=== PATIENT | male | born 1950 | race Caucasian/White ===

== ENCOUNTER 2019-02-06 14:38 | Inpatient (IN) | payer MEDICARE ==
[~2019-02-06] VITALS: Ht 172.7 cm; Wt 78.2 kg
[2019-02-06] VITALS (8 sets, daily range): BP systolic 142–174; BP diastolic 72–96
[~2019-02-06 14:38] MED LIST: ALPR0.5T6 PO; ASPI325T70 PO; CITA40TA5 PO; DOXA4TAB3 PO; FINA5TAB4 PO; HYDR-2769 PO; MECL25TA3 PO; MULT-658 PO; NIAC500T PO; OLME1TAB29 PO; PRAV40TA2 PO; SILD50TA PO
[2019-02-06 16:06] LABS: BASO # 0.1 x10^3/uL (0.0-0.2); BASO % 1 % (0-3); EOS # 0.2 x10^3/uL (0.0-0.7); EOS % 3 % (0-3); HEMATOCRIT 40.9 % (39.0-53.0); LYMPH # 1.3 x10^3/uL (1.0-4.8); LYMPH % 16 % (24-48); MEAN CORPUSCULAR HEMOGLOBIN 29 pg (25-35); MEAN CORPUSCULAR HGB CONC 34 g/dL (31-37); MEAN CORPUSCULAR VOLUME 85 fL (79-100); MONO # 0.8 x10^3/uL (0.0-1.1); MONO % 10 % (0-9); NEUT # 5.6 x10^3/uL (1.8-7.7); NEUT % 70 % (31-73); PLATELET COUNT 162 x10^3/uL (140-400); RED CELL DISTRIBUTION WIDTH 13.7 % (11.5-14.5)
--- NOTE | 2019-02-06 16:08 | PHYS DOC ---
Past Medical History Past Medical History: Depression, High Cholesterol, Hypertension, Other Additional Past Medical Histor: chronic hip pain, enlarged prostate Past Surgical History: Hip Replacement, Other Additional Past Surgical Histo: hernia repair, right hand tendon repair Alcohol Use: Occasionally Drug Use: None Adult General Chief Complaint Chief Complaint: HYPERTENSION HPI HPI Patient is a 68 year old male who presents with high blood pressure, tingling in his left arm, and headache is morning. The patient visited his primary care doctor recently and thought he been taken blood pressure medicine at home but it was not blood pressure medicine and was put on a new blood pressure medicine. His blood pressures been running high at home is 216/115 on arrival to the Emergency Department. The patient smokes multiple packs per day. Review of Systems Review of Systems Constitutional: Denies fever or chills [] Eyes: Denies change in visual acuity, redness, or eye pain [] HENT: Denies nasal congestion or sore throat [] Respiratory: Denies cough or shortness of breath [] Cardiovascular: No additional information not addressed in HPI [] GI: Denies abdominal pain, nausea, vomiting, bloody stools or diarrhea [] : Denies dysuria or hematuria [] Musculoskeletal: Denies back pain or joint pain [] Integument: Denies rash or skin lesions [] Neurologic: Reports headache, Denies focal weakness or sensory changes besides intermittent tingling down his left arm. Endocrine: Denies polyuria or polydipsia [] Complete systems were reviewed and found to be within normal limits, except as documented in this note. Current Medications Current Medications Current Medications Medications (Trade) Dose Ordered Sig/Donato Start Time Stop Time Status Last Admin Dose Admin Hydralazine HCl (Apresoline Inj) 10 mg 1X ONCE 02/06/19 16:15 02/06/19 16:16 DC 02/06/19 16:33 10 MG Nicardipine HCl 50 mg/Sodium Chloride 250 ml @ 25 mls/hr CONT PRN 02/06/19 18:00 02/06/19 18:19 25 MLS/HR Allergies Allergies Allergies Coded Allergies Type Severity Reaction Last Updated Verified No Known Drug Allergies 02/10/14 No Physical Exam Physical Exam Constitutional: Well developed, well nourished, no acute distress, non-toxic appearance. [] HENT: Normocephalic, atraumatic, bilateral external ears normal, oropharynx moist, no oral exudates, nose normal. [] Eyes: PERRLA, EOMI, conjunctiva normal, no discharge. [] Neck: Normal range of motion, no tenderness, supple, no stridor. [] Cardiovascular:Heart rate regular rhythm, no murmur [] Lungs & Thorax: Bilateral breath sounds clear to auscultation [] Abdomen: Bowel sounds normal, soft, no tenderness, no masses, no pulsatile masses. [] Skin: Warm, dry, no erythema, no rash. [] Back: No tenderness, no CVA tenderness. [] Extremities: No tenderness, no cyanosis, no clubbing, ROM intact, no edema. [] Neurologic: Alert and oriented X 3, normal motor function, normal sensory function, no focal deficits noted. [] Psychologic: Affect normal, judgement normal, mood normal. [] Current Patient Data Vital Signs Vital Signs Date Time Temp Pulse Resp B/P (MAP) Pulse Ox O2 Delivery O2 Flow Rate FiO2 02/06/19 16:33 58 235/120 02/06/19 15:40 98.6 16 97 Room Air 98.6 Lab Values Laboratory Tests Test 02/06/19 15:57 02/06/19 16:30 White Blood Count 8.0 x10^3/uL (4.0-11.0) Red Blood Count 4.80 x10^6/uL (4.30-5.70) Hemoglobin 14.0 g/dL (13.0-17.5) Hematocrit 40.9 % (39.0-53.0) Mean Corpuscular Volume 85 fL (79-100) Mean Corpuscular Hemoglobin 29 pg (25-35) Mean Corpuscular Hemoglobin Concent 34 g/dL (31-37) Red Cell Distribution Width 13.7 % (11.5-14.5) Platelet Count 162 x10^3/uL (140-400) Neutrophils (%) (Auto) 70 % (31-73) Lymphocytes (%) (Auto) 16 % (24-48) L Monocytes (%) (Auto) 10 % (0-9) H Eosinophils (%) (Auto) 3 % (0-3) Basophils (%) (Auto) 1 % (0-3) Neutrophils # (Auto) 5.6 x10^3/uL (1.8-7.7) Lymphocytes # (Auto) 1.3 x10^3/uL (1.0-4.8) Monocytes # (Auto) 0.8 x10^3/uL (0.0-1.1) Eosinophils # (Auto) 0.2 x10^3/uL (0.0-0.7) Basophils # (Auto) 0.1 x10^3/uL (0.0-0.2) Sodium Level 142 mmol/L (136-145) Potassium Level 4.2 mmol/L (3.5-5.1) Chloride Level 107 mmol/L (98-107) Carbon Dioxide Level 29 mmol/L (21-32) Anion Gap 6 (6-14) Blood Urea Nitrogen 16 mg/dL (8-26) Creatinine 0.9 mg/dL (0.7-1.3) Estimated GFR (Cockcroft-Gault) 84.4 BUN/Creatinine Ratio 18 (6-20) Glucose Level 99 mg/dL (70-99) Calcium Level 9.4 mg/dL (8.5-10.1) Total Bilirubin 0.3 mg/dL (0.2-1.0) Aspartate Amino Transferase (AST) 13 U/L (15-37) L Alanine Aminotransferase (ALT) 9 U/L (16-63) L Alkaline Phosphatase 93 U/L (46-116) Troponin I Quantitative 0.074 ng/mL (0.000-0.055) Total Protein 7.6 g/dL (6.4-8.2) Albumin 3.4 g/dL (3.4-5.0) Albumin/Globulin Ratio 0.8 (1.0-1.7) L Laboratory Tests 02/06/19 15:57 Laboratory Tests 02/06/19 16:30 EKG EKG EKG interpreted by Dr. Garcia Sinus with rate of 56, No STEMI.[] Radiology/Procedures Radiology/Procedures IMAGING REPORT Signed PATIENT: DEBBIE RCIO DACCOUNT: [id number] : 1950 LOCATION: ER AGE: 68 SEX: M EXAM STATUS: REG ER ORD. PHYSICIAN: LEXY ETIENNE APRN REASON: headache PROCEDURE: CT HEAD WO CONTRAST PQRS Compliance Statement: One or more of the following individualized dose reduction techniques were utilized for this examination: 1. Automated exposure control 2. Adjustment of the mA and/or kV according to patient size 3. Use of iterative reconstruction technique CT head without contrast 02/06/2019 3:57 PM INDICATION: Headache COMPARISON: CT maxillofacial 06/04/2012 TECHNIQUE: Multiple axial CT images of the head were obtained from skull base through the vertex without intravenous contrast. FINDINGS: Head: Ventricles, sulci and basal cisterns are within normal limits. Low-attenuation in the periventricular white matter is suggestive of chronic small vessel ischemic changes. There is no hydrocephalus. Casiano-white matter differentiation is normal. There is no acute intracranial hemorrhage. There is no mass, mass effect or midline shift. Posterior fossa is normal in appearance. Visualized portions of the orbits are normal. Small mucus retention cyst is identified in the left ethmoid air cells otherwise, paranasal sinuses are well aerated. Mastoid air cells are well aerated. Scalp and calvaria are normal. IMPRESSION: No acute intracranial hemorrhage. Electronically signed by: Ehsan Eisenberg MD (02/06/2019 4:30 PM) [facility] DICTATED and SIGNED BY: EHSAN EISENBERG MD DATE: 02/06/19 1630 [][facility] [address] [place] [address] IMAGING REPORT Signed PATIENT: DEBBIE RICO DACCOUNT: [id number] : 1950 LOCATION: ER AGE: 68 SEX: M EXAM STATUS: REG ER ORD. PHYSICIAN: LEXY ETIENNE APRN REASON: cp PROCEDURE: CHEST PA & LATERAL Exam performed: 2 views of the chest. Indication: Chest pain Date of Service: 02/06/2019 3:57 PM . Comparison : One view chest from 01/02/2015 Findings: PA and lateral radiographs of the chest reveal a normal cardiomediastinal contour. The lungs are clear. No pleural fluid is seen. The visualized osseous structures are unremarkable. Impression: No acute cardiopulmonary process seen. Electronically signed by: Carina Vazquez MD (02/06/2019 4:26 PM) [facility] DICTATED and SIGNED BY: CARINA VAZQUEZ MD DATE: 02/06/19 1626 Course & Med Decision Making Course & Med Decision Making Pertinent Labs and Imaging studies reviewed. (See chart for details) Will order labs, EKG, Chest Xray, and CT head. Also order Hyrdalazine for blood pressure. Discussed with patient that I want to admit him. The patient refuses admission and states that he has to get his animals inside. Discussed with patient the risks of walking around with high blood pressure that include , Stroke, and MT. The patient still declined admission. Imaging is unremarkable. Labs show Troponin is elevated at 0.074. 1728: Once again discussed with patient the importance of admission. BP is 233/115 during conversation. Discussed how elevated troponin is likely related to hypertensive emergency. Once again discussed risks of going home include stroke, MT, or . Patient states he will think about it. 1753: Patient agreed to stay. Will start Cardene drip and page Dr. Olmedo for admission. 181: Discussed with Dr. Olmedo who agreed to accept admission to hospital. Cardene has lowered blood pressure to 207/111. Nursing will continue to titrate. Ordered serial troponin and consulted Cards. Dragon Disclaimer Dragon Disclaimer This electronic medical record was generated, in whole or in part, using a voice recognition dictation system. Departure Departure Impression: Primary Impression: Hypertensive emergency Disposition: ADMITTED INPATIENT Admitting Physician: Althea Olmedo Condition: CRITICAL Referrals: ALTHEA OLMEDO MD (PCP) LEXY ETIENNE APRN Feb 06, 2019 16:08
[2019-02-06] MEDS ORDERED: hydrALAZINE 20 MG/ML VIAL. IVP ONE (16:15)
--- NOTE | 2019-02-06 16:29 | RAD ---
Exam performed: 2 views of the chest. Indication: Chest pain Date of Service: 02/06/2019 3:57 PM . Comparison : One view chest from 01/02/2015 Findings: PA and lateral radiographs of the chest reveal a normal cardiomediastinal contour. The lungs are clear. No pleural fluid is seen. The visualized osseous structures are unremarkable. Impression: No acute cardiopulmonary process seen. Electronically signed by: Carina Vazquez MD (02/06/2019 4:26 PM) [facility]
--- NOTE | 2019-02-06 16:32 | RAD ---
RS Compliance Statement: One or more of the following individualized dose reduction techniques were utilized for this examination: 1. Automated exposure control 2. Adjustment of the mA and/or kV according to patient size 3. Use of iterative reconstruction technique CT head without contrast 02/06/2019 3:57 PM INDICATION: Headache COMPARISON: CT maxillofacial 06/04/2012 TECHNIQUE: Multiple axial CT images of the head were obtained from skull base through the vertex without intravenous contrast. FINDINGS: Head: Ventricles, sulci and basal cisterns are within normal limits. Low-attenuation in the periventricular white matter is suggestive of chronic small vessel ischemic changes. There is no hydrocephalus. Casiano-white matter differentiation is normal. There is no acute intracranial hemorrhage. There is no mass, mass effect or midline shift. Posterior fossa is normal in appearance. Visualized portions of the orbits are normal. Small mucus retention cyst is identified in the left ethmoid air cells otherwise, paranasal sinuses are well aerated. Mastoid air cells are well aerated. Scalp and calvaria are normal. IMPRESSION: No acute intracranial hemorrhage. Electronically signed by: Kaylynn Wilder MD (02/06/2019 4:30 PM) [facility]
[2019-02-06 17:00] LABS: CALCIUM 9.4 mg/dL (8.5-10.1); CREATININE 0.9 mg/dL (0.7-1.3); GFR 84.4; POTASSIUM 4.2 mmol/L (3.5-5.1)
[2019-02-06 17:09] LABS: ALBUMIN 3.4 g/dL (3.4-5.0); ALBUMIN/GLOBULIN RATIO 0.8 (1.0-1.7); TOTAL BILIRUBIN 0.3 mg/dL (0.2-1.0); TOTAL PROTEIN 7.6 g/dL (6.4-8.2)
[2019-02-06] MEDS ORDERED: MORPHINE SULFATE 2 MG/ML VIAL. IV PRN (18:45)
[2019-02-06] MEDS ORDERED: ONDANSETRON PF 4 MG/2 ML VIAL. IV PRN (18:45)
--- NOTE | 2019-02-06 20:10 | NUR ---
Pt arrived on unit via cart accompanied by ED RN. Pt oriented to unit policies and procedures, call light, and bathroom usage. Pt able to transfer independently into ICU bed, height and weight obtained, drip rate verified, report received and assessment performed. pt has belongings with him in a bag and brought medications from home. Medications reconciled and orders received from Dr. Mccarthy to restart home medications.
[2019-02-06] MEDS ORDERED: OLAN5TAB9 PO (22:16)
[2019-02-06] MEDS ORDERED: IRBE300T3 PO (22:16)
[2019-02-06] MEDS ORDERED: CARI1.5C PO (22:16)
[2019-02-06] MEDS ORDERED: ACETAMINOPHEN 325 MG TABLET. PO PRN (22:30)
[2019-02-06] MEDS ORDERED: hydrALAZINE 20 MG/ML VIAL. IVP PRN (22:30)
[2019-02-06] MEDS ORDERED: ASPI325T8 PO (22:42)
[2019-02-06] MEDS ORDERED: amLODIPine BESYLATE 5 MG TABLET PO ONE (22:45)
[2019-02-06] MEDS ORDERED: CARIPRAZINE HYDROCHLORIDE 1.5 MG PO PRN (22:45)
[2019-02-06] MEDS ORDERED: OLANZapine 5 MG TABLET PO PRN (23:00)
[2019-02-06] MEDS ORDERED: DOXAZOSIN MESYLATE 4 MG TABLET. PO SCH (23:00)
[2019-02-06] MEDS: ASPIRIN 325 MG TABLET PO SCH (23:42)
[2019-02-06] MEDS: ALPRAZolam 0.5 MG TABLET PO SCH (23:43)
[2019-02-07] VITALS (10 sets, daily range): BP systolic 129–169; BP diastolic 71–93
[2019-02-07 05:01] LABS: CALCIUM 9.1 mg/dL (8.5-10.1); CREATININE 0.8 mg/dL (0.7-1.3); GFR 96.7; POTASSIUM 3.4 mmol/L (3.5-5.1)
--- NOTE | 2019-02-07 06:28 | EKG ---
[facility] [address] [place] [address] Test Date: 2019-02-06 Test Time: 16:24:15 Pat Name: DEBBIE RICO Department: Room: 114 1 Gender: M Motion Picture Commentator: : 1950 Requested By: LEXY ETIENNE Order Number: [id number] Reading MD: Elbert Brooks MD Measurements Intervals [place] Rate: 55 P: 4 RI: 156 QRS: -6 QRSD: 84 T: 19 QT: 412 QTc: 400 Interpretive Statements SINUS RHYTHM Electronically Signed On 02-07-2019 15:16:20 CDT by Elbert Brooks MD
[2019-02-07] MEDS: ALPRAZolam 0.5 MG TABLET PO SCH ×2 (08:10→13:05)
[2019-02-07] MEDS: ASPIRIN 325 MG TABLET PO SCH (08:10)
[2019-02-07] MEDS ORDERED: FINASTERIDE 5 MG TABLET. PO SCH (09:00)
[2019-02-07] MEDS ORDERED: amLODIPine BESYLATE 5 MG TABLET PO SCH (09:00)
[2019-02-07] MEDS ORDERED: OLANZapine 5 MG TABLET PO SCH (09:00)
[2019-02-07] MEDS ORDERED: CARIPRAZINE HYDROCHLORIDE 1.5 MG PO SCH (09:00)
[2019-02-07] MEDS ORDERED: DOXAZOSIN MESYLATE 4 MG TABLET. PO SCH (09:00)
[2019-02-07] MEDS ORDERED: ENOXAPARIN 40 MG/0.4 ML SYRINGE. SQ SCH (09:00)
--- NOTE | 2019-02-07 10:37 | PDOC2 ---
NORMA,JOSUEZOIE GREEN 02/07/19 1037: CARDIAC CONSULT DATE OF CONSULT Date of Consult DATE: 02/07/19 TIME: 10:35 REASON FOR CONSULT Reason for Consult: Hypertensive urgency Elevated troponin REFERRING PHYSICIAN Referring Physician: Sascha Bradshaw APRN SOURCE Source: Chart review, Patient HISTORY OF PRESENT ILLNESS HISTORY OF PRESENT ILLNESS This is a 68 yo male who presented secondary to headache, elevated blood pressure and tingling in his left arm. Patient reports blood pressure has been significantly elevated with SBP near 200 for the last 3 weeks. Associated with MCCLOUD, which is unusual for him. Yesterday, blood pressure was 230/110 so he call PCP's office. Was referred to the ED for further evaluation and treatment. Blood pressure significantly elevated upon arrival. Was placed on Cardene gtt. Patient denies any shortness of breath, chest pain, palpitations, dizziness, diaphoresis, or nausea/vomiting. MCCLOUD resolved this morning following blood pressure control. Reports having stress test about 3 months ago, thinks it was conducted here, but I do not see record of this. Reviewed [facility] records, but no stress test found. PAST MEDICAL HISTORY Cardiovascular: CAD (s/p PCI/stent about 10 years ago), HTN, Hyperlipidemia Pulmonary: COPD Psych: Anxiety, Depression Musculoskeletal: Osteoarthritis Renal/: Benign prostatic enlarg. PAST SURGICAL HISTORY Past Surgical History: Hernia Repair, Total hip replacement (right ), Other (right hand surgery ) FAMILY HISTORY Family History: Heart Disease SOCIAL HISTORY Smoke: <1 pack per day ALCOHOL: occassional Drugs: None Lives: Roommate (girlfriend ) CURRENT MEDICATIONS CURRENT MEDICATIONS Current Medications Medications (Trade) Dose Ordered Sig/Donato Route PRN Reason Start Time Stop Time Status Last Admin Dose Admin Hydralazine HCl (Apresoline Inj) 10 mg 1X ONCE IVP 02/06/19 16:15 02/06/19 16:16 DC 02/06/19 16:33 Nicardipine HCl 50 mg/Sodium Chloride 250 ml @ 25 mls/hr CONT PRN IV SEE I/O RECORD 02/06/19 18:00 02/06/19 19:04 Morphine Sulfate (Morphine Sulfate) 2 mg PRN Q2HR PRN IV PAIN 02/06/19 18:45 02/07/19 18:44 02/07/19 05:36 Acetaminophen (Tylenol) 650 mg PRN Q6HRS PRN PO HEADACHE 02/06/19 22:30 02/07/19 00:30 Amlodipine Besylate (Norvasc) 5 mg DAILY PO 02/07/19 09:00 02/07/19 08:15 Amlodipine Besylate (Norvasc) 5 mg 1X ONCE PO 02/06/19 22:45 02/06/19 22:46 DC 02/06/19 23:43 Hydralazine HCl (Apresoline Inj) 10 mg PRN Q4HRS PRN IVP ELEVATED BP, SEE COMMENTS 02/06/19 22:30 02/07/19 05:05 Alprazolam (Xanax) 0.5 mg TID PO 02/06/19 23:00 02/07/19 08:15 Finasteride (Proscar) 5 mg DAILY PO 02/07/19 09:00 02/07/19 08:15 Aspirin (Graciela Aspirin) 325 mg DAILYWBKFT PO 02/06/19 23:00 02/07/19 08:15 Doxazosin Mesylate (Cardura) 4 mg DAILY PO 02/07/19 09:00 02/07/19 08:15 Olanzapine (ZyPREXA) 5 mg DAILY PO 02/07/19 09:00 02/07/19 08:15 ALLERGIES ALLERGIES: Coded Allergies: No Known Drug Allergies (Unverified , 02/10/14) ROS Review of System 14 point ROS conducted with pertinent positives noted above in HPI PHYSICAL EXAM General: Alert, Oriented X3, Cooperative, No acute distress HEENT: Atraumatic, Mucous membr. moist/pink Lungs: Clear to auscultation, Normal air movement Heart: Regular rate, Normal S1, Normal S2, Other (2/6 systolic murmur ) Abdomen: Soft, No tenderness Extremities: No edema, Normal pulses Skin: No significant lesion Neuro: Normal speech, Sensation intact Psych/Mental Status: Mental status NL, Mood NL MUSCULOSKELETAL: Osteoarthritic changes both hands VITALS/I&O VITALS/I&O: Vital Signs Date Time Temp Pulse Resp B/P (MAP) Pulse Ox O2 Delivery O2 Flow Rate FiO2 02/07/19 08:15 80 159/72 02/07/19 08:00 Room Air 02/07/19 07:00 97.9 17 98 97.9 I & O 02/06/19 02/06/19 02/07/19 15:00 23:00 07:00 Intake Total 271 ml Output Total 950 ml Balance -679 ml LABS Lab: Laboratory Tests Test 02/06/19 15:57 02/06/19 16:30 02/06/19 21:40 02/07/19 04:30 White Blood Count 8.0 x10^3/uL (4.0-11.0) Red Blood Count 4.80 x10^6/uL (4.30-5.70) Hemoglobin 14.0 g/dL (13.0-17.5) Hematocrit 40.9 % (39.0-53.0) Mean Corpuscular Volume 85 fL (79-100) Mean Corpuscular Hemoglobin 29 pg (25-35) Mean Corpuscular Hemoglobin Concent 34 g/dL (31-37) Red Cell Distribution Width 13.7 % (11.5-14.5) Platelet Count 162 x10^3/uL (140-400) Neutrophils (%) (Auto) 70 % (31-73) Lymphocytes (%) (Auto) 16 % (24-48) L Monocytes (%) (Auto) 10 % (0-9) H Eosinophils (%) (Auto) 3 % (0-3) Basophils (%) (Auto) 1 % (0-3) Neutrophils # (Auto) 5.6 x10^3/uL (1.8-7.7) Lymphocytes # (Auto) 1.3 x10^3/uL (1.0-4.8) Monocytes # (Auto) 0.8 x10^3/uL (0.0-1.1) Eosinophils # (Auto) 0.2 x10^3/uL (0.0-0.7) Basophils # (Auto) 0.1 x10^3/uL (0.0-0.2) Sodium Level 142 mmol/L (136-145) 143 mmol/L (136-145) Potassium Level 4.2 mmol/L (3.5-5.1) 3.4 mmol/L (3.5-5.1) L Chloride Level 107 mmol/L (98-107) 108 mmol/L (98-107) H Carbon Dioxide Level 29 mmol/L (21-32) 27 mmol/L (21-32) Anion Gap 6 (6-14) 8 (6-14) Blood Urea Nitrogen 16 mg/dL (8-26) 10 mg/dL (8-26) Creatinine 0.9 mg/dL (0.7-1.3) 0.8 mg/dL (0.7-1.3) Estimated GFR (Cockcroft-Gault) 84.4 96.7 BUN/Creatinine Ratio 18 (6-20) Glucose Level 99 mg/dL (70-99) 98 mg/dL (70-99) Calcium Level 9.4 mg/dL (8.5-10.1) 9.1 mg/dL (8.5-10.1) Total Bilirubin 0.3 mg/dL (0.2-1.0) Aspartate Amino Transferase (AST) 13 U/L (15-37) L Alanine Aminotransferase (ALT) 9 U/L (16-63) L Alkaline Phosphatase 93 U/L (46-116) Troponin I Quantitative 0.074 ng/mL (0.000-0.055) 0.088 ng/mL (0.000-0.055) 0.117 ng/mL (0.000-0.055) Total Protein 7.6 g/dL (6.4-8.2) Albumin 3.4 g/dL (3.4-5.0) Albumin/Globulin Ratio 0.8 (1.0-1.7) L Laboratory Tests 02/06/19 15:57 Laboratory Tests 02/06/19 16:30 02/07/19 04:30 STRESS TEST STRESS TEST Conclusion 1. No evidence of stress induced EKG changes. 2. Normal myocardial perfusion at stress and rest. 3. Normal EF at stress of > 70% 4. Low risk study. DATE: 09/07/15 1447 ASSESSMENT/PLAN ASSESSMENT/PLAN 1. Malignant hypertension; off Cardene gtt. BP better controlled with addition of amlodipine 2. Mild troponin elevation; highest 0.117. Most probably type II, demand ischemia in the setting of above. 3. CAD s/p PCI/stent about 10 years ago. 4. Hyperlipidemia; statin 5. Hypokalemia Recommendations ASA, statin Lipid panel Echo to assess LV systolic function Outpatient ischemic evaluation unless echo significantly abnormal. Supportive care LIZBETH DOSHI MD 02/07/19 6543: CARDIAC CONSULT ASSESSMENT/PLAN ASSESSMENT/PLAN Patient seen and examined. Agree with above nurse practitioner note. 68-year-old man presenting with hypertension. Troponin elevation related to high blood pressure. No obvious other ischemic findings. Echo within normal limits. Restart home medications and he feels that his angiotensin receptor chacha is not working and therefore we will put him on amlodipine. Supportive care for now. Follow-up in the office as needed. JOSUE GREEN APRN Feb 07, 2019 10:37 LIZBETH DOSHI MD Feb 07, 2019 18:38
[2019-02-07] MEDS ORDERED: POTASSIUM CHLORIDE 20 MEQ TABLET.ER. PO ONE (10:45)
--- NOTE | 2019-02-07 11:05 | CARD ---
MR#: [id number] Date of Study: 02/07/2019 Ordering Physician: JOSUE GREEN, Referring Physician: JOSUE GREEN, Tech: Trini Tay TANNER APPROVED REPORT EXAM: Two-dimensional and M-mode echocardiogram with Doppler and color Doppler. Other Information Quality : AverageHR: 76bpm Rhythm : PVC's INDICATION Elevated Troponin 2D DIMENSIONS RVDd3.5 (2.9-3.5cm)Left Atrium(2D)3.5 (1.6-4.0cm) IVSd1.6 (0.7-1.1cm)Aortic Root(2D)3.2 (2.0-3.7cm) LVDd4.4 (3.9-5.9cm)LVOT Diameter2.0 (1.8-2.4cm) PWd1.3 (0.7-1.1cm)LVDs2.3 (2.5-4.0cm) FS (%) 47.4 %SV68.2 ml LVEF(%)79.1 (>50%) M-Mode DIMENSIONS Left Atrium(MM)4.57 (2.5-4.0cm)Aortic Root3.58 (2.2-3.7cm) Aortic Valve AoV Peak Shaheed.197.4cm/sAoV VTI35.1cm AO Peak GR.15.6mmHgLVOT VTI 24.66cm AO Mean GR.10mmHgAVA (VTI)2.20cm2 AI P 1/2 Elbz600cr Mitral Valve MV E Uvtlyabg16.5cm/sMV DECEL NCJH098bo MV A Ppdkzfku56.9cm/sE/A Ratio0.6 MV A Jnqkdhhx13hf TDI Lateral E' P. V7.08cm/sMedial E' P. V6.50cm/s E/Lateral E'8.7E/Medial E'9.5 LEFT VENTRICLE The left ventricle is normal size. There is moderate concentric left ventricular hypertrophy. The lef t ventricle is hyperdynamic. The Ejection Fraction is >70%. There is normal LV segmental wall motion. Transmitral Doppler flow pattern is Grade I-abnormal relaxation pattern. RIGHT VENTRICLE The right ventricle is normal size. There is normal right ventricular wall thickness. The right ventr icular systolic function is normal. ATRIA The left atrium is mildly dilated. The right atrium size is normal. The interatrial septum is intact with no evidence for an atrial septal defect or patent foramen ovale as noted on 2-D or Doppler imagi ng. AORTIC VALVE The aortic valve is normal in structure and function. The aortic valve is trileaflet. Doppler and Col or Flow revealed mild to moderate aortic regurgitation. There is no significant aortic valvular steno sis. MITRAL VALVE Mitral annular calcification is moderate. There is no evidence of mitral valve prolapse. There is no mitral valve stenosis. Doppler and Color-flow revealed trace mitral regurgitation. TRICUSPID VALVE The tricuspid valve is normal in structure and function. Doppler and Color Flow revealed no tricuspid valve regurgitation noted. There is no tricuspid valve prolapse or vegetation. There is no tricuspid valve stenosis. PULMONIC VALVE The pulmonic valve is not well visualized. GREAT VESSELS The aortic root is normal in size. The ascending aorta is normal in size. The IVC is normal in size a nd collapses >50% with inspiration. PERICARDIAL EFFUSION There is no evidence of significant pericardial effusion. Critical Notification Critical Value: No <Conclusion> The left ventricle is hyperdynamic. The Ejection Fraction is >70%. There is normal LV segmental wall motion. Transmitral Doppler flow pattern is Grade I-abnormal relaxation pattern. Mild to moderate aortic regurgitation. Trace mitral regurgitation. There is no evidence of significant pericardial effusion. Signed by : Loi Osei, Electronically Approved : 02/07/2019 11:05:47
[2019-02-07 11:32] LABS: MAGNESIUM 2.1 mg/dL (1.8-2.4)
[2019-02-07 11:33] LABS: CHOLESTEROL/HDL RATIO 4.4
--- NOTE | 2019-02-07 14:18 | HP ---
ADMIT DATE: 02/06/2019 CHIEF COMPLAINT AND HISTORY OF PRESENT ILLNESS: This 68-year-old white male is well known to me in followup in the office. The patient had several days of headache with extremely high blood pressures, presenting to the Emergency Room where he was found to be hypertensive emergency requiring Cardene drip and admitted to the ICU. PAST MEDICAL HISTORY: Remarkable for hypertension, coronary artery disease, hyperlipidemia, depression, BPH. PAST SURGICAL HISTORY: He has had prior hip replacement, hernia repair, right hand tendon repair. MEDICATIONS: Brought with the patient ____. ALLERGIES: No known drug allergies. SOCIAL HISTORY: The patient has a history of smoking, occasionally drinks some alcohol ____ abuse drugs. REVIEW OF SYSTEMS: Remarkable for headache ____. HEAD, EYES, EARS, NOSE AND THROAT: Unremarkable. NECK: Supple, without or thyromegaly. CHEST: ____. HEART: Regular rate and rhythm without S3, S4 or murmur. ABDOMEN: Soft, nontender, without hepatosplenomegaly or mass. EXTREMITIES: Without cyanosis, clubbing or edema. NEUROLOGIC: Intact. LABORATORY DATA: CBC on admission is within normal limits. ____. Renal function is within normal limits. IMPRESSION: 1. Hypertensive urgency as above. 2. History of coronary artery disease. 3. Bump in troponin. PLAN: Await cardiological evaluation. I believe he is stable enough at this point in time to move out of the ICU and the same has been discussed with nursing. We will continue amlodipine ____ treated appropriately. ALTHEA OLMEDO MD DR: JANEEN/donnell JOB#: [id number] / [id number]
--- NOTE | 2019-02-07 16:09 | NUR ---
SS following for discharge planning. SS reviewed pt chart. Pt is from home and is currently on room air. No discharge needs noted at this time. SS will continue to follow for discharge planning.
[2019-02-07] MEDS ORDERED: AMLO5TAB10 PO (17:20)
--- NOTE | 2019-02-07 18:37 | NUR ---
Discharge Note: PT DISCHARGED HOME WITH SELF CARE. PT LEFT FACILITY VIA PRIVATE VEHICLE WITH FRIEND AT 1835. PT STABLE AND ALERT UPON DISCHARGE. PT PIV REMOVED FROM R FA WITHOUT COMPLICATIONS BANDAGE APPLIED. PT EDUCATED ABOUT DISCHARGE INSTRUCTIONS, DISCHARGE MEDICATIONS, AND FOLLOW-UP INSTRUCTIONS. PRESCRIPTION FOR AMLODIPINE 5MG PO DAILY CALLED INTO [facility] IN [place]. PT VOICED NO CONCERNS AT THIS TIME. DEBBIE RICO ICU Discharge instructions and discharge home medications reviewed with Patient and a copy given. All questions have been answered and understanding verbalized.
--- NOTE | 2019-02-07 20:55 | DS ---
DATE OF DISCHARGE: 02/07/2019 PRIMARY DIAGNOSIS: Hypertensive urgency. ADDITIONAL DIAGNOSES: History of coronary artery disease, elevated troponin. CHIEF COMPLAINT AND HISTORY OF PRESENT ILLNESS: This 68-year-old white male admitted through the Emergency Room with headache and extremely high blood pressure. He was placed on a Cardene drip and admitted to the intensive care unit. SUMMARY OF STAY: The patient was admitted. Blood pressures came down with the Cardene; he was given p.o. amlodipine. Cardene was able to be discontinued with good blood pressures throughout the day. Cardiology saw him and felt troponin was not of significance and had an echocardiogram that looked relatively normal. It was felt safe to discharge on p.o. amlodipine and this was accomplished. DISPOSITION: The patient is discharged to home. DIET: Regular. ACTIVITY: As tolerated, office in 1 week. DISCHARGE MEDICATIONS: Include his regular home medications plus amlodipine 5 mg daily. ALTHEA OLMEDO MD DR: JANEEN/donnell JOB#: [id number] / [id number]
[2019-02-07] MEDS ORDERED: ATORVASTATIN CALCIUM 10 MG TABLET. PO SCH (21:00)
== END 2019-02-07 18:40 | disposition home or self-care (01) | DRG 305 ==
LOC: ER 14:38 → 1 WEST ICU 18:31
PROVIDERS: ADMIT Family Medicine; ATTEND Family Medicine
DX: I16.1 Hypertensive emergency (principal); E78.00 Pure hypercholesterolemia, unspecified; E78.5 Hyperlipidemia, unspecified; E87.6 Hypokalemia; F17.210 Nicotine dependence, cigarettes, uncomplicated; I10 Essential (primary) hypertension; I25.10 Atherosclerotic heart disease of native coronary artery without angina pectoris; J44.9 Chronic obstructive pulmonary disease, unspecified; N40.0 Benign prostatic hyperplasia without lower urinary tract symptoms; Z96.641 Presence of right artificial hip joint; Z95.5 Presence of coronary angioplasty implant and graft; F32.9 Major depressive disorder, single episode, unspecified; F41.9 Anxiety disorder, unspecified; G89.29 Other chronic pain; M19.90 Unspecified osteoarthritis, unspecified site
CPT/HCPCS: 36415; 70450; 71046; 80048; 80053; 80061; 83735; 84443; 84484; 85025; 93005; 93306; J0360; J2270; J7050; 99285-25; G0378; J7030

== ENCOUNTER 2020-12-08 14:14 | Inpatient (IN) | payer MEDICARE ==
[~2020-12-08] VITALS: Ht 175.3 cm; Wt 83.5 kg
[~2020-12-08 14:14] MED LIST changes: +AMLO-186 PO; +ASPI325T8 PO; +CARI1.5C PO; +CYAN50009 PO; +IRBE300T23 PO; +MECL-75 PO; -MECL25TA3 PO; +METO25TA4 PO; +OLAN5TAB67 PO; +SULF1TAB24 PO
[2020-12-08] MEDS ORDERED: methylPREDNISolone SOD SUCC PF 125 MG/2 ML VIAL. IV ONE (14:30)
[2020-12-08] MEDS ORDERED: ACETAMINOPHEN 500 MG TABLET PO ONE (14:30)
[2020-12-08] MEDS ORDERED: ALBUTEROL SULFATE 2.5 MG/3 ML NEBU. NEB ONE (14:30)
--- NOTE | 2020-12-08 14:40 | PHYS DOC ---
Past Medical History Past Medical History: Anxiety, Depression, High Cholesterol, Hypertension, Other Additional Past Medical Histor: chronic hip pain, enlarged prostate (ARLINE MINER BOAT PULLER) Past Surgical History: Hip Replacement, Other Additional Past Surgical Histo: hernia repair, right hand tendon repair (ARLINE MINER BOAT PULLER) Smoking Status: Current Every Day Smoker Alcohol Use: Occasionally Drug Use: None (ARLINE MINER BOAT PULLER) General Adult HPI: HPI: Patient is a 70 year old male who presents with 1 week of generally just not feeling good and weakness with some diarrhea. He is now more short of air and running a fever of 103.0 axillary upon arrival. Patient is tachycardic. He is not at this time requiring oxygen. He said he did 3 breathing treatments prior to EMS. Patient is not vaccinated for Covid. Patient has a history of depression, anxiety, hip replacement, smoker, hernia repair, COPD, A. fib, hypertension high cholesterol. Patient currently denies chest pain, dizziness, headache, numbness or tingling, focal weakness, vision change, abdominal pain, nausea, vomiting, constipation or diarrhea today. (ARLINE MINER BOAT PULLER) Review of Systems: Review of Systems: Constitutional: + fever or chills. [] Eyes: Denies change in visual acuity. [] HENT: Denies nasal congestion or sore throat. [] Respiratory: +cough or +shortness of breath. [] Cardiovascular: Denies chest pain or edema. [] GI: Denies abdominal pain, nausea, vomiting, bloody stools or +diarrhea. [] : Denies dysuria. [] Musculoskeletal: Denies back pain or joint pain. + Generalized weakness [] Integument: Denies rash. [] Neurologic: Denies headache, focal weakness or sensory changes. [] Endocrine: Denies polyuria or polydipsia. [] Lymphatic: Denies swollen glands. [] Psychiatric: Denies depression or anxiety. [] (ARLINE MINER BOAT PULLER) Heart Score: C/O Chest Pain: No HEART Score for Chest Pain: HEART Score for Chest Pain Response (Comments) Value History Slighlty/Non-Suspicious 0 ECG Nonspecific Repolarizatio 1 Age > 65 2 Risk Factors 1 or 2 Risk Factors 1 Troponin < Normal Limit 0 Total 4 Risk Factors: Risk Factors: DM, Current or recent (<one month) smoker, HTN, HLP, family history of CAD, obesity. Risk Scores: Score 0 - 3: 2.5% MACE over next 6 weeks - Discharge Home Score 4 - 6: 20.3% MACE over next 6 weeks - Admit for Clinical Observation Score 7 - 10: 72.7% MACE over next 6 weeks - Early Invasive Strategies ([facility] APRN) Current Medications: Current Medications Medications (Trade) Dose Ordered Sig/Donato Start Time Stop Time Status Last Admin Dose Admin Methylprednisolone Sodium Succinate (SOLU-Medrol 125MG VIAL) 125 mg 1X ONCE 12/08/20 14:30 12/08/20 14:31 UNV ([facility] APRN) Allergies: Allergies: Allergies Coded Allergies Type Severity Reaction Last Updated Verified No Known Drug Allergies 02/10/14 No ([facility] APRN) Physical Exam: PE: Constitutional: Well developed, well nourished, no acute distress, non-toxic appearance. [] HENT: Normocephalic, atraumatic, bilateral external ears normal, oropharynx moist, no oral exudates, nose normal. [] Eyes: PERRLA, EOMI, conjunctiva normal, no discharge. [] Neck: Normal range of motion, no tenderness, supple, no stridor. [] Cardiovascular:Heart rate regular rhythm, no murmur [] Lungs & Thorax: Bilateral upper breath sounds expiratory wheezing and lower diminished to auscultation [] Abdomen: Bowel sounds normal, soft, no tenderness, no masses, no pulsatile masses. [] Skin: Warm, dry, no erythema, no rash. [] Back: No tenderness, no CVA tenderness. [] Extremities: No tenderness, no cyanosis, no clubbing, ROM intact, no edema. [] Neurologic: Alert and oriented X 3, normal motor function, normal sensory function, no focal deficits noted. [] Psychologic: Affect normal, judgement normal, mood normal. [] ([facility] BOAT PULLER) EKG: EK and read by Dr. Hunt this is sinus tach at 114 with atrial premature complexes and no STEMI [] [address] Hunt as Irregular VTACH ([facility] BO[facility] PULLER) Radiology/Procedures: Radiology/Procedures: [] Impression: [facility] [address] [place] [address] IMAGING REPORT Signed PATIENT: DEBBIE RICOUNT: [id number] : 1950 LOCATION: ER AGE: 70 SEX: M EXAM STATUS: PRE ER ORD. PHYSICIAN: ARLINE MINER APRN REASON: soa, fever PROCEDURE: PORTABLE CHEST 1V XR CHEST 1V History: Reason: soa, fever / Spl. Instructions: / History: Comparison: August 09, 2019 Findings: Right upper lobe consolidations. No pleural effusion. No pneumothorax. Prior granulous disease within the chest. Unchanged heart size. Impression: 1. Right upper lobe consolidations, concerning for pneumonia. Recommend follow- up to ensure resolution. Electronically signed by: Boom Womack DO (12/08/2020 3:04 PM) [id number] DICTATED and SIGNED BY: BOOM WOMACK DO DATE: 12/08/20 [id number] 0 (ARLINE MINER APRN) Course & Med Decision Making: Course & Med Decision Making Pertinent Labs and Imaging studies reviewed. (See chart for details) COVID-19 CRITERIA: The patient was evaluated during the global COVID-19 pandemic, and that diagnosis was suspected/considered upon their initial presentation. Their evaluation, treatment and testing was consistent with current guidelines for patients who present with complaints or symptoms that may be related to COVID-19. See HPI. Alert and oriented x4. Not recurrently requiring any oxygen. Abdomen soft and nontender. Skin is pale warm and dry. Speaks in full clear sentences. Follows all commands. Lungs have some inspiratory wheezing in the upper lobes and diminished in lower lobes bilaterally. Patient states he did not take anything for his fever at home. He is given a 1000 milligrams of Tylenol, Solu-Medrol and albuterol treatment. Patient is given Zosyn IV. Chest x-ray shows pneumonia. ABG showing to Dr. Hunt. Patient is to tachypenic. Patient's heart rate has gotten irregular running anywhere from 110-130s. Patient admitted to Dr. Mccarthy. Patient is having runs of ventricular tachycardia. I did let Dr. Mccarthy know this when I called him. Patient started on amiodarone. I have spoken to Dr. Eduardo barahona and he states that he will going to see the patient. [] (ARLINE MINER APRN) Course & Med Decision Making Work alongside nurse practitioner Arline. Patient initially was seen for hypoxia and pneumonia. X-ray is concerning for COVID-19. Patient is not vaccinated. I evaluated the patient when he started having issues with ventricular tachycardia. Patient is having several long runs of ventricular tachycardia. Amiodarone bolus and amiodarone drip will be ordered. Patient was discussed with the on-call plush cutter Dr. Spangler. He agrees with amiodarone. He also recommends magnesium. Patient will need to be admitted to the ICU. I have discussed his results and our concerns with the patient. (DEB HUNT MD) Dragon Disclaimer: Dragon Disclaimer: This electronic medical record was generated, in whole or in part, using a voice recognition dictation system. (ARLINE MINER APRN) COVID-19 Patient Risks: Age 65 or older: Yes Sign of co-morbidity: Yes Exp to person + for COVID: No Exp to PUI: No Travel from affected area: No Lower respiratory symptoms: Yes Fever: Yes Other: Yes (diarrhea) (ARLINE MINER APRN) PPE Use: Full PPE with N95 mask or PAPR: Yes (ARLINE MINER APRN) Date and Time of Reassessment Date: Dec 08, 2020 Time: 15:11 (ARLINE MINER APRN) Fluid Challenge Is the fluid challenge complet: No IBW Target Volume Used: Yes BMI > 30: No (ARLINE MINER APRN) Vital Signs Vital Signs: Vital Signs Date Time Temp Pulse Resp B/P (MAP) Pulse Ox O2 Delivery O2 Flow Rate FiO2 12/08/20 14:14 103.0 123 30 135/80 (73) 95 Room Air 103.0 Temperature Source: Axillary (ARLINE MINER APRN) Temperature Source: Axillary (DEB HUNT MD) Respirations Respiratory Effort: Shortness of breath Respiratory Pattern: Tachypnea (ARLINE MINER APRN) Cardiovascular Pulse Rhythm: Irregular Heart: Nml S1, S2, no murmurs (BAFUS,ARLINE M BOAT PULLER) Lung Sounds Breath Sounds: Wheezes (BAFUS,ARLINE M BOAT PULLER) Capillary Refil Capillary Refill: Rt Hand < 3 seconds (BAFUS,ARLINE M BOAT PULLER) Peripheral Pulse Pulse Location: Radial Pulse Strength: Normal (2+) Pulse Assessment Method: Monitor (ARLINE MINER APRN) Pulse Assessment Method: Monitor (DEB HUNT MD) Integumentary Skin: Warm Skin Moisture: Dry Skin Turgor: Normal Skin Color: warm Fingernail Color: WNL (BAFUS,ARLINE M BOAT PULLER) Critical Care Time Critical care time was [] minutes exclusive of procedures. (OSMAN MINERA M PETER) Critical Care Time Critical Care: Authorized and Performed by: Deb Hunt MD Total critical care time: approximately 40 minutes Due to a high probability of clinically significant, life threatening deterioration, the patient required my highest level of preparedness to intervene emergently and I personally spent this critical care time directly and personally managing the patient. This critical care time included obtaining a history; examining the patient; pulse oximetry; ventilator management if necess elenita; ordering and review of studies; arranging urgent treatment with development of a management plan; evaluation of patient's response to treatment; frequent reassessment; discussion with patient/family; and, discussions with other providers. This critical care time was performed to assess and manage the high probability of imminent, life-threatening deterioration that could result in multi-organ failure. It was exclusive of separately billable procedures and treating other patients and teaching time. Please see MDM section and the rest of the note for further information on patient assessment and treatment. (DEB HUNT MD) Departure Departure Impression: Primary Impression: Pneumonia Qualified Codes: J18.9 - Pneumonia, unspecified organism Additional Impressions: Person under investigation for COVID-19 SIRS (systemic inflammatory response syndrome) Ventricular tachycardia Hypokalemia Elevated troponin Hypomagnesemia Disposition: ADMITTED INPATIENT Admitting Physician: Althea Mccarthy (ARLINE MINER APRN) Condition: GUARDED Referrals: ALTHEA MCCARTHY MD (PCP) ARLINE MINER APRN Dec 08, 2020 14:40 DEB HUNT MD Dec 08, 2020 16:26
[2020-12-08] MEDS ORDERED: PIPERACILLIN/TAZOBACTAM 3.375 GM in IV NORMAL SALINE 50ML 50 ML IV ONE (14:45)
[2020-12-08] MEDS ORDERED: IV NORMAL SALINE 1000ML BAG 1,000 ML IV ONE (14:45)
[2020-12-08 15:03] LABS: BASO % 0 % (0-3); EOS % 0 % (0-3); HEMOGLOBIN 14.3 g/dL (13.0-17.5); LYMPH # 0.1 x10^3/uL (1.0-4.8); LYMPH % 1 % (24-48); MEAN CORPUSCULAR HEMOGLOBIN 31 pg (25-35); MEAN CORPUSCULAR HGB CONC 35 g/dL (31-37); MEAN CORPUSCULAR VOLUME 90 fL (79-100); MONO # 0.4 x10^3/uL (0.0-1.1); MONO % 4 % (0-9); NEUT # 9.9 x10^3/uL (1.8-7.7); NEUT % 94 % (31-73); PLATELET COUNT 126 x10^3/uL (140-400); RED BLOOD COUNT 4.56 x10^6/uL (4.30-5.70); RED CELL DISTRIBUTION WIDTH 13.1 % (11.5-14.5); WHITE BLOOD COUNT 10.5 x10^3/uL (4.0-11.0)
[2020-12-08 15:04] LABS: BASE EXCESS COOX 0 mmol/L (-3-3); HCO3 COOX 20 mmol/L (21-28); METHEMOGLOBIN 0.5 % (0.0-1.9); OXYHEMOGLOBIN 93.9 %; PCO2 COOX 21 mmHg (35-46); PO2 COOX 63 mmHg (65-108); SAT O2 COOX 95 % (92-99)
--- NOTE | 2020-12-08 15:06 | EKG ---
[facility] [address] [place] [address] Test Date: 2020-12-08 Test Time: 14:25:53 Pat Name: DEBBIE RICO Department: Room: Gender: M Bioinformatics Engineer: : 1950 Requested By: CAMERON MINER Order Number: [id number] Reading MD: Measurements Intervals [place] Rate: 114 P: 0 WA: 118 QRS: 13 QRSD: 80 T: 9 QT: 314 QTc: 436 Interpretive Statements SINUS TACHYCARDIA ATRIAL PREMATURE COMPLEX(ES) T ABNORMALITY IN ANTEROLATERAL LEADS INFEROLATERAL LEADS ABNORMAL ECG RI6.01 No previous ECG available for comparison
--- NOTE | 2020-12-08 15:06 | RAD ---
XR CHEST 1V History: Reason: soa, fever / Spl. Instructions: / History: Comparison: August 09, 2019 Findings: Right upper lobe consolidations. No pleural effusion. No pneumothorax. Prior granulous disease within the chest. Unchanged heart size. Impression: 1. Right upper lobe consolidations, concerning for pneumonia. Recommend follow-up to ensure resoluti on. Electronically signed by: Boom Womack DO (12/08/2020 3:04 PM) [id number]
[2020-12-08] MEDS ORDERED: ACETAMINOPHEN 325 MG TABLET. PO PRN (15:15)
--- NOTE | 2020-12-08 15:56 | NUR ---
Breathing tx given in ED at 1515 so QID tx will begin at 2000 instead of 1600 CHolmes BOTANICAL TECHNICAL OFFICER
[2020-12-08] MEDS: IPRATRPIUM/ALBUTEROL 0.5/2.5MG 3 ML NEBU. NEB SCH ×2 (16:00→20:00)
[2020-12-08] MEDS ORDERED: AMIODARONE 150 MG in IV DEXTROSE 5% 100ML 100 ML IV ONE (16:00)
[2020-12-08 16:29] LABS: ALBUMIN 2.4 g/dL (3.4-5.0); ALBUMIN/GLOBULIN RATIO 0.7 (1.0-1.7); CALCIUM 8.8 mg/dL (8.5-10.1); CREATININE 1.4 mg/dL (0.7-1.3); GFR 50.4; TOTAL BILIRUBIN 1.3 mg/dL (0.2-1.0); TOTAL PROTEIN 5.8 g/dL (6.4-8.2)
[2020-12-08] MEDS ORDERED: MAGNESIUM SULFATE 1GM 100 ML IV ONE (16:30)
[2020-12-08 16:31] LABS: POTASSIUM 2.7 mmol/L (3.5-5.1)
[2020-12-08] MEDS: IV NORMAL SALINE 1000ML BAG 1,000 ML IV SCH (16:31)
[2020-12-08 16:32] LABS: % BANDS 18 % (0-9); % LYMPHS 1 % (24-48); % MONOS 2 % (0-10); % SEGS 79 % (35-66)
[2020-12-08 16:33] LABS: PLT ESTIMATE ADEQUATE (ADEQUATE)
[2020-12-08] MEDS: AMIODARONE 450 MG in IV DEXTROSE 5% 250 ML IV PRN (16:41)
[2020-12-08] MEDS ORDERED: POTASSIUM CHLORIDE 20 MEQ TABLET.ER. PO ONE (16:45)
[2020-12-08] MEDS: POTASSIUM CHLORIDE 20MEQ 100 ML IV SCH ×2 (16:53→18:55)
--- NOTE | 2020-12-08 18:07 | PDOC2 ---
CONSULT Date of Consult Date of Consult DATE: 12/08/20 TIME: 18:01 Reason for Consult Reason for Consult: Ventricular tachycardia Referring Physician Referring Physician: Dr. Mccarthy Identification/Chief Complaint Chief Complaint Weakness and shortness of breath Source Source: Chart review, Patient History of Present Illness Reason for Visit: The patient is a 70-year-old male who was admitted through the emergency room for 1 week of increasing weakness. He also has been having increasing shortness of breath of the past 3 to 4 days and a temperature of 103 degrees. His chest x-ray showed right upper lobe consolidation consistent with probable pneumonia. Initial significant lab included a potassium of 2.7 magnesium of 1.6 BNP of 6687 and a troponin of 0.135. During his examination in the emergency room the patient had episodes of nonsustained ventricular tachycardia not requiring cardioversion. He has a history of hypertension, COPD, hyperlipidemia and possible atrial fibrillation. His episodes spontaneously resolved. He has been started on amiodarone. He is being repeat aggressively replace with potassium as also received magnesium. Past Medical History Cardiovascular: CAD, HTN, Hyperlipidemia Pulmonary: COPD Psych: Anxiety, Depression Musculoskeletal: Osteoarthritis Renal/: Benign prostatic enlarg. Past Surgical History Past Surgical History: Hernia Repair, Total hip replacement, Other Family History Family History: Heart Disease Social History 1 pack per day ALCOHOL: occassional Drugs: None Lives: Roommate Current Problem List Problem List Problems Medical Problems: (1) Elevated troponin Status: Acute (2) Hypokalemia Status: Acute (3) Hypomagnesemia Status: Acute (4) Person under investigation for COVID-19 Status: Acute (5) Pneumonia Status: Acute (6) SIRS (systemic inflammatory response syndrome) Status: Acute (7) Ventricular tachycardia Status: Acute Current Medications Current Medications Current Medications Methylprednisolone Sodium Succinate (SOLU-Medrol 125MG VIAL) 125 mg 1X ONCE IV Last administered on 12/08/20at 15:03; Start 12/08/20 at 14:30; Stop 12/08/20 at 14:34; Status DC Albuterol Sulfate (Ventolin Neb Soln) 2.5 mg 1X ONCE NEB Last administered on 12/08/20at 15:15; Start 12/08/20 at 14:30; Stop 12/08/20 at 14:34; Status DC Acetaminophen (Tylenol) 1,000 mg 1X ONCE PO Last administered on 12/08/20at 15:02; Start 12/08/20 at 14:30; Stop 12/08/20 at 14:34; Status DC Piperacillin Sod/ Tazobactam Sod 3.375 gm/Sodium Chloride 50 ml @ 100 mls/hr 1X ONCE IV Last administered on 12/08/20at 15:03; Start 12/08/20 at 14:45; Stop 12/08/20 at 15:14; Status DC Sodium Chloride 1,000 ml @ 1,000 mls/hr 1X ONCE IV Last administered on 12/08/20at 15:02; Start 12/08/20 at 14:45; Stop 12/08/20 at 15:44; Status DC Sodium Chloride 1,000 ml @ 125 mls/hr Q8H IV Last administered on 12/08/20at 16:31; Start 12/08/20 at 15:15; Stop 12/09/20 at 15:14 Acetaminophen (Tylenol) 650 mg PRN Q4HRS PRN PO FEVER > 100.3'F; Start 12/08/20 at 15:15; Stop 12/09/20 at 15:14 Albuterol/ Ipratropium (Duoneb) 3 ml RTQID NEB ; Start 12/08/20 at 16:00; Stop 12/09/20 at 15:59 Amiodarone HCl 150 mg/Dextrose 103 ml @ 618 mls/hr 1X ONCE IV Last administered on 12/08/20at 16:12; Start 12/08/20 at 16:00; Stop 12/08/20 at 16:09; Status DC Piperacillin Sod/ Tazobactam Sod 3.375 gm/Sodium Chloride 50 ml @ 100 mls/hr Q6HRS IV ; Start 12/08/20 at 22:00 Amiodarone HCl 450 mg/Dextrose 259 ml @ 34.533 mls/ hr CONT PRN IV SEE I/O RECORD Last administered on 12/08/20at 16:41; Start 12/08/20 at 16:30 Magnesium Sulfate/ Dextrose 100 ml @ 100 mls/hr 1X ONCE IV Last administered on 12/08/20at 16:49; Start 12/08/20 at 16:30; Stop 12/08/20 at 17:29; Status DC Potassium Chloride (Klor-Con) 40 meq 1X ONCE PO Last administered on 12/08/20at 16:49; Start 12/08/20 at 16:45; Stop 12/08/20 at 16:46; Status DC Potassium Chloride/Water 100 ml @ 100 mls/hr Q1H IV Last administered on 12/08/20at 16:53; Start 12/08/20 at 17:00; Stop 12/08/20 at 18:59 Active Scripts Active Metoprolol Tartrate 25 Mg Tablet 12.5 Mg PO BID 30 Days Reported Vitamin B12 (Cyanocobalamin (Vitamin B-12)) 5,000 Mcg Tab.rapdis 1,000 Mcg PO DAILY Aspirin 325 Mg Tablet 325 Mg PO DAILY PRN 90 Days Doxazosin Mesylate 4 Mg Tablet 1 Tab PO HS Finasteride 5 Mg Tablet 1 Tab PO DAILY Alprazolam 0.5 Mg Tablet 1 Tab PO TID Viagra (Sildenafil Citrate) 50 Mg Tablet 1 Tab PO UD Pravastatin Sodium 40 Mg Tablet 1 Tab PO DAILY Allergies Allergies: Coded Allergies: No Known Drug Allergies (Unverified , 02/10/14) ROS General: YES: Fatigue, Malaise Respiratory: YES: Shortness of breath, SOB with excertion Physical Exam General: mild distress HEENT: Atraumatic Lungs: Other (Decreased breath sounds) Heart: Regular rate Abdomen: Normal bowel sounds Vitals VITALS Vital Signs Date Time Temp Pulse Resp B/P (MAP) Pulse Ox O2 Delivery O2 Flow Rate FiO2 12/08/20 17:05 88 23 147/76 (99) Nasal Cannula 2.0 12/08/20 16:35 96 12/08/20 14:14 103.0 103.0 Labs Labs Laboratory Tests Test 12/08/20 14:35 12/08/20 14:48 12/08/20 14:55 12/08/20 15:58 SARS-CoV-2 Antigen (Rapid) Negative (NEGATIVE) White Blood Count 10.5 x10^3/uL (4.0-11.0) Red Blood Count 4.56 x10^6/uL (4.30-5.70) Hemoglobin 14.3 g/dL (13.0-17.5) Hematocrit 41.0 % (39.0-53.0) Mean Corpuscular Volume 90 fL (79-100) Mean Corpuscular Hemoglobin 31 pg (25-35) Mean Corpuscular Hemoglobin Concent 35 g/dL (31-37) Red Cell Distribution Width 13.1 % (11.5-14.5) Platelet Count 126 x10^3/uL (140-400) Neutrophils (%) (Auto) 94 % (31-73) Lymphocytes (%) (Auto) 1 % (24-48) Monocytes (%) (Auto) 4 % (0-9) Eosinophils (%) (Auto) 0 % (0-3) Basophils (%) (Auto) 0 % (0-3) Neutrophils # (Auto) 9.9 x10^3/uL (1.8-7.7) Lymphocytes # (Auto) 0.1 x10^3/uL (1.0-4.8) Monocytes # (Auto) 0.4 x10^3/uL (0.0-1.1) Eosinophils # (Auto) 0.0 x10^3/uL (0.0-0.7) Basophils # (Auto) 0.0 x10^3/uL (0.0-0.2) Segmented Neutrophils % 79 % (35-66) Band Neutrophils % 18 % (0-9) Lymphocytes % 1 % (24-48) Monocytes % 2 % (0-10) Dohle Bodies Present Platelet Estimate Adequate (ADEQUATE) Lactic Acid Level 2.2 mmol/L (0.4-2.0) O2 Saturation 95 % (92-99) Arterial Blood pH 7.58 (7.35-7.45) Arterial Blood pCO2 at Patient Temp 21 mmHg (35-46) Arterial Blood pO2 at Patient Temp 63 mmHg (65-108) Arterial Blood HCO3 20 mmol/L (21-28) Arterial Blood Base Excess 0 mmol/L (-3-3) Oxyhemoglobin 93.9 % Methemoglobin 0.5 % (0.0-1.9) Carbon Monoxide, Quantitative 0.1 % (0.0-1.9) FiO2 21 Sodium Level 137 mmol/L (136-145) Potassium Level 2.7 mmol/L (3.5-5.1) Chloride Level 103 mmol/L (98-107) Carbon Dioxide Level 21 mmol/L (21-32) Anion Gap 13 (6-14) Blood Urea Nitrogen 18 mg/dL (8-26) Creatinine 1.4 mg/dL (0.7-1.3) Estimated GFR (Cockcroft-Gault) 50.4 BUN/Creatinine Ratio 13 (6-20) Glucose Level 127 mg/dL (70-99) Calcium Level 8.8 mg/dL (8.5-10.1) Magnesium Level 1.6 mg/dL (1.8-2.4) Total Bilirubin 1.3 mg/dL (0.2-1.0) Aspartate Amino Transf (AST/SGOT) 15 U/L (15-37) Alanine Aminotransferase (ALT/SGPT) 15 U/L (16-63) Alkaline Phosphatase 64 U/L (46-116) Troponin I Quantitative 0.135 ng/mL (0.000-0.055) WE-Sjk-S-Type Natriuretic Peptide 6687 pg/mL (0-124) Total Protein 5.8 g/dL (6.4-8.2) Albumin 2.4 g/dL (3.4-5.0) Albumin/Globulin Ratio 0.7 (1.0-1.7) Laboratory Tests Test 12/08/20 14:35 12/08/20 14:48 12/08/20 14:55 12/08/20 15:58 SARS-CoV-2 Antigen (Rapid) Negative (NEGATIVE) White Blood Count 10.5 x10^3/uL (4.0-11.0) Red Blood Count 4.56 x10^6/uL (4.30-5.70) Hemoglobin 14.3 g/dL (13.0-17.5) Hematocrit 41.0 % (39.0-53.0) Mean Corpuscular Volume 90 fL (79-100) Mean Corpuscular Hemoglobin 31 pg (25-35) Mean Corpuscular Hemoglobin Concent 35 g/dL (31-37) Red Cell Distribution Width 13.1 % (11.5-14.5) Platelet Count 126 x10^3/uL (140-400) Neutrophils (%) (Auto) 94 % (31-73) Lymphocytes (%) (Auto) 1 % (24-48) Monocytes (%) (Auto) 4 % (0-9) Eosinophils (%) (Auto) 0 % (0-3) Basophils (%) (Auto) 0 % (0-3) Neutrophils # (Auto) 9.9 x10^3/uL (1.8-7.7) Lymphocytes # (Auto) 0.1 x10^3/uL (1.0-4.8) Monocytes # (Auto) 0.4 x10^3/uL (0.0-1.1) Eosinophils # (Auto) 0.0 x10^3/uL (0.0-0.7) Basophils # (Auto) 0.0 x10^3/uL (0.0-0.2) Segmented Neutrophils % 79 % (35-66) Band Neutrophils % 18 % (0-9) Lymphocytes % 1 % (24-48) Monocytes % 2 % (0-10) Dohle Bodies Present Platelet Estimate Adequate (ADEQUATE) Lactic Acid Level 2.2 mmol/L (0.4-2.0) O2 Saturation 95 % (92-99) Arterial Blood pH 7.58 (7.35-7.45) Arterial Blood pCO2 at Patient Temp 21 mmHg (35-46) Arterial Blood pO2 at Patient Temp 63 mmHg (65-108) Arterial Blood HCO3 20 mmol/L (21-28) Arterial Blood Base Excess 0 mmol/L (-3-3) Oxyhemoglobin 93.9 % Methemoglobin 0.5 % (0.0-1.9) Carbon Monoxide, Quantitative 0.1 % (0.0-1.9) FiO2 21 Sodium Level 137 mmol/L (136-145) Potassium Level 2.7 mmol/L (3.5-5.1) Chloride Level 103 mmol/L (98-107) Carbon Dioxide Level 21 mmol/L (21-32) Anion Gap 13 (6-14) Blood Urea Nitrogen 18 mg/dL (8-26) Creatinine 1.4 mg/dL (0.7-1.3) Estimated GFR (Cockcroft-Gault) 50.4 BUN/Creatinine Ratio 13 (6-20) Glucose Level 127 mg/dL (70-99) Calcium Level 8.8 mg/dL (8.5-10.1) Magnesium Level 1.6 mg/dL (1.8-2.4) Total Bilirubin 1.3 mg/dL (0.2-1.0) Aspartate Amino Transf (AST/SGOT) 15 U/L (15-37) Alanine Aminotransferase (ALT/SGPT) 15 U/L (16-63) Alkaline Phosphatase 64 U/L (46-116) Troponin I Quantitative 0.135 ng/mL (0.000-0.055) TT-Ocz-P-Type Natriuretic Peptide 6687 pg/mL (0-124) Total Protein 5.8 g/dL (6.4-8.2) Albumin 2.4 g/dL (3.4-5.0) Albumin/Globulin Ratio 0.7 (1.0-1.7) Images Images Chest x-ray with right upper lobe consolidation. Assessment/Plan Assessment/Plan 1. Pneumonia. Patient has been E afebrile with increasing shortness of breath and an abnormal chest x-ray. He has been started on pulmonary treatments and antibiotics. 2. Positive Covid infection. Covid protocols have been followed. Covid testing is pending. 3. Nonsustained ventricular tachycardia. Episodes have spontaneously terminated. The patient is being placed on IV amiodarone protocol. Potassium is being aggressively replaced as well as magnesium. We will need to check an echo when protocols allow. 4. Hypokalemia and hypomagnesemia. Replacement as above. 5. Contribution of heart failure. BNP significantly elevated at 6687. Troponin minimally elevated 0.135. Will trend troponin. We will check an echo as per protocol as above. JUJU SPIVEY MD Dec 08, 2020 18:07
[2020-12-08] MEDS: PIPERACILLIN/TAZOBACTAM 3.375 GM in IV NORMAL SALINE 50ML 50 ML IV SCH (22:22)
[2020-12-09] MEDS: IV NORMAL SALINE 1000ML BAG 1,000 ML IV SCH ×2 (00:56→13:40)
[2020-12-09] MEDS: AMIODARONE 450 MG in IV DEXTROSE 5% 250 ML IV PRN (01:41)
[2020-12-09 05:00] LABS: BILIRUBIN,URINE NEGATIVE (NEG); CLARITY,URINE CLEAR; COLOR,URINE AMBER; NITRITE,URINE NEGATIVE (NEG); PH,URINE 5.5 (<5.0-8.0); PROTEIN,URINE 30 mg/dL (NEG-TRACE); UROBILINOGEN,URINE 0.2 mg/dL (0.2 mg/dL)
[2020-12-09 05:01] LABS: BACTERIA,URINE 0 /HPF (0-FEW); HYALINE CASTS, URINE MODERATE /HPF; RBC,URINE 0 /HPF (0-2)
[2020-12-09] MEDS: PIPERACILLIN/TAZOBACTAM 3.375 GM in IV NORMAL SALINE 50ML 50 ML IV SCH ×4 (06:07→23:38)
[2020-12-09 06:18] LABS: CALCIUM 8.4 mg/dL (8.5-10.1); CHOLESTEROL/HDL RATIO 5.2; CREATININE 1.2 mg/dL (0.7-1.3); GFR 60.2; POTASSIUM 3.8 mmol/L (3.5-5.1)
[2020-12-09 06:19] LABS: BASO % 0 % (0-3); EOS % 0 % (0-3); HEMATOCRIT 35.3 % (39.0-53.0); HEMOGLOBIN 12.1 g/dL (13.0-17.5); LYMPH # 0.1 x10^3/uL (1.0-4.8); LYMPH % 1 % (24-48); MEAN CORPUSCULAR HEMOGLOBIN 31 pg (25-35); MEAN CORPUSCULAR HGB CONC 34 g/dL (31-37); MEAN CORPUSCULAR VOLUME 92 fL (79-100); MONO # 0.3 x10^3/uL (0.0-1.1); MONO % 3 % (0-9); NEUT # 11.6 x10^3/uL (1.8-7.7); NEUT % 97 % (31-73); PLATELET COUNT 119 x10^3/uL (140-400); RED BLOOD COUNT 3.86 x10^6/uL (4.30-5.70); RED CELL DISTRIBUTION WIDTH 13.1 % (11.5-14.5)
[2020-12-09] MEDS: IPRATRPIUM/ALBUTEROL 0.5/2.5MG 3 ML NEBU. NEB SCH ×2 (07:14→12:00)
--- NOTE | 2020-12-09 09:44 | CONS ---
DATE OF CONSULTATION: 12/09/2020 PULMONARY CONSULTATION ATTENDING PHYSICIAN: Olaf Mccarthy MD REASON FOR CONSULTATION: Respiratory failure. HISTORY OF PRESENT ILLNESS: The patient is a 70-year-old male who has at least 50 years of tobacco use. He is not on home oxygen. He was brought into the hospital with increasing shortness of breath. He has a fever of 103. He also has a cough. While in the emergency room, he had an episode of nonsustained ventricular tachycardia, which did not require cardioversion. Cardiology saw the patient. The patient's episode spontaneously resolved. He was started on amiodarone. I saw the patient in the ER. He did not receive COVID vaccine. His rapid COVID test was negative. However, there is a strong clinical suspicion for COVID infection. His chest x-ray showed interstitial infiltrate in the right upper lobe. Consultation requested for further evaluation and management. PAST MEDICAL HISTORY: Significant for CAD, hypertension, hyperlipidemia, COPD, could be severe, osteoarthritis and BPH. PAST SURGICAL HISTORY: Hernia repair, total hip replacement. FAMILY HISTORY: Heart disease. SOCIAL HISTORY: One pack per day for 50 years. REVIEW OF SYSTEMS: A 12-point system obtained. Pertinent positives discussed in my presence illness, otherwise noncontributory. All systems that were negative were reviewed as well. No chest pain. No nausea, vomiting, no diarrhea. No focal weakness. No dysuria. No leg edema. MEDICATIONS: Given in the ER were reviewed including Zosyn and DuoNebs. SOCIAL HISTORY: Smoker for 50 years. Has not quit. PHYSICAL EXAMINATION: VITAL SIGNS: T-max 103, blood pressure 162/82, pulse ox 100% on 3 liters. GENERAL: Visual exam done due to COVID suspicion. No obvious respiratory distress. EXTREMITIES: No leg edema, no skin rash. LABORATORY DATA: Reviewed. White cell count 12.0, hemoglobin 12.1 and platelets are 119. ABGs with a pH of 7.58, pCO2 of 21, a pO2 of 63, bicarbonate 20 on room air. IMPRESSION: 1. Acute hypoxic respiratory failure in a patient who presents with fever of 103 and had interstitial infiltrates in the right upper lobe. Clinical suspicion for COVID-19 pneumonia was high. Rapid test is negative, but we will await for PCR. Other differential diagnosis would be Gram-negative pneumonia. 2. Underlying suspected severe chronic obstructive pulmonary disease from 50 years of tobacco use. 3. Abnormal chest x-ray with right upper lobe interstitial infiltrates. 4. Nonsustained ventricular tachycardia in the emergency room, did not require cardioversion. RECOMMENDATIONS: 1. Continue present oxygen. Keep saturation 92 and above. 2. Empiric antibiotic. 3. PCR for COVID. 4. Bronchodilators. 5. If COVID positive, then we will add dexamethasone as well as remdesivir. 6. Amiodarone per cardiology. 7. Discussed with ER physician. Chart reviewed, imaging studies reviewed. Critical care time 30 minutes. LEE ANN/RA/KYLIE DR: LEE ANN/donnell TID: [id number]
--- NOTE | 2020-12-09 10:36 | PDOC ---
Provider Note Date of Service: DATE: 12/09/20 TIME: 10:36 Provider Note dictated Justifications for Admission Other Justification GARCÍA RICKS MD Dec 09, 2020 10:36
[2020-12-09] MEDS ORDERED: ASPIRIN 325 MG TABLET PO PRN (10:45)
--- NOTE | 2020-12-09 12:20 | CONS ---
DATE OF CONSULTATION: 12/09/2020 REFERRING PHYSICIAN: Olaf Mccarthy MD REASON FOR CONSULTATION: Pneumonia, antibiotic management. HISTORY OF PRESENT ILLNESS: A 70-year-old male with history of COPD, not on home oxygen; history of prostate cancer, who was brought into the hospital with worsening shortness of breath, fever and a dry cough. The patient also had some diarrhea. In the ED, his temperature was 103. He had episodes of nonsustained V-tach, which spontaneously resolved. He is currently on amiodarone. I saw the patient in the ER, he had Rapid COVID test negative. He also had a PCR, which was negative. He has not received any COVID vaccine. He denies any sick contact. He lives alone at home. Chest x-ray revealed interstitial infiltrate in the right upper lobe. He is currently on Zosyn. White count was 10. Repeat was 12. He had lactic acidosis. ID consultation has been requested for further evaluation and treatment. Today, the patient feels a little better. Fever pattern has improved. He had a few runs of nonsustained V-tach, but did not require any cardioversion. He has history of pain in the right lower extremity for the last 2 weeks. He states he has been told that he has peripheral arterial disease. PAST MEDICAL HISTORY: COPD, peripheral arterial disease, prostate cancer, hypertension, hyperlipidemia, coronary artery disease, BPH, osteoarthritis. PAST SURGICAL HISTORY: Hernia repair, total hip replacement. FAMILY HISTORY: As per HPI. SOCIAL HISTORY: Smokes 4-5 cigarettes a day for 50 years. Alcohol social, lives alone. REVIEW OF SYSTEMS: Negative except for above in HPI. PHYSICAL EXAMINATION: VITAL SIGNS: Temperature 99, T-max 103, pulse 111, respiratory rate 28, blood pressure 162/82, oxygen saturation 100% on 3 liters O2 by nasal cannula. GENERAL: Alert, oriented x 3 male in no acute distress. HEENT: Normocephalic, atraumatic. Anicteric. No thrush. Oral mucosa moist. NECK: Supple, no JVD. LUNGS: Coarse breath sounds. HEART: S1, S2 irregular. ABDOMEN: Soft, nontender, nondistended. EXTREMITIES: Right lower extremity swelling, a little bit more than the left. No cyanosis. DERMATOLOGIC: Warm, dry, no generalized rash. NEUROLOGIC: Alert and oriented x 3, grossly nonfocal. PSYCHIATRIC: Calm and cooperative. LABORATORY DATA: WBC 12, hemoglobin 12.1, platelets 119. Sodium 139, potassium 3.8, chloride 107, bicarbonate 21, BUN 21, creatinine 1.2, glucose 165. Lactate was 2.2. Troponin was 0.135. UA was negative. COVID negative. MICROBIOLOGY: None. IMAGING: Chest x-ray, right upper lobe consolidation concerning for pneumonia. IMPRESSION: 1. Fever, source respiratory. 2. Acute hypoxic respiratory failure with underlying chronic obstructive pulmonary disease. 3. History of chronic obstructive pulmonary disease. 4. History of tobaccoism. 5. Leukocytosis and lactic acidosis. 6. Nonsustained ventricular tachycardia. 7. History of prostate cancer. RECOMMENDATIONS: 1. Continue Zosyn. 2. Start doxycycline. 3. Follow up labs and cultures. 4. Continue supportive care. 5. Discussed with nursing staff. The patient seen in ED. Thank you for allowing me to participate in this patient's care. If you have any questions, do not hesitate to contact me. CCT 35 minutes Discussed with ED RN MIRELLA/NAM DR: Hany TID: [id number] TONY
--- NOTE | 2020-12-09 12:29 | HP ---
ADMIT DATE: 12/09/2020 CHIEF COMPLAINT: Cough, fever, or pneumonia. HISTORY OF PRESENT ILLNESS: A 70-year-old white male patient of Dr. Mccarthy's came in with a few days of cough, fever and malaise. He has had scant sputum production and denies overt chills, hemoptysis or chest pain. He has not had a COVID vaccine and COVID test is pending. It is noted on chest x-ray, though he is not requiring oxygen supplementation at this time with good sats on room air. He was noted to have ____ arrhythmias, was felt to be ventricular tachycardia, irregularly at times and was placed on IV amiodarone drip per Dr. Huynh after seen in consultation. He also received some magnesium sulfate for borderline low magnesium level. He is in a COVID room now and stable at this point, pending results of the PCR as the initial COVID test was negative. PAST HISTORY: Home medications are listed. He takes a statin, prostate medicine and alprazolam. He has had some atrial fibrillation problems in the past, but no current medicines except for metoprolol on his home list and no anticoagulants. SOCIAL HISTORY: Do not know if he smokes or not or if he is or if he is a drinker. FAMILY HISTORY: Unremarkable. REVIEW OF SYSTEMS: No other specific complaints. OBJECTIVE: ENT: All within normal limits. NECK: No masses, nodes or thyroid enlargement. LUNGS: Decreased breath sounds, rhonchi in the upper chest bilaterally. CARDIOVASCULAR: Regular rate with frequent premature atrial complexes. LV tachycardia seen at this time. ABDOMEN: Soft, benign and nontender. EXTREMITIES: Good pedal and radial pulses. No edema. No joint or skin lesions. NEUROLOGIC: Physiologic, nonfocal. ASSESSMENT: Community-acquired pneumonia, right upper lobe with COVID results pending. At least moderately suspicious for COVID as he is not vaccinated to my knowledge. He also has ventricular tachycardia, idiopathic at this time with a history of atrial fibrillation in the past and mild hypertension. PLAN: We will continue Zosyn as started and hold IV Decadron for now as he is not hypoxic. IV amiodarone continues and the home meds addressed. Dr. Mccarthy will resume care tomorrow. MATHIEU/HERMINIO/ANIKA GRACIA: MATHIEU/donnell TID: [id number]
[2020-12-09] MEDS: FINASTERIDE 5 MG TABLET. PO SCH (13:37)
[2020-12-09] MEDS: DOXYCYCLINE HYCLATE 100 MG TABLET PO SCH ×2 (13:39→20:42)
[2020-12-09] MEDS: METOPROLOL TART IMMED RELEASE 25 MG TABLET. PO SCH ×2 (13:39→20:42)
[2020-12-09] MEDS: ALPRAZolam 0.5 MG TABLET PO SCH ×2 (13:51→20:42)
[2020-12-09] MEDS: IPRATROPIUM/ALBUTEROL 20/100mcg/INH INHALER. INH SCH (13:51)
[2020-12-09 14:50] VITALS: BP 168/92
--- NOTE | 2020-12-09 14:53 | RAD ---
Right lower extremity venous Doppler ultrasound History: Reason: RLE SWELLING, S/P RT HIP REPLACEMENT / Comparison: None. Procedure: Color flow Doppler, Doppler spectral analysis, and 2D images are obtained with and without compression in the area of the common femoral vein, superficial femoral vein - femoral vein junction , main femoral vein (superficial femoral vein) and popliteal vein. Veins of the proximal calf are als o imaged. Findings: There is normal color flow, augmentation, and compressibility of all visualized vein segments. No caridad dence of deep venous thrombus is present. IMPRESSION: No evidence of right lower extremity deep venous thrombosis. Electronically signed by: Petr León MD (12/09/2020 2:51 PM) [id number]
[2020-12-09] MEDS ORDERED: AMIODARONE 450 MG in IV DEXTROSE 5% 250 ML IV PRN (16:00)
[2020-12-09 16:02] VITALS: BP 174/97
[2020-12-09 19:45] VITALS: BP 144/104
[2020-12-09] MEDS ORDERED: DIGOXIN IV 500 MCG/2 ML AMPUL. IV ONE ×2 (20:30→22:30)
[2020-12-09] MEDS ORDERED: FUROSEMIDE 40 MG/4 ML VIAL. IVP ONE (20:30)
[2020-12-09] MEDS: LACTOBACILLUS RHAMNOSUS GG 1 CAPSULE. PO SCH (20:42)
[2020-12-09] MEDS: DOXAZOSIN MESYLATE 4 MG TABLET. PO SCH (21:00)
--- NOTE | 2020-12-09 21:02 | EKG ---
[facility] [address] [place] [address] Test Date: 2020-12-09 Test Time: 20:43:28 Pat Name: DEBBIE RICO Department: Room: 256 1 Gender: M Dope Heater: VALENTIN : 1950 Requested By: JUJU SPIVEY Order Number: [id number] Reading MD: Measurements Intervals [place] Rate: 163 P: TN: QRS: 20 QRSD: 82 T: -74 QT: 308 QTc: 513 Interpretive Statements IRREGULAR RHYTHM, NO P-WAVE FOUND ST & T ABNORMALITY, CONSIDER INFERIOR ISCHEMIA OR LEFT VENTRICULAR STRAIN ABNORMAL ECG RI6.02 Compared to ECG 12/08/2020 15:57:27 T-wave abnormality now present Possible ischemia now present Left-axis deviation no longer present Myocardial infarct finding no longer present
--- NOTE | 2020-12-09 21:03 | PDOC ---
PROGRESS NOTES Date of Service DATE: 12/09/20 TIME: 20:59 Subjective Subjective Patient seen and examined Objective Objective Vital Signs Date Time Temp Pulse Resp B/P (MAP) Pulse Ox O2 Delivery O2 Flow Rate FiO2 12/09/20 20:42 111 174/97 12/09/20 19:45 102.0 24 95 Nasal Cannula 2.0 102.0 Intake and Output 12/09/20 06:59 Intake Total 2353 ml Balance 2353 ml IV Total 2353 ml Physical Exam Abdomen: Normal bowel sounds Heart: Regular rate General: mild distress Lungs: Other (mildly decreased breath sounds) Assessment Assessment Problems Medical Problems: (1) Elevated troponin Status: Acute (2) Hypokalemia Status: Acute (3) Hypomagnesemia Status: Acute (4) Person under investigation for COVID-19 Status: Acute (5) Pneumonia Status: Acute (6) SIRS (systemic inflammatory response syndrome) Status: Acute (7) Ventricular tachycardia Status: Acute 1. Pneumonia. The patient is feeling better today. Continue present treatment. Repeat Covid test pending. 2. NSVT. Resolved on amio. K and Mg replaced. Continue present treatment. ECHO as per Covid guidelines. 3. Heart failure. Also improved. Continue treatment. ECHO as above. Comment Review of Relevant I have reviewed the following items lesly (where applicable) has been applied. Labs Laboratory Tests Test 12/08/20 14:35 12/08/20 14:48 12/08/20 14:55 12/08/20 15:58 SARS-CoV-2 RNA (KATIE) Negative (Negative) SARS-CoV-2 Antigen (Rapid) Negative (NEGATIVE) White Blood Count 10.5 x10^3/uL (4.0-11.0) Red Blood Count 4.56 x10^6/uL (4.30-5.70) Hemoglobin 14.3 g/dL (13.0-17.5) Hematocrit 41.0 % (39.0-53.0) Mean Corpuscular Volume 90 fL (79-100) Mean Corpuscular Hemoglobin 31 pg (25-35) Mean Corpuscular Hemoglobin Concent 35 g/dL (31-37) Red Cell Distribution Width 13.1 % (11.5-14.5) Platelet Count 126 x10^3/uL (140-400) Neutrophils (%) (Auto) 94 % (31-73) Lymphocytes (%) (Auto) 1 % (24-48) Monocytes (%) (Auto) 4 % (0-9) Eosinophils (%) (Auto) 0 % (0-3) Basophils (%) (Auto) 0 % (0-3) Neutrophils # (Auto) 9.9 x10^3/uL (1.8-7.7) Lymphocytes # (Auto) 0.1 x10^3/uL (1.0-4.8) Monocytes # (Auto) 0.4 x10^3/uL (0.0-1.1) Eosinophils # (Auto) 0.0 x10^3/uL (0.0-0.7) Basophils # (Auto) 0.0 x10^3/uL (0.0-0.2) Segmented Neutrophils % 79 % (35-66) Band Neutrophils % 18 % (0-9) Lymphocytes % 1 % (24-48) Monocytes % 2 % (0-10) Dohle Bodies Present Platelet Estimate Adequate (ADEQUATE) Lactic Acid Level 2.2 mmol/L (0.4-2.0) O2 Saturation 95 % (92-99) Arterial Blood pH 7.58 (7.35-7.45) Arterial Blood pCO2 at Patient Temp 21 mmHg (35-46) Arterial Blood pO2 at Patient Temp 63 mmHg (65-108) Arterial Blood HCO3 20 mmol/L (21-28) Arterial Blood Base Excess 0 mmol/L (-3-3) Oxyhemoglobin 93.9 % Methemoglobin 0.5 % (0.0-1.9) Carbon Monoxide, Quantitative 0.1 % (0.0-1.9) FiO2 21 Sodium Level 137 mmol/L (136-145) Potassium Level 2.7 mmol/L (3.5-5.1) Chloride Level 103 mmol/L (98-107) Carbon Dioxide Level 21 mmol/L (21-32) Anion Gap 13 (6-14) Blood Urea Nitrogen 18 mg/dL (8-26) Creatinine 1.4 mg/dL (0.7-1.3) Estimated GFR (Cockcroft-Gault) 50.4 BUN/Creatinine Ratio 13 (6-20) Glucose Level 127 mg/dL (70-99) Calcium Level 8.8 mg/dL (8.5-10.1) Magnesium Level 1.6 mg/dL (1.8-2.4) Total Bilirubin 1.3 mg/dL (0.2-1.0) Aspartate Amino Transf (AST/SGOT) 15 U/L (15-37) Alanine Aminotransferase (ALT/SGPT) 15 U/L (16-63) Alkaline Phosphatase 64 U/L (46-116) Troponin I Quantitative 0.135 ng/mL (0.000-0.055) [place]-J-Type Natriuretic Peptide 6687 pg/mL (0-124) Total Protein 5.8 g/dL (6.4-8.2) Albumin 2.4 g/dL (3.4-5.0) Albumin/Globulin Ratio 0.7 (1.0-1.7) Test 12/08/20 19:25 12/09/20 04:47 12/09/20 05:50 Lactic Acid Level 2.2 mmol/L (0.4-2.0) Urine Collection Type Unknown Urine Color Antonella Urine Clarity Clear Urine pH 5.5 (<5.0-8.0) Urine Specific [place] 1.025 (1.000-1.030) Urine Protein 30 mg/dL (NEG-TRACE) Urine Glucose (UA) 100 mg/dL (NEG) Urine Ketones (Stick) Negative mg/dL (NEG) Urine Blood Negative (NEG) Urine Nitrite Negative (NEG) Urine Bilirubin Negative (NEG) Urine Urobilinogen Dipstick 0.2 mg/dL (0.2 mg/dL) Urine Leukocyte Esterase Negative (NEG) Urine RBC 0 /HPF (0-2) Urine WBC 1-4 /HPF (0-4) Urine Squamous Epithelial Cells Few /LPF Urine Bacteria 0 /HPF (0-FEW) Urine Hyaline Casts Moderate /HPF Urine Mucus Mod /LPF White Blood Count 12.0 x10^3/uL (4.0-11.0) Red Blood Count 3.86 x10^6/uL (4.30-5.70) Hemoglobin 12.1 g/dL (13.0-17.5) Hematocrit 35.3 % (39.0-53.0) Mean Corpuscular Volume 92 fL (79-100) Mean Corpuscular Hemoglobin 31 pg (25-35) Mean Corpuscular Hemoglobin Concent 34 g/dL (31-37) Red Cell Distribution Width 13.1 % (11.5-14.5) Platelet Count 119 x10^3/uL (140-400) Neutrophils (%) (Auto) 97 % (31-73) Lymphocytes (%) (Auto) 1 % (24-48) Monocytes (%) (Auto) 3 % (0-9) Eosinophils (%) (Auto) 0 % (0-3) Basophils (%) (Auto) 0 % (0-3) Neutrophils # (Auto) 11.6 x10^3/uL (1.8-7.7) Lymphocytes # (Auto) 0.1 x10^3/uL (1.0-4.8) Monocytes # (Auto) 0.3 x10^3/uL (0.0-1.1) Eosinophils # (Auto) 0.0 x10^3/uL (0.0-0.7) Basophils # (Auto) 0.0 x10^3/uL (0.0-0.2) Sodium Level 139 mmol/L (136-145) Potassium Level 3.8 mmol/L (3.5-5.1) Chloride Level 107 mmol/L (98-107) Carbon Dioxide Level 21 mmol/L (21-32) Anion Gap 11 (6-14) Blood Urea Nitrogen 21 mg/dL (8-26) Creatinine 1.2 mg/dL (0.7-1.3) Estimated GFR (Cockcroft-Gault) 60.2 Glucose Level 165 mg/dL (70-99) Calcium Level 8.4 mg/dL (8.5-10.1) Magnesium Level 2.0 mg/dL (1.8-2.4) Troponin I Quantitative 0.035 ng/mL (0.000-0.055) Triglycerides Level 100 mg/dL (0-150) Cholesterol Level 120 mg/dL (0-200) LDL Cholesterol, Calculated 77 mg/dL (0-100) VLDL Cholesterol, Calculated 20 mg/dL (0-40) Non-HDL Cholesterol Calculated 97 mg/dL (0-129) HDL Cholesterol 23 mg/dL (40-60) Cholesterol/HDL Ratio 5.2 Laboratory Tests Test 12/09/20 04:47 12/09/20 05:50 Urine Collection Type Unknown Urine Color Antonella Urine Clarity Clear Urine pH 5.5 (<5.0-8.0) Urine Specific [place] 1.025 (1.000-1.030) Urine Protein 30 mg/dL (NEG-TRACE) Urine Glucose (UA) 100 mg/dL (NEG) Urine Ketones (Stick) Negative mg/dL (NEG) Urine Blood Negative (NEG) Urine Nitrite Negative (NEG) Urine Bilirubin Negative (NEG) Urine Urobilinogen Dipstick 0.2 mg/dL (0.2 mg/dL) Urine Leukocyte Esterase Negative (NEG) Urine RBC 0 /HPF (0-2) Urine WBC 1-4 /HPF (0-4) Urine Squamous Epithelial Cells Few /LPF Urine Bacteria 0 /HPF (0-FEW) Urine Hyaline Casts Moderate /HPF Urine Mucus Mod /LPF White Blood Count 12.0 x10^3/uL (4.0-11.0) Red Blood Count 3.86 x10^6/uL (4.30-5.70) Hemoglobin 12.1 g/dL (13.0-17.5) Hematocrit 35.3 % (39.0-53.0) Mean Corpuscular Volume 92 fL (79-100) Mean Corpuscular Hemoglobin 31 pg (25-35) Mean Corpuscular Hemoglobin Concent 34 g/dL (31-37) Red Cell Distribution Width 13.1 % (11.5-14.5) Platelet Count 119 x10^3/uL (140-400) Neutrophils (%) (Auto) 97 % (31-73) Lymphocytes (%) (Auto) 1 % (24-48) Monocytes (%) (Auto) 3 % (0-9) Eosinophils (%) (Auto) 0 % (0-3) Basophils (%) (Auto) 0 % (0-3) Neutrophils # (Auto) 11.6 x10^3/uL (1.8-7.7) Lymphocytes # (Auto) 0.1 x10^3/uL (1.0-4.8) Monocytes # (Auto) 0.3 x10^3/uL (0.0-1.1) Eosinophils # (Auto) 0.0 x10^3/uL (0.0-0.7) Basophils # (Auto) 0.0 x10^3/uL (0.0-0.2) Sodium Level 139 mmol/L (136-145) Potassium Level 3.8 mmol/L (3.5-5.1) Chloride Level 107 mmol/L (98-107) Carbon Dioxide Level 21 mmol/L (21-32) Anion Gap 11 (6-14) Blood Urea Nitrogen 21 mg/dL (8-26) Creatinine 1.2 mg/dL (0.7-1.3) Estimated GFR (Cockcroft-Gault) 60.2 Glucose Level 165 mg/dL (70-99) Calcium Level 8.4 mg/dL (8.5-10.1) Magnesium Level 2.0 mg/dL (1.8-2.4) Troponin I Quantitative 0.035 ng/mL (0.000-0.055) Triglycerides Level 100 mg/dL (0-150) Cholesterol Level 120 mg/dL (0-200) LDL Cholesterol, Calculated 77 mg/dL (0-100) VLDL Cholesterol, Calculated 20 mg/dL (0-40) Non-HDL Cholesterol Calculated 97 mg/dL (0-129) HDL Cholesterol 23 mg/dL (40-60) Cholesterol/HDL Ratio 5.2 Microbiology 12/08/20 Blood Culture - Preliminary, Resulted NO GROWTH AFTER 1 DAY Medications Current Medications Methylprednisolone Sodium Succinate (SOLU-Medrol 125MG VIAL) 125 mg 1X ONCE IV Last administered on 12/08/20at 15:03; Start 12/08/20 at 14:30; Stop 12/08/20 at 14:34; Status DC Albuterol Sulfate (Ventolin Neb Soln) 2.5 mg 1X ONCE NEB Last administered on 12/08/20at 15:15; Start 12/08/20 at 14:30; Stop 12/08/20 at 14:34; Status DC Acetaminophen (Tylenol) 1,000 mg 1X ONCE PO Last administered on 12/08/20at 15:02; Start 12/08/20 at 14:30; Stop 12/08/20 at 14:34; Status DC Piperacillin Sod/ Tazobactam Sod 3.375 gm/Sodium Chloride 50 ml @ 100 mls/hr 1X ONCE IV Last administered on 12/08/20at 15:03; Start 12/08/20 at 14:45; Stop 12/08/20 at 15:14; Status DC Sodium Chloride 1,000 ml @ 1,000 mls/hr 1X ONCE IV Last administered on 12/08/20at 15:02; Start 12/08/20 at 14:45; Stop 12/08/20 at 15:44; Status DC Sodium Chloride 1,000 ml @ 125 mls/hr Q8H IV Last administered on 12/09/20at 13:40; Start 12/08/20 at 15:15; Stop 12/09/20 at 15:14; Status DC Acetaminophen (Tylenol) 650 mg PRN Q4HRS PRN PO FEVER > 100.3'F; Start 12/08/20 at 15:15; Stop 12/09/20 at 15:14; Status DC Albuterol/ Ipratropium (Duoneb) 3 ml RTQID NEB ; Start 12/08/20 at 16:00; Stop 12/09/20 at 15:59; Status DC Amiodarone HCl 150 mg/Dextrose 103 ml @ 618 mls/hr 1X ONCE IV Last administered on 12/08/20at 16:12; Start 12/08/20 at 16:00; Stop 12/08/20 at 16:09; Status DC Piperacillin Sod/ Tazobactam Sod 3.375 gm/Sodium Chloride 50 ml @ 100 mls/hr Q6HRS IV Last administered on 12/09/20at 18:19; Start 12/08/20 at 22:00 Amiodarone HCl 450 mg/Dextrose 259 ml @ 17.267 mls/ hr CONT PRN IV SEE I/O RECORD Last administered on 12/09/20at 01:41; Start 12/08/20 at 16:30; Stop 12/09/20 at 01:43; Status DC Magnesium Sulfate/ Dextrose 100 ml @ 100 mls/hr 1X ONCE IV Last administered on 12/08/20at 16:49; Start 12/08/20 at 16:30; Stop 12/08/20 at 17:29; Status DC Potassium Chloride (Klor-Con) 40 meq 1X ONCE PO Last administered on 12/08/20at 16:49; Start 12/08/20 at 16:45; Stop 12/08/20 at 16:46; Status DC Potassium Chloride/Water 100 ml @ 100 mls/hr Q1H IV Last administered on 12/08/20at 18:55; Start 12/08/20 at 17:00; Stop 12/08/20 at 18:59; Status DC Alprazolam (Xanax) 0.5 mg TID PO Last administered on 12/09/20at 20:42; Start 12/09/20 at 14:00 Aspirin (Graciela Aspirin) 325 mg PRN DAILY PRN PO PAIN; Start 12/09/20 at 10:45 Doxazosin Mesylate (Cardura) 4 mg HS PO ; Start 12/09/20 at 21:00 Finasteride (Proscar) 5 mg DAILY PO Last administered on 12/09/20at 13:37; Start 12/09/20 at 12:00 Metoprolol Tartrate (Lopressor) 12.5 mg BID PO Last administered on 12/09/20at 20:42; Start 12/09/20 at 11:00 Doxycycline Hyclate (Vibra-Tab) 100 mg BID PO Last administered on 12/09/20at 20:42; Start 12/09/20 at 12:30 Albuterol/ Ipratropium (Combivent Respimat 20-100 Mcg) 1 puff RTQID INH Last administered on 12/09/20at 13:51; Start 12/09/20 at 14:00 Lactobacillus Rhamnosus (Culturelle) 1 cap BID PO Last administered on 12/09/20at 20:42; Start 12/09/20 at 21:00 Amiodarone HCl 450 mg/Dextrose 259 ml @ 17.267 mls/ hr CONT PRN IV SEE I/O RECORD Last administered on 12/09/20at 16:52; Start 12/09/20 at 16:00 Furosemide (Lasix) 40 mg 1X ONCE IVP Last administered on 12/09/20at 20:41; Start 12/09/20 at 20:30; Stop 12/09/20 at 20:37; Status DC Digoxin (Lanoxin) 250 mcg 1X ONCE IV Last administered on 12/09/20at 20:42; Start 12/09/20 at 20:30; Stop 12/09/20 at 20:37; Status DC Digoxin (Lanoxin) 250 mcg 1X ONCE IV ; Start 12/09/20 at 22:30; Stop 12/09/20 at 22:31 Active Scripts Active Metoprolol Tartrate 25 Mg Tablet 12.5 Mg PO BID 30 Days Reported Vitamin B12 (Cyanocobalamin (Vitamin B-12)) 5,000 Mcg Tab.rapdis 1,000 Mcg PO DAILY Aspirin 325 Mg Tablet 325 Mg PO DAILY PRN 90 Days Doxazosin Mesylate 4 Mg Tablet 1 Tab PO HS Finasteride 5 Mg Tablet 1 Tab PO DAILY Alprazolam 0.5 Mg Tablet 1 Tab PO TID Viagra (Sildenafil Citrate) 50 Mg Tablet 1 Tab PO UD Pravastatin Sodium 40 Mg Tablet 1 Tab PO DAILY Vitals/I & O Vital Sign - Last 24 Hours 12/08/20 12/08/20 12/08/20 12/08/20 21:00 21:15 21:30 21:45 Pulse 74 74 74 72 Resp 24 25 22 23 B/P (MAP) 130/83 (99) 132/82 (99) 134/85 (101) 137/88 (104) Pulse Ox 96 97 98 99 O2 Delivery Nasal Cannula Nasal Cannula Nasal Cannula Room Air O2 Flow Rate 2.0 2.0 2.0 12/08/20 12/08/20 12/08/20 12/08/20 22:00 22:15 22:30 22:45 Pulse 74 72 84 86 Resp 23 23 29 31 B/P (MAP) 127/79 (95) 129/87 (101) 142/95 (111) 138/90 (106) Pulse Ox 100 100 100 100 O2 Delivery Room Air Room Air Room Air Room Air 12/08/20 12/08/20 12/08/20 12/09/20 23:15 23:30 23:45 00:00 Pulse 86 82 78 78 Resp 33 27 22 25 B/P (MAP) 138/88 (105) 129/75 (93) 117/66 (83) 120/73 (89) Pulse Ox 98 100 99 100 O2 Delivery Room Air Room Air Room Air Room Air 12/09/20 12/09/20 12/09/20 12/09/20 00:15 00:30 00:45 01:00 Pulse 78 76 82 86 Resp 24 24 33 36 B/P (MAP) 118/74 (89) 122/76 (91) 158/89 (112) 153/79 (103) Pulse Ox 100 100 99 99 O2 Delivery Room Air Room Air Room Air Room Air 12/09/20 12/09/20 12/09/20 12/09/20 01:15 01:30 01:45 02:00 Pulse 88 88 84 80 Resp 38 38 27 27 B/P (MAP) 159/86 (110) 146/82 (103) 138/82 (100) 137/80 (99) Pulse Ox 96 97 99 97 O2 Delivery Room Air Room Air Room Air Room Air 12/09/20 12/09/20 12/09/20 12/09/20 02:15 02:30 03:00 03:15 Pulse 76 76 80 72 Resp 25 B/P (MAP) 135/78 (97) 122/79 (93) 151/86 (107) 153/81 (105) Pulse Ox 99 98 99 98 O2 Delivery Room Air Room Air Room Air Room Air 12/09/20 12/09/20 12/09/20 12/09/20 03:30 03:45 04:00 04:15 Pulse 76 78 80 94 Resp 47 B/P (MAP) 156/92 (113) 174/100 (124) 179/94 (122) 175/93 (120) Pulse Ox 98 98 98 97 O2 Delivery Room Air Room Air Room Air Room Air 12/09/20 12/09/20 12/09/20 12/09/20 04:33 05:00 05:15 05:30 Pulse 120 94 86 86 Resp 39 26 26 47 B/P (MAP) 159/89 (112) 142/90 (107) 147/86 (106) 147/82 (103) Pulse Ox 98 97 98 97 O2 Delivery Room Air Room Air Room Air Room Air 12/09/20 12/09/20 12/09/20 12/09/20 05:45 06:00 06:15 06:30 Pulse 88 86 86 82 Resp 29 29 B/P (MAP) 139/81 (100) 146/82 (103) 147/ 145/84 (104) Pulse Ox 100 98 99 100 O2 Delivery Room Air Room Air Room Air Room Air 12/09/20 12/09/20 12/09/20 12/09/20 07:00 08:00 08:45 10:00 Temp 99.0 99.0 Pulse 85 75 111 94 Resp 28 17 B/P (MAP) 158/87 (110) 146/82 (103) 162/82 (108) 151/85 (107) Pulse Ox 100 100 100 O2 Delivery Nasal Cannula Nasal Cannula Nasal Cannula Nasal Cannula O2 Flow Rate 3.0 3.0 3.0 2.0 12/09/20 12/09/20 12/09/20 12/09/20 11:00 12:00 13:00 13:39 Pulse 91 94 101 105 Resp 17 18 22 B/P (MAP) 150/84 (106) 147/95 (112) 153/93 (113) 157/89 Pulse Ox 98 98 98 O2 Delivery Nasal Cannula Nasal Cannula Nasal Cannula O2 Flow Rate 2.0 2.0 2.0 12/09/20 12/09/20 12/09/20 12/09/20 14:00 14:12 14:50 15:00 Temp 99.1 99.8 99.1 99.8 Pulse 91 113 100 Resp 22 24 24 B/P (MAP) 149/87 (107) 168/92 (117) 168/81 (110) Pulse Ox 98 96 98 O2 Delivery Nasal Cannula Nasal Cannula Nasal Cannula O2 Flow Rate 2.0 2.0 2.0 12/09/20 12/09/20 12/09/20 12/09/20 16:02 16:21 19:45 20:42 Temp 102.0 102.0 Pulse 111 151 111 Resp 24 B/P (MAP) 174/97 (122) 144/104 (117) 174/97 Pulse Ox 95 O2 Delivery Nasal Cannula Nasal Cannula O2 Flow Rate 2.0 2.0 12/09/20 20:42 Pulse 111 B/P (MAP) 174/97 Intake and Output 12/08/20 12/08/20 12/09/20 14:59 22:59 06:59 Intake Total 1303 ml 1050 ml Balance 1303 ml 1050 ml Justifications for Admission Other Justification JUJU SPIVEY MD Dec 09, 2020 21:03
[2020-12-09] MEDS: ACETAMINOPHEN 325 MG TABLET. PO PRN (21:17)
[2020-12-09 23:35] VITALS: BP 137/92
[2020-12-10 03:50] VITALS: BP 139/90
[2020-12-10] MEDS: ACETAMINOPHEN 325 MG TABLET. PO PRN ×2 (04:27→15:45)
[2020-12-10] MEDS: PIPERACILLIN/TAZOBACTAM 3.375 GM in IV NORMAL SALINE 50ML 50 ML IV SCH ×3 (05:57→17:34)
[2020-12-10 07:00] VITALS: BP 145/99
--- NOTE | 2020-12-10 08:31 | PN ---
DATE: 12/10/2020 DAILY PROGRESS NOTE LOCATION: He is in room 256. SUBJECTIVE: This 70-year-old male remains hospitalized with right upper lobe pneumonia, sepsis, lactic acidosis. He is COVID negative and had nonsustained ventricular tachycardia in the emergency room with evidence of heart failure in addition. OBJECTIVE: VITAL SIGNS: Stable. T-max in last 24 hours was 102. CHEST: Reveals rhonchi and rales, right upper lobe. HEART: Regular with a rate of approximately 100 at the time of my examination. ABDOMEN: Benign. EXTREMITIES: Without cyanosis, clubbing with 1-2+ edema. IMAGING: Ultrasound of his right lower extremity shows no evidence of DVT. LABORATORY DATA: White count up to 12,000 yesterday with ongoing left shift. He had a Meier catheter placed due to urinary incontinence. IMPRESSION: 1. Right upper lobe pneumonia with sepsis. 2. Acute hypoxic respiratory failure. 3. Underlying chronic obstructive pulmonary disease. 4. Leukocytosis, lactic acidosis. 5. Nonsustained ventricular tachycardia. 6. History of prostate cancer. PLAN: Continue present antibiotics. Echocardiogram was planned. Help of consultants appreciated. Continue supportive care. DEMETRI DR: Dez TID: [id number]
--- NOTE | 2020-12-10 08:33 | PDOC ---
Infectious Disease Note Subjective: Subjective Patient feels better Now on 2 L O2 by nasal cannula T-max 102 Temperature 100.4 this morning Had a run A. fib with RVR per RN Vital Signs: Vital Signs Vital Signs Date Time Temp Pulse Resp B/P (MAP) Pulse Ox O2 Delivery O2 Flow Rate FiO2 12/10/20 03:50 100.4 104 22 139/90 (106) 97 Nasal Cannula 2.0 100.4 Physical Exam: PHYSICAL EXAM GENERAL: Alert, oriented x 3 male in no acute distress. HEENT: Normocephalic, atraumatic. Anicteric. No thrush. Oral mucosa moist. NECK: Supple, no JVD. LUNGS: Coarse breath sounds. HEART: S1, S2 irregular. Tachycardia ABDOMEN: Soft, nontender, nondistended. EXTREMITIES: Right lower extremity swelling, a little bit more than the left. No cyanosis. DERMATOLOGIC: Warm, dry, no generalized rash. NEUROLOGIC: Alert and oriented x 3, grossly nonfocal. PSYCHIATRIC: Calm and cooperative. Medications: Inpatient Meds: Medications reviewed. Labs: Lab Laboratory Tests Test 12/09/20 13:58 SARS-CoV-2 RNA (KATIE) Negative (Negative) Objective: Assessment: 1. Fever, source respiratory. 2. Acute hypoxic respiratory failure with underlying chronic obstructive pulmonary disease. 3. History of chronic obstructive pulmonary disease. 4. History of tobaccoism. 5. Leukocytosis and lactic acidosis. 6. Nonsustained ventricular tachycardia. A. fib with RVR 7. History of prostate cancer. 8. Thrombocytopenia 9. Right lower extremity swelling and pain Doppler negative for DVT 10. Pulmonary edema Plan: Plan of Care 1. Continue Zosyn. 2. Continue doxycycline. 3. Follow up labs and cultures. Repeat Covid PCR pending 4. Continue supportive care. Discussed with nursing staff. Discussed with CAROLYN Muro MD Dec 10, 2020 08:33
[2020-12-10] MEDS: ALPRAZolam 0.5 MG TABLET PO SCH ×3 (09:10→20:47)
[2020-12-10] MEDS: DOXYCYCLINE HYCLATE 100 MG TABLET PO SCH ×2 (09:10→20:46)
[2020-12-10] MEDS: LACTOBACILLUS RHAMNOSUS GG 1 CAPSULE. PO SCH ×2 (09:10→20:47)
[2020-12-10] MEDS: METOPROLOL TART IMMED RELEASE 25 MG TABLET. PO SCH (09:11)
[2020-12-10] MEDS: FINASTERIDE 5 MG TABLET. PO SCH (09:11)
--- NOTE | 2020-12-10 09:45 | PDOC ---
PULMONARY PROGRESS NOTES DATE: 12/10/20 TIME: 09:42 Subjective Patient developed atrial fibrillation with rapid ventricular response. Clinically went into CHF. Received Lasix and started on amiodarone. Remains febrile. Remains on 2 L nasal cannula Vitals Vital Signs Date Time Temp Pulse Resp B/P (MAP) Pulse Ox O2 Delivery O2 Flow Rate FiO2 12/10/20 09:11 125 12/10/20 07:00 98.1 22 145/99 (114) 94 Nasal Cannula 2.0 98.1 Comments Visual exam done due to Covid suspicion. No paradoxical breathing. No obvious leg edema or skin rash. Labs Laboratory Tests Test 12/08/20 14:35 12/08/20 14:48 12/08/20 14:55 12/08/20 15:58 SARS-CoV-2 RNA (KATIE) Negative (Negative) SARS-CoV-2 Antigen (Rapid) Negative (NEGATIVE) White Blood Count 10.5 x10^3/uL (4.0-11.0) Red Blood Count 4.56 x10^6/uL (4.30-5.70) Hemoglobin 14.3 g/dL (13.0-17.5) Hematocrit 41.0 % (39.0-53.0) Mean Corpuscular Volume 90 fL (79-100) Mean Corpuscular Hemoglobin 31 pg (25-35) Mean Corpuscular Hemoglobin Concent 35 g/dL (31-37) Red Cell Distribution Width 13.1 % (11.5-14.5) Platelet Count 126 x10^3/uL (140-400) Neutrophils (%) (Auto) 94 % (31-73) Lymphocytes (%) (Auto) 1 % (24-48) Monocytes (%) (Auto) 4 % (0-9) Eosinophils (%) (Auto) 0 % (0-3) Basophils (%) (Auto) 0 % (0-3) Neutrophils # (Auto) 9.9 x10^3/uL (1.8-7.7) Lymphocytes # (Auto) 0.1 x10^3/uL (1.0-4.8) Monocytes # (Auto) 0.4 x10^3/uL (0.0-1.1) Eosinophils # (Auto) 0.0 x10^3/uL (0.0-0.7) Basophils # (Auto) 0.0 x10^3/uL (0.0-0.2) Segmented Neutrophils % 79 % (35-66) Band Neutrophils % 18 % (0-9) Lymphocytes % 1 % (24-48) Monocytes % 2 % (0-10) Dohle Bodies Present Platelet Estimate Adequate (ADEQUATE) Lactic Acid Level 2.2 mmol/L (0.4-2.0) O2 Saturation 95 % (92-99) Arterial Blood pH 7.58 (7.35-7.45) Arterial Blood pCO2 at Patient Temp 21 mmHg (35-46) Arterial Blood pO2 at Patient Temp 63 mmHg (65-108) Arterial Blood HCO3 20 mmol/L (21-28) Arterial Blood Base Excess 0 mmol/L (-3-3) Oxyhemoglobin 93.9 % Methemoglobin 0.5 % (0.0-1.9) Carbon Monoxide, Quantitative 0.1 % (0.0-1.9) FiO2 21 Sodium Level 137 mmol/L (136-145) Potassium Level 2.7 mmol/L (3.5-5.1) Chloride Level 103 mmol/L (98-107) Carbon Dioxide Level 21 mmol/L (21-32) Anion Gap 13 (6-14) Blood Urea Nitrogen 18 mg/dL (8-26) Creatinine 1.4 mg/dL (0.7-1.3) Estimated GFR (Cockcroft-Gault) 50.4 BUN/Creatinine Ratio 13 (6-20) Glucose Level 127 mg/dL (70-99) Calcium Level 8.8 mg/dL (8.5-10.1) Magnesium Level 1.6 mg/dL (1.8-2.4) Total Bilirubin 1.3 mg/dL (0.2-1.0) Aspartate Amino Transf (AST/SGOT) 15 U/L (15-37) Alanine Aminotransferase (ALT/SGPT) 15 U/L (16-63) Alkaline Phosphatase 64 U/L (46-116) Troponin I Quantitative 0.135 ng/mL (0.000-0.055) DE-Cqf-O-Type Natriuretic Peptide 6687 pg/mL (0-124) Total Protein 5.8 g/dL (6.4-8.2) Albumin 2.4 g/dL (3.4-5.0) Albumin/Globulin Ratio 0.7 (1.0-1.7) Test 12/08/20 19:25 12/09/20 04:47 12/09/20 05:50 12/09/20 13:58 Lactic Acid Level 2.2 mmol/L (0.4-2.0) Urine Collection Type Unknown Urine Color Antonella Urine Clarity Clear Urine pH 5.5 (<5.0-8.0) Urine Specific [place] 1.025 (1.000-1.030) Urine Protein 30 mg/dL (NEG-TRACE) Urine Glucose (UA) 100 mg/dL (NEG) Urine Ketones (Stick) Negative mg/dL (NEG) Urine Blood Negative (NEG) Urine Nitrite Negative (NEG) Urine Bilirubin Negative (NEG) Urine Urobilinogen Dipstick 0.2 mg/dL (0.2 mg/dL) Urine Leukocyte Esterase Negative (NEG) Urine RBC 0 /HPF (0-2) Urine WBC 1-4 /HPF (0-4) Urine Squamous Epithelial Cells Few /LPF Urine Bacteria 0 /HPF (0-FEW) Urine Hyaline Casts Moderate /HPF Urine Mucus Mod /LPF White Blood Count 12.0 x10^3/uL (4.0-11.0) Red Blood Count 3.86 x10^6/uL (4.30-5.70) Hemoglobin 12.1 g/dL (13.0-17.5) Hematocrit 35.3 % (39.0-53.0) Mean Corpuscular Volume 92 fL (79-100) Mean Corpuscular Hemoglobin 31 pg (25-35) Mean Corpuscular Hemoglobin Concent 34 g/dL (31-37) Red Cell Distribution Width 13.1 % (11.5-14.5) Platelet Count 119 x10^3/uL (140-400) Neutrophils (%) (Auto) 97 % (31-73) Lymphocytes (%) (Auto) 1 % (24-48) Monocytes (%) (Auto) 3 % (0-9) Eosinophils (%) (Auto) 0 % (0-3) Basophils (%) (Auto) 0 % (0-3) Neutrophils # (Auto) 11.6 x10^3/uL (1.8-7.7) Lymphocytes # (Auto) 0.1 x10^3/uL (1.0-4.8) Monocytes # (Auto) 0.3 x10^3/uL (0.0-1.1) Eosinophils # (Auto) 0.0 x10^3/uL (0.0-0.7) Basophils # (Auto) 0.0 x10^3/uL (0.0-0.2) Sodium Level 139 mmol/L (136-145) Potassium Level 3.8 mmol/L (3.5-5.1) Chloride Level 107 mmol/L (98-107) Carbon Dioxide Level 21 mmol/L (21-32) Anion Gap 11 (6-14) Blood Urea Nitrogen 21 mg/dL (8-26) Creatinine 1.2 mg/dL (0.7-1.3) Estimated GFR (Cockcroft-Gault) 60.2 Glucose Level 165 mg/dL (70-99) Calcium Level 8.4 mg/dL (8.5-10.1) Magnesium Level 2.0 mg/dL (1.8-2.4) Troponin I Quantitative 0.035 ng/mL (0.000-0.055) Triglycerides Level 100 mg/dL (0-150) Cholesterol Level 120 mg/dL (0-200) LDL Cholesterol, Calculated 77 mg/dL (0-100) VLDL Cholesterol, Calculated 20 mg/dL (0-40) Non-HDL Cholesterol Calculated 97 mg/dL (0-129) HDL Cholesterol 23 mg/dL (40-60) Cholesterol/HDL Ratio 5.2 SARS-CoV-2 RNA (KATIE) Negative (Negative) Laboratory Tests Test 12/09/20 13:58 SARS-CoV-2 RNA (KATIE) Negative (Negative) Medications Active Scripts Medications Dose Route/Sig Max Daily Dose Days Date Category Metoprolol Tartrate 25 Mg Tablet 12.5 Mg PO BID 30 08/10/19 Rx Vitamin B12 (Cyanocobalamin (Vitamin B-12)) 5,000 Mcg Tab.rapdis 1,000 Mcg PO DAILY 08/10/19 Reported Aspirin 325 Mg Tablet 325 Mg PO DAILY PRN 90 02/06/19 Reported Doxazosin Mesylate 4 Mg Tablet 1 Tab PO HS 02/10/14 Reported Finasteride 5 Mg Tablet 1 Tab PO DAILY 02/10/14 Reported Alprazolam 0.5 Mg Tablet 1 Tab PO TID 02/10/14 Reported Viagra (Sildenafil Citrate) 50 Mg Tablet 1 Tab PO UD 02/10/14 Reported Pravastatin Sodium 40 Mg Tablet 1 Tab PO DAILY 02/10/14 Reported Impression . 1. Acute hypoxic respiratory failure in a patient who presents with fever of 103 and had interstitial infiltrates in the right upper lobe. Clinical suspicion for COVID-19 pneumonia is high. Rapid test and messenger RNA test done in house is negative, but we will await for PCR. Other differential diagnosis would be Gram-negative pneumonia. 2. Underlying suspected severe chronic obstructive pulmonary disease from 50 years of tobacco use. 3. Abnormal chest x-ray with right upper lobe interstitial infiltrates. 4. Nonsustained ventricular tachycardia in the emergency room, did not require cardioversion. 5. Atrial fibrillation with rapid ventricular response. Currently on amiodarone. Plan . 1. Continue present oxygen. Keep saturation 92 and above. 2. Empiric antibiotic. 3. PCR for COVID. Sent today 4. Bronchodilators. 5. If COVID positive, then we will add dexamethasone as well as remdesivir. 6. Amiodarone per cardiology. 7. Discussed with RN. COLLEEN GANT MD Dec 10, 2020 09:45
[2020-12-10] MEDS: AMIODARONE HCL 200 MG TABLET. PO SCH (10:51)
[2020-12-10 11:00] VITALS: BP 133/95
--- NOTE | 2020-12-10 11:49 | PDOC ---
CARDIO Progress Notes Date and Time Date of Service 12/10/20 Time of Evaluation 1130 Subjective Subjective: No Chest Pain, No Palpitations, Other (SOA, cough ) Vitals Vitals Vital Signs Date Time Temp Pulse Resp B/P (MAP) Pulse Ox O2 Delivery O2 Flow Rate FiO2 12/10/20 10:51 115 12/10/20 07:00 98.1 22 145/99 (114) 94 Nasal Cannula 2.0 98.1 Weight Weight [ ] Input and Output Intake and Output Intake and Output 12/10/20 07:00 Intake Total 1865 ml Output Total 2600 ml Balance -735 ml Intake Oral 640 ml IV Total 1100 ml Blood Product IV Normal Saline Flush 125 ml Output Urine Total 2600 ml # Voids 1 # Bowel Movements 1 Laboratory Labs Laboratory Tests Test 12/09/20 13:58 SARS-CoV-2 RNA (KATIE) Negative (Negative) Microbiology Micro Microbiology 12/08/20 Blood Culture - Preliminary, Resulted NO GROWTH AFTER 1 DAY Physical Exam Chest: Symmetric LUNGS: Other (NC, crackles ) Heart: irregularly irregular (AFIB, rate mildly elevated ) Abdomen: Soft N/T Extremities: Other (trace pedal edema ) Neurology: alert, oriented, follow commands Assessment Assessment 1. Acute respiratory failure with PNA and CHF; rapid COVID negative. Awaiting PCR 2. Acute on chronic diastolic CHF 3. Arrhythmia; EKG with NSVT vs AFIB with aberrancy. On amiodarone gtt. Echo 02/03 with preserved LV systolic function 4. PAFIB with RVR; remains in AFIB with intermittent RVR 5. Elevated troponin; peak 0.135. Most probably type II, demand ischemia 6. Hypokalemia, hypomagnesemia 7. Hypertension; controlled 8. CAD s/p PCI/stent about 10 years ago. 9. Hyperlipidemia; statin 10. YE 11. Leukocytosis, lactic acidosis, fevers Recommendations Convert Amiodarone to oral for rhythm maintenance Increase metoprolol for better rate control S/p IV Dig Consider addition of OAC for stroke prevention Replace K, check Mg and replace as warranted Lasix ASA therapy Secondary prevention measures. add statin Echo to assess LV systolic function if PCR is negative Ongoing lung optimization, treatment of PNA Justicifation of Admission Dx: Justifications for Admission: Justification of Admission Dx: Yes Comments: Acute respiratory failure, PNA AFIB with RVR NORMAJOSUE VARGAS APRN Dec 10, 2020 11:49
[2020-12-10] MEDS ORDERED: METOPROLOL TART IMMED RELEASE 25 MG TABLET. PO ONE (12:00)
[2020-12-10] MEDS: IPRATROPIUM/ALBUTEROL 20/100mcg/INH INHALER. INH SCH ×3 (12:00→20:00)
[2020-12-10 12:45] LABS: BASO % 0 % (0-3); EOS % 0 % (0-3); HEMATOCRIT 38.4 % (39.0-53.0); HEMOGLOBIN 13.1 g/dL (13.0-17.5); LYMPH % 1 % (24-48); MEAN CORPUSCULAR HEMOGLOBIN 31 pg (25-35); MEAN CORPUSCULAR HGB CONC 34 g/dL (31-37); MEAN CORPUSCULAR VOLUME 92 fL (79-100); MONO # 0.2 x10^3/uL (0.0-1.1); MONO % 3 % (0-9); NEUT # 7.8 x10^3/uL (1.8-7.7); NEUT % 96 % (31-73); PLATELET COUNT 136 x10^3/uL (140-400); RED BLOOD COUNT 4.18 x10^6/uL (4.30-5.70); RED CELL DISTRIBUTION WIDTH 13.2 % (11.5-14.5); WHITE BLOOD COUNT 8.1 x10^3/uL (4.0-11.0)
[2020-12-10 12:52] LABS: CALCIUM 8.9 mg/dL (8.5-10.1); CREATININE 1.1 mg/dL (0.7-1.3); GFR 66.6
--- NOTE | 2020-12-10 13:50 | NUR ---
SS following for discharge planning. SS reviewed pt chart and discussed with pt RN. Pt is from home and is currently requiring oxygen at two liters nasal canula. COVID19 negative, but pt still under investigation for COVID19. Pt was swabbed for COVID19 today and test was sent to [facility] for sensitivities to be checked. Pt is currently on PO Amiodarone and PO doxycycline. Pt on IV Zosyn. Cardiology, Pulmonology, and ID following. Pt requesting Healthcare DPOA at this time. SS met with pt and Healthcare DPOA completed. DPOA, Olga Chapman, . Copy placed in chart. SS will continue to follow for discharge planning.
[2020-12-10 15:00] VITALS: BP 145/105
[2020-12-10] MEDS ORDERED: DIGOXIN IV 500 MCG/2 ML AMPUL. IV ONE (15:30)
[2020-12-10] MEDS ORDERED: POTASSIUM CHLORIDE 20 MEQ TABLET.ER. PO ONE ×2 (17:00→21:00)
[2020-12-10] MEDS ORDERED: FUROSEMIDE 40 MG/4 ML VIAL. IVP ONE (17:00)
[2020-12-10] MEDS ORDERED: HYDR-2761 PO (18:09)
[2020-12-10] MEDS ORDERED: ABIR250T PO (18:09)
[2020-12-10] MEDS ORDERED: MULT-658 PO (18:09)
[2020-12-10] MEDS ORDERED: METO25TA4 PO (18:09)
[2020-12-10] MEDS ORDERED: OLAN10TA69 PO (18:09)
[2020-12-10] MEDS ORDERED: PRED5TAB PO (18:09)
[2020-12-10] MEDS ORDERED: BISA-42 PO (18:09)
[2020-12-10] MEDS ORDERED: AMLO-187 PO (18:09)
[2020-12-10] MEDS ORDERED: IRBE150T21 PO (18:09)
[2020-12-10] MEDS ORDERED: GINK120T3 PO (18:09)
[2020-12-10] MEDS ORDERED: CITA10TA4 PO (18:09)
[2020-12-10] MEDS ORDERED: MAGNESIUM SULFATE 2GM 50 ML IV ONE (19:00)
[2020-12-10 19:29] VITALS: BP 104/79
[2020-12-10] MEDS: ATORVASTATIN CALCIUM 40 MG TABLET. PO SCH (20:46)
[2020-12-10] MEDS: DOXAZOSIN MESYLATE 4 MG TABLET. PO SCH (20:48)
[2020-12-10] MEDS: METOPROLOL TART IMMED RELEASE 50 MG TABLET. PO SCH (20:48)
[2020-12-10 23:03] VITALS: BP 133/93
[2020-12-11] MEDS: PIPERACILLIN/TAZOBACTAM 3.375 GM in IV NORMAL SALINE 50ML 50 ML IV SCH ×5 (00:21→22:50)
[2020-12-11 03:00] VITALS: BP 98/68
--- NOTE | 2020-12-11 07:36 | PDOC ---
PULMONARY PROGRESS NOTES DATE: 12/11/20 TIME: 07:36 Subjective Patient feels better, now more short of breath. Vitals Vital Signs Date Time Temp Pulse Resp B/P (MAP) Pulse Ox O2 Delivery O2 Flow Rate FiO2 12/11/20 03:00 99.5 114 16 98/68 (78) 86 Nasal Cannula 2.0 99.5 Comments Visual exam done due to Covid suspicion. No paradoxical breathing. No obvious leg edema or skin rash. Labs Laboratory Tests Test 12/09/20 13:58 12/10/20 09:35 12/10/20 11:30 SARS-CoV-2 RNA (KATIE) Negative (Negative) Coronavirus (COVID-19)(PCR) Negative (NEGATIVE) White Blood Count 8.1 x10^3/uL (4.0-11.0) Red Blood Count 4.18 x10^6/uL (4.30-5.70) Hemoglobin 13.1 g/dL (13.0-17.5) Hematocrit 38.4 % (39.0-53.0) Mean Corpuscular Volume 92 fL (79-100) Mean Corpuscular Hemoglobin 31 pg (25-35) Mean Corpuscular Hemoglobin Concent 34 g/dL (31-37) Red Cell Distribution Width 13.2 % (11.5-14.5) Platelet Count 136 x10^3/uL (140-400) Neutrophils (%) (Auto) 96 % (31-73) Lymphocytes (%) (Auto) 1 % (24-48) Monocytes (%) (Auto) 3 % (0-9) Eosinophils (%) (Auto) 0 % (0-3) Basophils (%) (Auto) 0 % (0-3) Neutrophils # (Auto) 7.8 x10^3/uL (1.8-7.7) Lymphocytes # (Auto) 0.0 x10^3/uL (1.0-4.8) Monocytes # (Auto) 0.2 x10^3/uL (0.0-1.1) Eosinophils # (Auto) 0.0 x10^3/uL (0.0-0.7) Basophils # (Auto) 0.0 x10^3/uL (0.0-0.2) Sodium Level 140 mmol/L (136-145) Potassium Level 3.0 mmol/L (3.5-5.1) Chloride Level 104 mmol/L (98-107) Carbon Dioxide Level 26 mmol/L (21-32) Anion Gap 10 (6-14) Blood Urea Nitrogen 17 mg/dL (8-26) Creatinine 1.1 mg/dL (0.7-1.3) Estimated GFR (Cockcroft-Gault) 66.6 Glucose Level 120 mg/dL (70-99) Calcium Level 8.9 mg/dL (8.5-10.1) Magnesium Level 1.7 mg/dL (1.8-2.4) Laboratory Tests Test 12/10/20 09:35 12/10/20 11:30 Coronavirus (COVID-19)(PCR) Negative (NEGATIVE) White Blood Count 8.1 x10^3/uL (4.0-11.0) Red Blood Count 4.18 x10^6/uL (4.30-5.70) Hemoglobin 13.1 g/dL (13.0-17.5) Hematocrit 38.4 % (39.0-53.0) Mean Corpuscular Volume 92 fL (79-100) Mean Corpuscular Hemoglobin 31 pg (25-35) Mean Corpuscular Hemoglobin Concent 34 g/dL (31-37) Red Cell Distribution Width 13.2 % (11.5-14.5) Platelet Count 136 x10^3/uL (140-400) Neutrophils (%) (Auto) 96 % (31-73) Lymphocytes (%) (Auto) 1 % (24-48) Monocytes (%) (Auto) 3 % (0-9) Eosinophils (%) (Auto) 0 % (0-3) Basophils (%) (Auto) 0 % (0-3) Neutrophils # (Auto) 7.8 x10^3/uL (1.8-7.7) Lymphocytes # (Auto) 0.0 x10^3/uL (1.0-4.8) Monocytes # (Auto) 0.2 x10^3/uL (0.0-1.1) Eosinophils # (Auto) 0.0 x10^3/uL (0.0-0.7) Basophils # (Auto) 0.0 x10^3/uL (0.0-0.2) Sodium Level 140 mmol/L (136-145) Potassium Level 3.0 mmol/L (3.5-5.1) Chloride Level 104 mmol/L (98-107) Carbon Dioxide Level 26 mmol/L (21-32) Anion Gap 10 (6-14) Blood Urea Nitrogen 17 mg/dL (8-26) Creatinine 1.1 mg/dL (0.7-1.3) Estimated GFR (Cockcroft-Gault) 66.6 Glucose Level 120 mg/dL (70-99) Calcium Level 8.9 mg/dL (8.5-10.1) Magnesium Level 1.7 mg/dL (1.8-2.4) Medications Active Scripts Medications Dose Route/Sig Max Daily Dose Days Date Category Metoprolol Tartrate 25 Mg Tablet 12.5 Mg PO BID 30 08/10/19 Rx Vitamin B12 (Cyanocobalamin (Vitamin B-12)) 5,000 Mcg Tab.rapdis 1,000 Mcg PO DAILY 08/10/19 Reported Aspirin 325 Mg Tablet 325 Mg PO DAILY PRN 90 02/06/19 Reported Doxazosin Mesylate 4 Mg Tablet 1 Tab PO HS 02/10/14 Reported Finasteride 5 Mg Tablet 1 Tab PO DAILY 02/10/14 Reported Alprazolam 0.5 Mg Tablet 1 Tab PO TID 02/10/14 Reported Viagra (Sildenafil Citrate) 50 Mg Tablet 1 Tab PO UD 02/10/14 Reported Pravastatin Sodium 40 Mg Tablet 1 Tab PO DAILY 02/10/14 Reported Impression . 1. Acute hypoxic respiratory failure in a patient who presents with fever of 103 and had interstitial infiltrates in the right upper lobe. Clinical suspicion for COVID-19 pneumonia is high. Rapid test and messenger RNA test done in house is negative, but we will await for PCR. Other differential diagnosis would be Gram-negative pneumonia. 2. Underlying suspected severe chronic obstructive pulmonary disease from 50 years of tobacco use. 3. Abnormal chest x-ray with right upper lobe interstitial infiltrates. 4. Nonsustained ventricular tachycardia in the emergency room, did not require cardioversion. Follow cardiology 5. Atrial fibrillation with rapid ventricular response. Per cardiology 6. Fever, follow-up on cultures Plan . Updated 12/11 Antibiotics per ID Serology for Legionella pending Repeat Covid PCR negative from [facility] Follow-up on cultures Follow cardiology input Discontinue steroid Discontinue remdesivir 12/10 1. Continue present oxygen. Keep saturation 92 and above. 2. Empiric antibiotic. 3. PCR for COVID. Sent today 4. Bronchodilators. 5. If COVID positive, then we will add dexamethasone as well as remdesivir. 6. Amiodarone per cardiology. 7. Discussed with RN. AINSLEY ST MD Dec 11, 2020 07:36
--- NOTE | 2020-12-11 08:05 | PDOC ---
Infectious Disease Note Subjective: Subjective Patient sleepy Arousable but appears tired T-max 102 F Remains on 2 L O2 by nasal cannula Vital Signs: Vital Signs Vital Signs Date Time Temp Pulse Resp B/P (MAP) Pulse Ox O2 Delivery O2 Flow Rate FiO2 12/11/20 03:00 99.5 114 16 98/68 (78) 86 Nasal Cannula 2.0 99.5 Physical Exam: PHYSICAL EXAM GENERAL: Alert, oriented x 3 male in no acute distress. HEENT: Normocephalic, atraumatic. Anicteric. No thrush. Oral mucosa moist. NECK: Supple, no JVD. LUNGS: Coarse breath sounds. HEART: S1, S2 irregular. Tachycardia ABDOMEN: Soft, nontender, nondistended. EXTREMITIES: Right lower extremity swelling, a little bit more than the left. No cyanosis. DERMATOLOGIC: Warm, dry, no generalized rash. NEUROLOGIC: Alert and oriented x 3, grossly nonfocal. PSYCHIATRIC: Calm and cooperative. Medications: Inpatient Meds: Medications reviewed. Labs: Lab Laboratory Tests Test 12/10/20 09:35 12/10/20 11:30 Coronavirus (COVID-19)(PCR) Negative (NEGATIVE) White Blood Count 8.1 x10^3/uL (4.0-11.0) Red Blood Count 4.18 x10^6/uL (4.30-5.70) Hemoglobin 13.1 g/dL (13.0-17.5) Hematocrit 38.4 % (39.0-53.0) Mean Corpuscular Volume 92 fL (79-100) Mean Corpuscular Hemoglobin 31 pg (25-35) Mean Corpuscular Hemoglobin Concent 34 g/dL (31-37) Red Cell Distribution Width 13.2 % (11.5-14.5) Platelet Count 136 x10^3/uL (140-400) Neutrophils (%) (Auto) 96 % (31-73) Lymphocytes (%) (Auto) 1 % (24-48) Monocytes (%) (Auto) 3 % (0-9) Eosinophils (%) (Auto) 0 % (0-3) Basophils (%) (Auto) 0 % (0-3) Neutrophils # (Auto) 7.8 x10^3/uL (1.8-7.7) Lymphocytes # (Auto) 0.0 x10^3/uL (1.0-4.8) Monocytes # (Auto) 0.2 x10^3/uL (0.0-1.1) Eosinophils # (Auto) 0.0 x10^3/uL (0.0-0.7) Basophils # (Auto) 0.0 x10^3/uL (0.0-0.2) Sodium Level 140 mmol/L (136-145) Potassium Level 3.0 mmol/L (3.5-5.1) Chloride Level 104 mmol/L (98-107) Carbon Dioxide Level 26 mmol/L (21-32) Anion Gap 10 (6-14) Blood Urea Nitrogen 17 mg/dL (8-26) Creatinine 1.1 mg/dL (0.7-1.3) Estimated GFR (Cockcroft-Gault) 66.6 Glucose Level 120 mg/dL (70-99) Calcium Level 8.9 mg/dL (8.5-10.1) Magnesium Level 1.7 mg/dL (1.8-2.4) Objective: Assessment: 1. Fever 2. Acute hypoxic respiratory failure with underlying chronic obstructive pulmonary disease. Covid 19 test negative x3 3. History of chronic obstructive pulmonary disease. 4. History of tobaccoism. 5. Leukocytosis and lactic acidosis. 6. Nonsustained ventricular tachycardia. A. fib with RVR 7. History of prostate cancer. 8. Thrombocytopenia 9. Right lower extremity swelling and pain Doppler negative for DVT 10. Pulmonary edema Plan: Plan of Care 1. Continue Zosyn. Add Zyvox 2. Continue doxycycline. Obtain urine Legionella 3. Follow up labs and cultures. Repeat Covid PCR neg at [facility] 4. Continue supportive care. Discussed with nursing staff. CAROLYN WOODALL MD Dec 11, 2020 08:05
--- NOTE | 2020-12-11 10:29 | PDOC ---
CARDIO Progress Notes Date and Time Date of Service 12/11/20 Time of Evaluation 1020 Subjective Subjective: No Chest Pain, No Palpitations, Other (breathing improved ) Vitals Vitals Vital Signs Date Time Temp Pulse Resp B/P (MAP) Pulse Ox O2 Delivery O2 Flow Rate FiO2 12/11/20 03:00 99.5 114 16 98/68 (78) 86 Nasal Cannula 2.0 99.5 Weight Weight [ ] Input and Output Intake and Output Intake and Output 12/11/20 07:00 Intake Total 150 ml Output Total 2650 ml Balance -2500 ml Intake Oral 150 ml Output Urine Total 2650 ml # Bowel Movements 1 Laboratory Labs Laboratory Tests Test 12/10/20 11:30 12/11/20 08:13 White Blood Count 8.1 x10^3/uL (4.0-11.0) Red Blood Count 4.18 x10^6/uL (4.30-5.70) Hemoglobin 13.1 g/dL (13.0-17.5) Hematocrit 38.4 % (39.0-53.0) Mean Corpuscular Volume 92 fL (79-100) Mean Corpuscular Hemoglobin 31 pg (25-35) Mean Corpuscular Hemoglobin Concent 34 g/dL (31-37) Red Cell Distribution Width 13.2 % (11.5-14.5) Platelet Count 136 x10^3/uL (140-400) Neutrophils (%) (Auto) 96 % (31-73) Lymphocytes (%) (Auto) 1 % (24-48) Monocytes (%) (Auto) 3 % (0-9) Eosinophils (%) (Auto) 0 % (0-3) Basophils (%) (Auto) 0 % (0-3) Neutrophils # (Auto) 7.8 x10^3/uL (1.8-7.7) Lymphocytes # (Auto) 0.0 x10^3/uL (1.0-4.8) Monocytes # (Auto) 0.2 x10^3/uL (0.0-1.1) Eosinophils # (Auto) 0.0 x10^3/uL (0.0-0.7) Basophils # (Auto) 0.0 x10^3/uL (0.0-0.2) Sodium Level 140 mmol/L (136-145) Potassium Level 3.0 mmol/L (3.5-5.1) Chloride Level 104 mmol/L (98-107) Carbon Dioxide Level 26 mmol/L (21-32) Anion Gap 10 (6-14) Blood Urea Nitrogen 17 mg/dL (8-26) Creatinine 1.1 mg/dL (0.7-1.3) Estimated GFR (Cockcroft-Gault) 66.6 Glucose Level 120 mg/dL (70-99) Calcium Level 8.9 mg/dL (8.5-10.1) Magnesium Level 1.7 mg/dL (1.8-2.4) Glucose (Fingerstick) 92 mg/dL (70-99) Microbiology Micro Microbiology 12/08/20 Blood Culture - Preliminary, Resulted NO GROWTH AFTER 2 DAYS Physical Exam HEENT: Neck Supple W Full Motion Chest: Symmetric LUNGS: Other (NC, diminished bases) Heart: RRR (SR) Abdomen: Soft N/T Extremities: Other (trace pedal edema ) Neurology: alert, oriented, follow commands Assessment Assessment 1. Acute respiratory failure with PNA and CHF; rapid and PCR COVID negative. 2. Acute on chronic diastolic CHF; improved with diuresis 3. Arrhythmia; EKG with probable SVT with aberrancy vs VT. Echo 02/03 with preserved LV systolic function 4. PAFIB with RVR; converted back to SR 5. Elevated troponin; peak 0.135. Most probably type II, demand ischemia. CP free 6. Hypokalemia, hypomagnesemia; replaced 7. Hypertension; controlled 8. CAD s/p PCI/stent about 10 years ago. 9. Hyperlipidemia; statin 10. YE; resolved 11. Leukocytosis, lactic acidosis, ongoing fevers Recommendations Continue Amiodarone for rhythm maintenance Metoprolol for rate control ASA therapy Consider addition of OAC for stroke prevention Secondary prevention measures Ongoing lung optimization, treatment of PNA Consider further ischemic evaluation Supportive care Justicifation of Admission Dx: Justifications for Admission: Justification of Admission Dx: Yes JOSUE GREEN APRN Dec 11, 2020 10:29
[2020-12-11 11:00] VITALS: BP 135/78
[2020-12-11] MEDS: DOXYCYCLINE HYCLATE 100 MG TABLET PO SCH ×2 (11:12→21:17)
[2020-12-11] MEDS: LACTOBACILLUS RHAMNOSUS GG 1 CAPSULE. PO SCH ×2 (11:12→21:17)
[2020-12-11] MEDS: ASPIRIN ENTERIC COATED 81 MG TABLET.DR. PO SCH (11:12)
[2020-12-11] MEDS: ALPRAZolam 0.5 MG TABLET PO SCH ×3 (11:12→21:00)
[2020-12-11] MEDS: METOPROLOL TART IMMED RELEASE 50 MG TABLET. PO SCH ×2 (11:14→21:18)
[2020-12-11] MEDS: AMIODARONE HCL 200 MG TABLET. PO SCH (11:14)
[2020-12-11] MEDS: LINEZOLID 600 MG TABLET PO SCH ×2 (11:18→21:17)
[2020-12-11] MEDS: IPRATROPIUM/ALBUTEROL 20/100mcg/INH INHALER. INH SCH ×4 (11:18→20:00)
[2020-12-11] MEDS: FINASTERIDE 5 MG TABLET. PO SCH (11:18)
--- NOTE | 2020-12-11 13:54 | NUR ---
SS following up with discharge planning. SS reviewed pt chart and discussed with pt RN. Pt is currently requiring oxygen at two liters nasal canula. COVID19 negative. Pt more lethargic today. Chest CT today. Pt on IV Zosyn. SS will continue to follow for discharge planning.
--- NOTE | 2020-12-11 14:00 | NUR ---
WILFRIDO HELD AT 1400PM DUE TO PT'S SLEEPING MOST OF THE DAY TODAY.
[2020-12-11 15:00] VITALS: BP 123/69
--- NOTE | 2020-12-11 15:49 | PN ---
DATE: 12/11/2020 DAILY PROGRESS NOTE LOCATION: He is in room 256. SUBJECTIVE: This 70-year-old male remains hospitalized with acute hypoxic respiratory failure due to right upper lobe pneumonia. He does have underlying COPD. He states that he is feeling somewhat better on a daily basis. OBJECTIVE: VITAL SIGNS: Stable. T-max is 102.2 in the last 24 hours. He is on 2 liters per nasal cannula oxygen. CHEST: With rales, rhonchi, right upper lobe. HEART: Regular. ABDOMEN: Benign. LABORATORY DATA: Cultures negative to date. IMPRESSION: 1. Acute hypoxic respiratory failure due to right upper lobe pneumonia on top of chronic obstructive pulmonary disease. 2. COVID negative. 3. Leukocytosis, improving. 4. Lactic acidosis, on ____. 5. Atrial fibrillation with rapid ventricular response since admission with none further. 6. Prostate cancer. PLAN: Continue present antibiotics with adjustment per ID; otherwise, same. I did encourage him to get up around the room and sit in a chair most of the day today instead of laying all day. PATO/JUN DR: Dez TID: [id number]
--- NOTE | 2020-12-11 16:36 | NUR ---
PAGED DR OLMEDO VIA ANSWERING SERVICE TO ASK IF IT'S OK TO RENEW ELADIO. Addendum: 12/11/20 at 1650 by DARLENE PIERRE RN RN DR OLMEDO GAVE ORDER TO RENEW ELADIO.
[2020-12-11 18:55] VITALS: BP 102/60
[2020-12-11] MEDS: DOXAZOSIN MESYLATE 4 MG TABLET. PO SCH (21:17)
[2020-12-11] MEDS: ATORVASTATIN CALCIUM 40 MG TABLET. PO SCH (21:18)
[2020-12-11 22:04] VITALS: BP 134/71
[2020-12-12 02:37] VITALS: BP 112/64
[2020-12-12] MEDS: PIPERACILLIN/TAZOBACTAM 3.375 GM in IV NORMAL SALINE 50ML 50 ML IV SCH ×4 (06:21→23:38)
[2020-12-12 07:00] VITALS: BP 128/81
[2020-12-12 07:21] LABS: CALCIUM 8.5 mg/dL (8.5-10.1); GFR 74.3; MAGNESIUM 2.1 mg/dL (1.8-2.4)
[2020-12-12 07:28] LABS: POTASSIUM 2.8 mmol/L (3.5-5.1)
--- NOTE | 2020-12-12 07:55 | PDOC ---
Infectious Disease Note Subjective: Subjective Pt feels better Afebrile last 24 hrs on 3 L O2 by nasal cannula Vital Signs: Vital Signs Vital Signs Date Time Temp Pulse Resp B/P (MAP) Pulse Ox O2 Delivery O2 Flow Rate FiO2 12/12/20 02:37 98.2 65 18 112/64 (80) 97 Nasal Cannula 3.0 98.2 Physical Exam: PHYSICAL EXAM GENERAL: Alert, oriented x 3 male in no acute distress. HEENT: Normocephalic, atraumatic. Anicteric. No thrush. Oral mucosa moist. NECK: Supple, no JVD. LUNGS: Coarse breath sounds. HEART: S1, S2 irregular. Tachycardia ABDOMEN: Soft, nontender, nondistended. Meier in place EXTREMITIES: No edema or cyanosis DERMATOLOGIC: Warm, dry, no generalized rash. NEUROLOGIC: Alert and oriented x 3, grossly nonfocal. PSYCHIATRIC: Calm and cooperative. Medications: Inpatient Meds: Medications reviewed. Labs: Lab Laboratory Tests Test 12/11/20 08:13 12/12/20 05:55 Glucose (Fingerstick) 92 mg/dL (70-99) Sodium Level 135 mmol/L (136-145) Potassium Level 2.8 mmol/L (3.5-5.1) Chloride Level 102 mmol/L (98-107) Carbon Dioxide Level 25 mmol/L (21-32) Anion Gap 8 (6-14) Blood Urea Nitrogen 24 mg/dL (8-26) Creatinine 1.0 mg/dL (0.7-1.3) Estimated GFR (Cockcroft-Gault) 74.3 Glucose Level 90 mg/dL (70-99) Calcium Level 8.5 mg/dL (8.5-10.1) Magnesium Level 2.1 mg/dL (1.8-2.4) Objective: Assessment: 1. Fever 2. Acute hypoxic respiratory failure with underlying chronic obstructive pulmonary disease. Covid 19 test negative x3 3. History of chronic obstructive pulmonary disease. 4. History of tobaccoism. 5. Leukocytosis and lactic acidosis. 6. Nonsustained ventricular tachycardia. A. fib with RVR 7. History of prostate cancer. 8. Thrombocytopenia 9. Right lower extremity swelling and pain Doppler negative for DVT 10. Pulmonary edema Plan: Plan of Care 1. Continue Zosyn /Zyvox( 12/11) 2. Continue doxycycline. f/u urine Legionella 3. Follow up labs and cultures. 4. Repeat Covid PCR neg at [facility] 4. Continue supportive care. Discussed with nursing staff. CAROLYN WOODALL MD Dec 12, 2020 07:55
--- NOTE | 2020-12-12 08:04 | PN ---
DATE: 12/12/2020 DAILY PROGRESS NOTE LOCATION: He is in room 256. SUBJECTIVE: This 70-year-old male remains hospitalized with acute hypoxic respiratory failure due to right upper lobe pneumonia on top of baseline COPD. He states he is feeling better; however, is quite weak and even having difficulties getting out of bed. OBJECTIVE: VITAL SIGNS: Stable. Temperature curve last 24 hours is much better. He remains on 2 liters per nasal cannula oxygen. CHEST: Ongoing rales, rhonchi, right upper lobe. HEART: Regular. ABDOMEN: Benign. LABORATORY DATA: Cultures are negative to date. Potassium is quite low at 2.8, this morning replacement has been ordered. IMPRESSION: 1. Acute hypoxic respiratory failure due to right upper lobe pneumonia on top of chronic obstructive pulmonary disease. 2. Leukocytosis, improved. 3. Lactic acidosis. 4. Atrial fibrillation with rapid ventricular response, controlled. 5. Prostate cancer. 6. Hypokalemia, being replaced. 7. Generalized weakness. PLAN: Add therapy. Replace potassium. Otherwise, continue present. JANEEN/JUN DR: Dez TID: [id number]
--- NOTE | 2020-12-12 08:05 | NUR ---
SPOKE TO COSTA AT DR OLMEDO'S OFFICE TO ASK FOR RETURN CALL TO NOTIFY OF POTASSIUM 2.8. PT ALSO COLLECTED A SPUTUM CX BUT I HAVE NO ORDERS FOR SPUTUM
[2020-12-12] MEDS: ALPRAZolam 0.5 MG TABLET PO SCH ×3 (09:00→20:39)
--- NOTE | 2020-12-12 09:08 | PDOC ---
PULMONARY PROGRESS NOTES DATE: 12/12/20 TIME: 09:08 Subjective No overnight events Patient feels better, now more short of breath. Vitals Vital Signs Date Time Temp Pulse Resp B/P (MAP) Pulse Ox O2 Delivery O2 Flow Rate FiO2 12/12/20 07:00 98.3 71 18 128/81 (97) 93 Nasal Cannula 3.0 98.3 ROS: No Nausea, No Chest Pain, No Abdominal Pain, No Increase Cough General: Alert Lungs: Crackles Cardiovascular: S1, S2 Abdomen: Soft, Non-tender Neuro Exam: Alert, Oriented Extremities: Other (Mild edema) Skin: Warm Labs Laboratory Tests Test 12/10/20 09:35 12/10/20 11:30 12/11/20 08:13 12/12/20 05:55 Coronavirus (COVID-19)(PCR) Negative (NEGATIVE) White Blood Count 8.1 x10^3/uL (4.0-11.0) Red Blood Count 4.18 x10^6/uL (4.30-5.70) Hemoglobin 13.1 g/dL (13.0-17.5) Hematocrit 38.4 % (39.0-53.0) Mean Corpuscular Volume 92 fL (79-100) Mean Corpuscular Hemoglobin 31 pg (25-35) Mean Corpuscular Hemoglobin Concent 34 g/dL (31-37) Red Cell Distribution Width 13.2 % (11.5-14.5) Platelet Count 136 x10^3/uL (140-400) Neutrophils (%) (Auto) 96 % (31-73) Lymphocytes (%) (Auto) 1 % (24-48) Monocytes (%) (Auto) 3 % (0-9) Eosinophils (%) (Auto) 0 % (0-3) Basophils (%) (Auto) 0 % (0-3) Neutrophils # (Auto) 7.8 x10^3/uL (1.8-7.7) Lymphocytes # (Auto) 0.0 x10^3/uL (1.0-4.8) Monocytes # (Auto) 0.2 x10^3/uL (0.0-1.1) Eosinophils # (Auto) 0.0 x10^3/uL (0.0-0.7) Basophils # (Auto) 0.0 x10^3/uL (0.0-0.2) Sodium Level 140 mmol/L (136-145) 135 mmol/L (136-145) Potassium Level 3.0 mmol/L (3.5-5.1) 2.8 mmol/L (3.5-5.1) Chloride Level 104 mmol/L (98-107) 102 mmol/L (98-107) Carbon Dioxide Level 26 mmol/L (21-32) 25 mmol/L (21-32) Anion Gap 10 (6-14) 8 (6-14) Blood Urea Nitrogen 17 mg/dL (8-26) 24 mg/dL (8-26) Creatinine 1.1 mg/dL (0.7-1.3) 1.0 mg/dL (0.7-1.3) Estimated GFR (Cockcroft-Gault) 66.6 74.3 Glucose Level 120 mg/dL (70-99) 90 mg/dL (70-99) Calcium Level 8.9 mg/dL (8.5-10.1) 8.5 mg/dL (8.5-10.1) Magnesium Level 1.7 mg/dL (1.8-2.4) 2.1 mg/dL (1.8-2.4) Glucose (Fingerstick) 92 mg/dL (70-99) Laboratory Tests Test 12/12/20 05:55 Sodium Level 135 mmol/L (136-145) Potassium Level 2.8 mmol/L (3.5-5.1) Chloride Level 102 mmol/L (98-107) Carbon Dioxide Level 25 mmol/L (21-32) Anion Gap 8 (6-14) Blood Urea Nitrogen 24 mg/dL (8-26) Creatinine 1.0 mg/dL (0.7-1.3) Estimated GFR (Cockcroft-Gault) 74.3 Glucose Level 90 mg/dL (70-99) Calcium Level 8.5 mg/dL (8.5-10.1) Magnesium Level 2.1 mg/dL (1.8-2.4) Medications Active Scripts Medications Dose Route/Sig Max Daily Dose Days Date Category Metoprolol Tartrate 25 Mg Tablet 12.5 Mg PO BID 30 08/10/19 Rx Vitamin B12 (Cyanocobalamin (Vitamin B-12)) 5,000 Mcg Tab.rapdis 1,000 Mcg PO DAILY 08/10/19 Reported Aspirin 325 Mg Tablet 325 Mg PO DAILY PRN 90 02/06/19 Reported Doxazosin Mesylate 4 Mg Tablet 1 Tab PO HS 02/10/14 Reported Finasteride 5 Mg Tablet 1 Tab PO DAILY 02/10/14 Reported Alprazolam 0.5 Mg Tablet 1 Tab PO TID 02/10/14 Reported Viagra (Sildenafil Citrate) 50 Mg Tablet 1 Tab PO UD 02/10/14 Reported Pravastatin Sodium 40 Mg Tablet 1 Tab PO DAILY 02/10/14 Reported Impression . 1. Acute hypoxic respiratory failure multifactorial 2. Underlying suspected severe chronic obstructive pulmonary disease from 50 years of tobacco use. 3. Abnormal chest x-ray with right upper lobe interstitial infiltrates. 4. Nonsustained ventricular tachycardia in the emergency room, did not require cardioversion. Follow cardiology 5. Atrial fibrillation with rapid ventricular response. Per cardiology 6. Fever, follow-up on cultures 7. SARS-CoV-2 negative x3 including PCR Plan . Updated 12/12 Continue antibiotics per ID PCR negative from [facility] for Legionella pending Follow-up cultures Follow cardiology input Off of steroids and remdesivir Rule out C. difficile Updated 12/11 Antibiotics per ID Serology for Legionella pending Repeat Covid PCR negative from [facility] Follow-up on cultures Follow cardiology input Discontinue steroid Discontinue remdesivir AINSLEY ST MD Dec 12, 2020 09:08
[2020-12-12] MEDS: DOXYCYCLINE HYCLATE 100 MG TABLET PO SCH ×2 (10:18→20:37)
[2020-12-12] MEDS: ASPIRIN ENTERIC COATED 81 MG TABLET.DR. PO SCH (10:18)
[2020-12-12] MEDS: IPRATROPIUM/ALBUTEROL 20/100mcg/INH INHALER. INH SCH ×4 (10:18→20:00)
[2020-12-12] MEDS: AMIODARONE HCL 200 MG TABLET. PO SCH (10:19)
[2020-12-12] MEDS: LACTOBACILLUS RHAMNOSUS GG 1 CAPSULE. PO SCH ×2 (10:19→20:36)
[2020-12-12] MEDS: FINASTERIDE 5 MG TABLET. PO SCH (10:19)
[2020-12-12] MEDS: POTASSIUM CHLORIDE 20 MEQ TABLET.ER. PO SCH ×3 (10:19→20:37)
[2020-12-12] MEDS: METOPROLOL TART IMMED RELEASE 50 MG TABLET. PO SCH ×2 (10:20→20:38)
[2020-12-12] MEDS: LINEZOLID 600 MG TABLET PO SCH ×2 (10:20→20:37)
--- NOTE | 2020-12-12 10:36 | RAD ---
Examination: CT chest without contrast HISTORY: History of fever, dyspnea for pulmonary infiltrate COMPARISON: 08/10/2019 TECHNIQUE: Axial CT images of the chest were performed without contrast. Coronal and sagittal reforma ts are performed. Exposure: One or more of the following individualized dose reduction techniques were utilized for thi s examination: 1. Automated exposure control 2. Adjustment of the mA and/or kV according to patient size 3. Use of iterative reconstruction technique FINDINGS: The visualized thyroid gland grossly appears unremarkable. Small mediastinal lymph nodes identified i n the pretracheal region similar to prior exam. Coronary artery calcifications identified Small right pleural effusion identified. There is interval development of diffuse groundglass consolidation changes with airspace opacities an d air bronchograms in the right upper lobe of the lung. There is a focus of groundglass airspace opac ity identified in the left upper lobe of the lung. The spleen, adrenals grossly appears unremarkable. The gallbladder is mildly distended. There is a 1. 9 cm hypodensity identified in the left lobe of the liver similar to prior exam from 2014. There is a 1.7 cm nodule identified in the right adrenal gland measuring 1 Hounsfield unit likely a lipid rich adrenal adenoma unchanged. Mild degenerative changes thoracic spine. IMPRESSION: 1. Interval development of diffuse groundglass consolidation changes with airspace opacities and air bronchograms in the right upper lobe of the lung likely pneumonia.There is a focus of groundglass ai rspace opacity identified in the left upper lobe of the lung likely infiltrates. Follow-up to resolut ion. 2. Small right pleural effusion. 3. Coronary artery calcifications. 4. 1.9 cm hypodensity identified in the left lobe of the liver similar to prior exam from 2014. Electronically signed by: Jacob Kc MD (12/12/2020 10:34 AM) [id number]
--- NOTE | 2020-12-12 10:54 | NUR ---
PAGED DR ST AT [phone] TO ASK ABOUT POSSIBLE SPUTUM CX. PT HAS HAD SPECIMEN CUP SITTING IN HIS ROOM BUT NO ORDERS FOR SPECIMEN.
--- NOTE | 2020-12-12 10:59 | PDOC ---
CARDIO Progress Notes Date and Time Date of Service 12/12/20 Time of Evaluation 1045 Subjective Subjective: No Chest Pain, No Palpitations, Other (breathing improved ) Vitals Vitals Vital Signs Date Time Temp Pulse Resp B/P (MAP) Pulse Ox O2 Delivery O2 Flow Rate FiO2 12/12/20 10:20 71 128/81 12/12/20 07:00 98.3 18 93 Nasal Cannula 3.0 98.3 Weight Weight [ ] Input and Output Intake and Output Intake and Output 12/12/20 07:00 Intake Total 400 ml Output Total 450 ml Balance -50 ml Intake Oral 400 ml Output Urine Total 450 ml # Bowel Movements 2 Laboratory Labs Laboratory Tests Test 12/12/20 05:55 Sodium Level 135 mmol/L (136-145) Potassium Level 2.8 mmol/L (3.5-5.1) Chloride Level 102 mmol/L (98-107) Carbon Dioxide Level 25 mmol/L (21-32) Anion Gap 8 (6-14) Blood Urea Nitrogen 24 mg/dL (8-26) Creatinine 1.0 mg/dL (0.7-1.3) Estimated GFR (Cockcroft-Gault) 74.3 Glucose Level 90 mg/dL (70-99) Calcium Level 8.5 mg/dL (8.5-10.1) Magnesium Level 2.1 mg/dL (1.8-2.4) Microbiology Micro Microbiology 12/08/20 Blood Culture - Preliminary, Resulted NO GROWTH AFTER 3 DAYS Physical Exam HEENT: Neck Supple W Full Motion Chest: Symmetric LUNGS: Other (NC, diminished bases) Heart: RRR (SR) Abdomen: Soft N/T Extremities: Other (trace pedal edema ) Neurology: alert, oriented, follow commands Assessment Assessment 1. Acute respiratory failure with PNA and CHF; rapid and PCR COVID negative. 2. Acute on chronic diastolic CHF; improved with diuresis 3. Arrhythmia; EKG with probable SVT with aberrancy vs VT. Echo 02/03 with preserved LV systolic function 4. PAFIB with RVR; converted back to SR 5. Elevated troponin; peak 0.135. Most probably type II, demand ischemia. CP free 6. Hypokalemia, hypomagnesemia; being replaced 7. Hypertension; controlled 8. CAD s/p PCI/stent about 10 years ago. 9. Hyperlipidemia; statin 10. YE; resolved 11. Leukocytosis, lactic acidosis, ongoing fevers Recommendations Continue Amiodarone for rhythm maintenance Metoprolol for rate control ASA therapy Outpatient event monitor to guide therapy. Secondary prevention measures Ongoing lung optimization, treatment of PNA Further ischemic evaluation on an outpatient basis Supportive care Justicifation of Admission Dx: Justifications for Admission: Justification of Admission Dx: Yes JOSUE GREEN APRN Dec 12, 2020 10:58
[2020-12-12 11:31] VITALS: BP 98/66
--- NOTE | 2020-12-12 12:15 | NUR ---
SS following up with discharge planning. SS reviewed pt chart and discussed with pt RN. Pt is currently requiring oxygen at three liters nasal canula. Pt has no home oxygen. COVID19 negative. Loose stools today. Pt on IV Zosyn, PO Zyvox, and PO Doxycycline. PT/OT ordered. Pt and family want pt to return to home with sister and home healthcare services. SS will continue to follow for discharge planning.
--- NOTE | 2020-12-12 14:27 | NUR ---
XANAX DOSES HELD TODAY TO ALLOW PT TO BE MORE ALERT FOR THERAPY AND UP IN CHAIR. PT SLEPT MOST OF THE DAY YESTERDAY. PT IS AGREEABLE.
--- NOTE | 2020-12-12 14:42 | NUR ---
PER DR ST - NO NEED FOR SPUTUM SAMPLE.
[2020-12-12 15:24] VITALS: BP 105/68
[2020-12-12 18:44] VITALS: BP 111/65
[2020-12-12] MEDS: ATORVASTATIN CALCIUM 40 MG TABLET. PO SCH (20:37)
[2020-12-12] MEDS: DOXAZOSIN MESYLATE 4 MG TABLET. PO SCH (20:37)
[2020-12-12 23:00] VITALS: BP 123/73
[2020-12-13 03:00] VITALS: BP 139/78
[2020-12-13] MEDS: PIPERACILLIN/TAZOBACTAM 3.375 GM in IV NORMAL SALINE 50ML 50 ML IV SCH ×4 (05:22→23:45)
[2020-12-13 07:00] VITALS: BP 132/80
[2020-12-13 07:30] LABS: CALCIUM 8.6 mg/dL (8.5-10.1); CREATININE 0.9 mg/dL (0.7-1.3); GFR 83.9
--- NOTE | 2020-12-13 07:35 | PDOC ---
Infectious Disease Note Subjective: Subjective Pt feels better Afebrile last 24 hrs on 3 L O2 by nasal cannula Vital Signs: Vital Signs Vital Signs Date Time Temp Pulse Resp B/P (MAP) Pulse Ox O2 Delivery O2 Flow Rate FiO2 12/13/20 03:00 98.2 59 20 139/78 (98) 95 Nasal Cannula 3.0 98.2 Physical Exam: PHYSICAL EXAM GENERAL: Alert, oriented x 3 male in no acute distress. HEENT: Normocephalic, atraumatic. Anicteric. No thrush. Oral mucosa moist. NECK: Supple, no JVD. LUNGS: Coarse breath sounds. HEART: S1, S2 irregular. Tachycardia ABDOMEN: Soft, nontender, nondistended. Meier in place EXTREMITIES: No edema or cyanosis DERMATOLOGIC: Warm, dry, no generalized rash. NEUROLOGIC: Alert and oriented x 3, grossly nonfocal. PSYCHIATRIC: Calm and cooperative. Medications: Inpatient Meds: Medications reviewed. Labs: Lab Laboratory Tests Test 12/13/20 06:35 Sodium Level 138 mmol/L (136-145) Potassium Level 3.0 mmol/L (3.5-5.1) Chloride Level 105 mmol/L (98-107) Carbon Dioxide Level 26 mmol/L (21-32) Anion Gap 7 (6-14) Blood Urea Nitrogen 17 mg/dL (8-26) Creatinine 0.9 mg/dL (0.7-1.3) Estimated GFR (Cockcroft-Gault) 83.9 Glucose Level 84 mg/dL (70-99) Calcium Level 8.6 mg/dL (8.5-10.1) Objective: Assessment: 1. Fever improved 2. Acute hypoxic respiratory failure with underlying chronic obstructive pulmonary disease. Covid [address] chest reviewed 3. History of chronic obstructive pulmonary disease. 4. History of tobaccoism. 5. Leukocytosis and lactic acidosis. 6. Nonsustained ventricular tachycardia. A. fib with RVR 7. History of prostate cancer. 8. Thrombocytopenia 9. Right lower extremity swelling and pain Doppler negative for DVT 10. Pulmonary edema Plan: Plan of Care 1. Continue Zosyn . Cont Zyvox( 12/11) 2. Continue doxycycline. urine Legionella neg 3. Follow up labs and cultures. 4. Continue supportive care. Discussed with nursing staff. CAROLYN WOODALL MD Dec 13, 2020 07:35
--- NOTE | 2020-12-13 08:37 | PDOC ---
PULMONARY PROGRESS NOTES DATE: 12/13/20 TIME: 08:37 Subjective Remains on NC afebrile feeling much better today Vitals Vital Signs Date Time Temp Pulse Resp B/P (MAP) Pulse Ox O2 Delivery O2 Flow Rate FiO2 12/13/20 08:00 Nasal Cannula 3.0 12/13/20 03:00 98.2 59 20 139/78 (98) 95 98.2 ROS: No Nausea, No Chest Pain, No Abdominal Pain, No Increase Cough General: Alert Lungs: Clear Cardiovascular: S1, S2 Abdomen: Soft, Non-tender Neuro Exam: Alert, Oriented Extremities: Other (Mild edema) Skin: Warm Labs Laboratory Tests Test 12/12/20 05:55 12/13/20 06:35 Sodium Level 135 mmol/L (136-145) 138 mmol/L (136-145) Potassium Level 2.8 mmol/L (3.5-5.1) 3.0 mmol/L (3.5-5.1) Chloride Level 102 mmol/L (98-107) 105 mmol/L (98-107) Carbon Dioxide Level 25 mmol/L (21-32) 26 mmol/L (21-32) Anion Gap 8 (6-14) 7 (6-14) Blood Urea Nitrogen 24 mg/dL (8-26) 17 mg/dL (8-26) Creatinine 1.0 mg/dL (0.7-1.3) 0.9 mg/dL (0.7-1.3) Estimated GFR (Cockcroft-Gault) 74.3 83.9 Glucose Level 90 mg/dL (70-99) 84 mg/dL (70-99) Calcium Level 8.5 mg/dL (8.5-10.1) 8.6 mg/dL (8.5-10.1) Magnesium Level 2.1 mg/dL (1.8-2.4) Laboratory Tests Test 12/13/20 06:35 Sodium Level 138 mmol/L (136-145) Potassium Level 3.0 mmol/L (3.5-5.1) Chloride Level 105 mmol/L (98-107) Carbon Dioxide Level 26 mmol/L (21-32) Anion Gap 7 (6-14) Blood Urea Nitrogen 17 mg/dL (8-26) Creatinine 0.9 mg/dL (0.7-1.3) Estimated GFR (Cockcroft-Gault) 83.9 Glucose Level 84 mg/dL (70-99) Calcium Level 8.6 mg/dL (8.5-10.1) Medications Active Scripts Medications Dose Route/Sig Max Daily Dose Days Date Category Metoprolol Tartrate 25 Mg Tablet 12.5 Mg PO BID 30 08/10/19 Rx Vitamin B12 (Cyanocobalamin (Vitamin B-12)) 5,000 Mcg Tab.rapdis 1,000 Mcg PO DAILY 08/10/19 Reported Aspirin 325 Mg Tablet 325 Mg PO DAILY PRN 90 02/06/19 Reported Doxazosin Mesylate 4 Mg Tablet 1 Tab PO HS 02/10/14 Reported Finasteride 5 Mg Tablet 1 Tab PO DAILY 02/10/14 Reported Alprazolam 0.5 Mg Tablet 1 Tab PO TID 02/10/14 Reported Viagra (Sildenafil Citrate) 50 Mg Tablet 1 Tab PO UD 02/10/14 Reported Pravastatin Sodium 40 Mg Tablet 1 Tab PO DAILY 02/10/14 Reported Impression . 1. Acute hypoxic respiratory failure multifactorial 2. Underlying suspected severe chronic obstructive pulmonary disease from 50 years of tobacco use. 3. Abnormal chest x-ray with right upper lobe interstitial infiltrates. 4. Nonsustained ventricular tachycardia in the emergency room, did not require cardioversion. Follow cardiology 5. Atrial fibrillation with rapid ventricular response. Per cardiology 6. Fever, follow-up on cultures 7. SARS-CoV-2 negative x3 including PCR Plan . Updated 12/13/20 Continue supplemental oxygen to keep sats above 92% Follow ID recs for ABX Follow Cultures NGTD Follow Cardiology recs DVT/GI PPX D/W RN Updated 12/12 Continue antibiotics per ID PCR negative from [facility] for Legionella pending Follow-up cultures Follow cardiology input Off of steroids and remdesivir Rule out C. difficile Updated 12/11 Antibiotics per ID Serology for Legionella pending Repeat Covid PCR negative from [facility] Follow-up on cultures Follow cardiology input Discontinue steroid Discontinue remdesivir AINSLEY ST MD Dec 13, 2020 08:37
[2020-12-13] MEDS: ALPRAZolam 0.5 MG TABLET PO SCH ×3 (09:00→20:50)
--- NOTE | 2020-12-13 09:50 | PN ---
DATE: 12/13/2020 LOCATION: He is in room 256. SUBJECTIVE: This 70-year-old male remains hospitalized with acute hypoxic respiratory failure due to right upper lobe pneumonia on top of baseline COPD. He is gradually feeling better, but is extremely weak. He did actually pretty well in rehab yesterday and they are recommending acute rehabilitation at discharge. OBJECTIVE: VITAL SIGNS: Stable. He has been afebrile for the last 24 hours. He remains on 2 liters per nasal cannula oxygen. CHEST: With decreased rales and rhonchi to right upper lobe. HEART: Regular. ABDOMEN: Benign. Cultures are negative to date. Potassium this morning is 3 and we will continue replacement of the same and follow the same. IMPRESSION: 1. Acute hypoxic respiratory failure due to right upper lobe pneumonia on top of chronic obstructive pulmonary disease. 2. Leukocytosis, improved. 3. Atrial fibrillation with rapid ventricular response, converted. 4. Prostate cancer. 5. Hypokalemia, being replaced. 6. Generalized weakness. PLAN: Continue therapy. I will speak with him about acute rehabilitation. Potassium replacement is ongoing and we will follow electrolytes. BAKARI GRACIA: Dez TID: [id number]
[2020-12-13] MEDS: LACTOBACILLUS RHAMNOSUS GG 1 CAPSULE. PO SCH ×2 (10:49→20:50)
[2020-12-13] MEDS: ASPIRIN ENTERIC COATED 81 MG TABLET.DR. PO SCH (10:50)
[2020-12-13] MEDS: METOPROLOL TART IMMED RELEASE 50 MG TABLET. PO SCH ×2 (10:50→20:50)
[2020-12-13] MEDS: LINEZOLID 600 MG TABLET PO SCH ×2 (10:50→20:49)
[2020-12-13] MEDS: AMIODARONE HCL 200 MG TABLET. PO SCH (10:50)
[2020-12-13] MEDS: FINASTERIDE 5 MG TABLET. PO SCH (10:50)
[2020-12-13] MEDS: DOXYCYCLINE HYCLATE 100 MG TABLET PO SCH ×2 (10:50→20:50)
[2020-12-13] MEDS: IPRATROPIUM/ALBUTEROL 20/100mcg/INH INHALER. INH SCH ×4 (10:51→20:00)
[2020-12-13] MEDS: POTASSIUM CHLORIDE 20 MEQ TABLET.ER. PO SCH ×3 (10:51→17:51)
--- NOTE | 2020-12-13 10:58 | PDOC ---
CARDIO Progress Notes Date and Time Date of Service 12/13/2020 Time of Evaluation 1040 Subjective Subjective: No Chest Pain, No shortness of breath, No Palpitations, Other (breathing improved ) Vitals Vitals Vital Signs Date Time Temp Pulse Resp B/P (MAP) Pulse Ox O2 Delivery O2 Flow Rate FiO2 12/13/20 08:00 Nasal Cannula 3.0 12/13/20 07:00 98.0 70 20 132/80 (97) 95 98.0 Weight Weight [ ] Input and Output Intake and Output Intake and Output 12/13/20 07:00 Intake Total 550 ml Output Total 550 ml Balance 0 ml Intake Oral 400 ml IV Total 150 ml Output Urine Total 550 ml # Bowel Movements 4 Laboratory Labs Laboratory Tests Test 12/13/20 06:35 Sodium Level 138 mmol/L (136-145) Potassium Level 3.0 mmol/L (3.5-5.1) Chloride Level 105 mmol/L (98-107) Carbon Dioxide Level 26 mmol/L (21-32) Anion Gap 7 (6-14) Blood Urea Nitrogen 17 mg/dL (8-26) Creatinine 0.9 mg/dL (0.7-1.3) Estimated GFR (Cockcroft-Gault) 83.9 Glucose Level 84 mg/dL (70-99) Calcium Level 8.6 mg/dL (8.5-10.1) Microbiology Micro Microbiology 12/08/20 Blood Culture - Preliminary, Resulted NO GROWTH AFTER 4 DAYS Physical Exam HEENT: Neck Supple W Full Motion Chest: Symmetric LUNGS: Other (NC, diminished bases) Heart: RRR (SR) Abdomen: Soft N/T Extremities: Other (trace pedal edema ) Neurology: alert, oriented, follow commands Assessment Assessment 1. Acute respiratory failure with PNA and CHF; rapid and PCR COVID negative. 2. Acute on chronic diastolic CHF; improved with diuresis 3. Arrhythmia; EKG with probable SVT with aberrancy vs VT. Echo 02/03 with preserved LV systolic function 4. PAFIB with RVR; maintaining SR 5. Elevated troponin; peak 0.135. Most probably type II, demand ischemia. CP free 6. Hypokalemia 7. Hypertension; controlled 8. CAD s/p PCI/stent about 10 years ago. 9. Hyperlipidemia; statin 10. YE; resolved 11. Leukocytosis, lactic acidosis, ongoing fevers Recommendations Continue Amiodarone for rhythm maintenance. Replace K Metoprolol for rate control ASA therapy Outpatient event monitor to guide therapy. Secondary prevention measures Ongoing lung optimization, treatment of PNA Further ischemic evaluation on an outpatient basis TTE today Supportive care Justicifation of Admission Dx: Justifications for Admission: Justification of Admission Dx: Yes [employer] Dec 13, 2020 10:58
[2020-12-13 11:00] VITALS: BP 138/72
--- NOTE | 2020-12-13 14:24 | NUR ---
SS following up with discharge planning. SS reviewed pt chart and discussed with pt RN. Pt is currently requiring oxygen at three liters nasal canula. Pt has no home oxygen. Pt on IV Zosyn. COVID19 negative. PT/OT recommended acute rehabilitation. Pt declining acute rehabilitation at this time stating that he would like to return to home with his sister and home healthcare services. SS will continue to follow for discharge planning.
[2020-12-13 15:00] VITALS: BP 132/78
--- NOTE | 2020-12-13 17:06 | CARD ---
MR#: [id number] Date of Study: 12/13/2020 Ordering Physician: HELDER ENCARNACION, Referring Physician: HELDER ENCARNACION, Tech: Olga Foreman Jocelyne, [facility] APPROVED REPORT EXAM: Two-dimensional and M-mode echocardiogram with Doppler and color Doppler. Other Information Quality : AverageHR: 64bpm INDICATION Atrial Fibrillation 2D DIMENSIONS RVDd3.3 (2.9-3.5cm)Left Atrium(2D)3.6 (1.6-4.0cm) IVSd1.1 (0.7-1.1cm)Aortic Root(2D)3.5 (2.0-3.7cm) LVDd5.0 (3.9-5.9cm)LVOT Diameter2.1 (1.8-2.4cm) PWd1.1 (0.7-1.1cm)LVDs3.1 (2.5-4.0cm) FS (%) 38.0 %SV81.3 ml Aortic Valve AoV Peak Shaheed.233.4cm/sAoV VTI41.2cm AO Peak GR.21.8mmHgLVOT VTI 16.55cm AO Mean GR.11mmHgAI P 1/2 Uies089tv Mitral Valve MV E Peyecyru82.6cm/sMV DECEL [id number] MV A Wfsokhov04.3cm/sE/A Ratio1.0 TDI Lateral E' P. V6.44cm/sMedial E' P. V6.18cm/s E/Lateral E'10.8E/Medial E'11.3 Tricuspid Valve TR P. Lruapmqz232eb/sRAP CAIAZQIB2yoHi TR Peak Gr.87vbPvKYFQ87sbFn LEFT VENTRICLE The left ventricle is normal size. There is mild concentric left ventricular hypertrophy. The left ve ntricular systolic function is normal and the ejection fraction is within normal range. The Ejection Fraction is 55-60%. There is normal LV segmental wall motion. Transmitral Doppler flow pattern is Gra de II-pseudonormal filling dynamics. RIGHT VENTRICLE The right ventricle is normal size. There is normal right ventricular wall thickness. The right ventr icular systolic function is normal. ATRIA The left atrium size is normal. The right atrium size is normal. The interatrial septum is intact wit h no evidence for an atrial septal defect or patent foramen ovale as noted on 2-D or Doppler imaging. AORTIC VALVE The aortic valve is not well visualized. Doppler and Color Flow revealed trace aortic regurgitation. There is no significant aortic valvular stenosis. Calculated aortic valve area is 1.45 cm2 with maxim um pressure gradient of 22 mmHg and mean pressure gradient of 13 mmHg. MITRAL VALVE The mitral valve is normal in structure and function. There is no evidence of mitral valve prolapse. There is no mitral valve stenosis. Doppler and Color-flow revealed trace mitral regurgitation. TRICUSPID VALVE The tricuspid valve is normal in structure and function. Doppler and Color Flow revealed trace tricus pid regurgitation with an estimated PAP of 33 mmHg. There is no tricuspid valve stenosis. PULMONIC VALVE The pulmonic valve is not well visualized. Doppler and Color Flow revealed no pulmonic valvular regur gitation. GREAT VESSELS The aortic root is normal in size. The IVC is normal in size and collapses >50% with inspiration. PERICARDIAL EFFUSION There is no evidence of significant pericardial effusion. Critical Notification Critical Value: No <Conclusion> The left ventricle is normal size. The left ventricular systolic function is normal and the ejection fraction is within normal range. The Ejection Fraction is 55-60%. There is mild concentric left ventricular hypertrophy. Doppler and Color Flow revealed trace aortic regurgitation. There is no significant aortic valvular stenosis. Doppler and Color-flow revealed trace mitral regurgitation. Doppler and Color Flow revealed trace tricuspid regurgitation with an estimated PAP of 33 mmHg. Signed by : Praveen Jean MD Electronically Approved : 12/13/2020 17:05:46
[2020-12-13] MEDS: DOXAZOSIN MESYLATE 4 MG TABLET. PO SCH (20:49)
[2020-12-13] MEDS: ATORVASTATIN CALCIUM 40 MG TABLET. PO SCH (20:50)
[2020-12-13 22:29] VITALS: BP 162/85
[2020-12-14 02:39] VITALS: BP 164/88
[2020-12-14] MEDS: PIPERACILLIN/TAZOBACTAM 3.375 GM in IV NORMAL SALINE 50ML 50 ML IV SCH (05:37)
[2020-12-14 07:00] VITALS: BP 138/93
[2020-12-14] MEDS: POTASSIUM CHLORIDE 20 MEQ TABLET.ER. PO SCH ×3 (08:39→17:00)
[2020-12-14] MEDS: DOXYCYCLINE HYCLATE 100 MG TABLET PO SCH ×2 (08:39→21:23)
[2020-12-14] MEDS: FINASTERIDE 5 MG TABLET. PO SCH (08:39)
[2020-12-14] MEDS: ASPIRIN ENTERIC COATED 81 MG TABLET.DR. PO SCH (08:40)
[2020-12-14] MEDS: LINEZOLID 600 MG TABLET PO SCH (08:40)
[2020-12-14] MEDS: AMIODARONE HCL 200 MG TABLET. PO SCH (08:40)
[2020-12-14] MEDS: METOPROLOL TART IMMED RELEASE 50 MG TABLET. PO SCH ×2 (08:40→21:23)
[2020-12-14] MEDS: LACTOBACILLUS RHAMNOSUS GG 1 CAPSULE. PO SCH ×2 (08:40→21:23)
[2020-12-14] MEDS: IPRATROPIUM/ALBUTEROL 20/100mcg/INH INHALER. INH SCH ×4 (08:41→21:28)
[2020-12-14 08:42] LABS: CALCIUM 8.2 mg/dL (8.5-10.1); CREATININE 0.8 mg/dL (0.7-1.3); GFR 96.1
[2020-12-14] MEDS: ALPRAZolam 0.5 MG TABLET PO SCH (08:42)
[2020-12-14 08:44] LABS: POTASSIUM 2.9 mmol/L (3.5-5.1)
--- NOTE | 2020-12-14 08:50 | PDOC ---
Provider Note Date of Service: DATE: 12/14/20 TIME: 08:48 Provider Note vss, no temp- K+ 3.0, urine legionella + , will add azith in place of doxy re same, rest same Justifications for Admission Other Justification GARCÍA RICKS MD Dec 14, 2020 08:50
--- NOTE | 2020-12-14 09:13 | PDOC ---
PULMONARY PROGRESS NOTES DATE: 12/14/20 TIME: 09:13 Subjective Remains on NC afebrile no SOA or cough Vitals Vital Signs Date Time Temp Pulse Resp B/P (MAP) Pulse Ox O2 Delivery O2 Flow Rate FiO2 12/14/20 08:40 67 138/93 12/14/20 08:05 Nasal Cannula 2.0 12/14/20 07:00 98.5 20 96 98.5 ROS: No Nausea, No Chest Pain, No Abdominal Pain, No Increase Cough General: Alert, Oriented X4 Lungs: Clear Cardiovascular: S1, S2 Abdomen: Soft, Non-tender Neuro Exam: Alert, Oriented Extremities: Other (Mild edema) Skin: Warm Labs Laboratory Tests Test 12/12/20 10:45 12/13/20 06:35 12/14/20 07:55 Urine Legionella Antigen Positive (Negative) Sodium Level 138 mmol/L (136-145) 140 mmol/L (136-145) Potassium Level 3.0 mmol/L (3.5-5.1) 2.9 mmol/L (3.5-5.1) Chloride Level 105 mmol/L (98-107) 107 mmol/L (98-107) Carbon Dioxide Level 26 mmol/L (21-32) 25 mmol/L (21-32) Anion Gap 7 (6-14) 8 (6-14) Blood Urea Nitrogen 17 mg/dL (8-26) 11 mg/dL (8-26) Creatinine 0.9 mg/dL (0.7-1.3) 0.8 mg/dL (0.7-1.3) Estimated GFR (Cockcroft-Gault) 83.9 96.1 Glucose Level 84 mg/dL (70-99) 91 mg/dL (70-99) Calcium Level 8.6 mg/dL (8.5-10.1) 8.2 mg/dL (8.5-10.1) Laboratory Tests Test 12/14/20 07:55 Sodium Level 140 mmol/L (136-145) Potassium Level 2.9 mmol/L (3.5-5.1) Chloride Level 107 mmol/L (98-107) Carbon Dioxide Level 25 mmol/L (21-32) Anion Gap 8 (6-14) Blood Urea Nitrogen 11 mg/dL (8-26) Creatinine 0.8 mg/dL (0.7-1.3) Estimated GFR (Cockcroft-Gault) 96.1 Glucose Level 91 mg/dL (70-99) Calcium Level 8.2 mg/dL (8.5-10.1) Medications Active Scripts Medications Dose Route/Sig Max Daily Dose Days Date Category Metoprolol Tartrate 25 Mg Tablet 12.5 Mg PO BID 30 08/10/19 Rx Vitamin B12 (Cyanocobalamin (Vitamin B-12)) 5,000 Mcg Tab.rapdis 1,000 Mcg PO DAILY 08/10/19 Reported Aspirin 325 Mg Tablet 325 Mg PO DAILY PRN 90 02/06/19 Reported Doxazosin Mesylate 4 Mg Tablet 1 Tab PO HS 02/10/14 Reported Finasteride 5 Mg Tablet 1 Tab PO DAILY 02/10/14 Reported Alprazolam 0.5 Mg Tablet 1 Tab PO TID 02/10/14 Reported Viagra (Sildenafil Citrate) 50 Mg Tablet 1 Tab PO UD 02/10/14 Reported Pravastatin Sodium 40 Mg Tablet 1 Tab PO DAILY 02/10/14 Reported Impression . 1. Acute hypoxic respiratory failure multifactorial 2. Underlying suspected severe chronic obstructive pulmonary disease from 50 years of tobacco use. 3. Abnormal chest x-ray with right upper lobe interstitial infiltrates. 4. Nonsustained ventricular tachycardia in the emergency room, did not require cardioversion. Follow cardiology 5. Atrial fibrillation with rapid ventricular response. Per cardiology 6. Fever, follow-up on cultures 7. SARS-CoV-2 negative x3 including PCR 8. legionella positive Plan . Updated 12/14/20 Continue supplemental oxygen to keep sats above 92%, on 3 liters NC Follow ID recs for ABX : DC azithro and restart doxy legionella positive Replace KCL HTN per PCP and Cardiology Follow Cardiology recs DVT/GI PPX D/W RN Ok to discharge from our stand point Updated 12/13/20 Continue supplemental oxygen to keep sats above 92% Follow ID recs for ABX Follow Cultures NGTD Follow Cardiology recs DVT/GI PPX D/W RN Updated 12/12 Continue antibiotics per ID PCR negative from [facility] for Legionella pending Follow-up cultures Follow cardiology input Off of steroids and remdesivir Rule out C. difficile Updated 12/11 Antibiotics per ID Serology for Legionella pending Repeat Covid PCR negative from [facility] Follow-up on cultures Follow cardiology input Discontinue steroid Discontinue remdesivir AINSLEY ST MD Dec 14, 2020 09:13
--- NOTE | 2020-12-14 09:56 | PDOC ---
Infectious Disease Note Subjective: Subjective Pt feels better Afebrile last 48 hrs on 2 L O2 by nasal cannula Vital Signs: Vital Signs Vital Signs Date Time Temp Pulse Resp B/P (MAP) Pulse Ox O2 Delivery O2 Flow Rate FiO2 12/14/20 08:40 67 138/93 12/14/20 08:05 Nasal Cannula 2.0 12/14/20 07:00 98.5 20 96 98.5 Physical Exam: PHYSICAL EXAM GENERAL: Alert, oriented x 3 male in no acute distress. HEENT: Normocephalic, atraumatic. Anicteric. No thrush. Oral mucosa moist. NECK: Supple, no JVD. LUNGS: Coarse breath sounds. HEART: S1, S2 irregular. Tachycardia ABDOMEN: Soft, nontender, nondistended. Meier in place EXTREMITIES: No edema or cyanosis DERMATOLOGIC: Warm, dry, no generalized rash. NEUROLOGIC: Alert and oriented x 3, grossly nonfocal. PSYCHIATRIC: Calm and cooperative. Medications: Inpatient Meds: Medications reviewed. Labs: Lab Laboratory Tests Test 12/14/20 07:55 Sodium Level 140 mmol/L (136-145) Potassium Level 2.9 mmol/L (3.5-5.1) Chloride Level 107 mmol/L (98-107) Carbon Dioxide Level 25 mmol/L (21-32) Anion Gap 8 (6-14) Blood Urea Nitrogen 11 mg/dL (8-26) Creatinine 0.8 mg/dL (0.7-1.3) Estimated GFR (Cockcroft-Gault) 96.1 Glucose Level 91 mg/dL (70-99) Calcium Level 8.2 mg/dL (8.5-10.1) Objective: Assessment: Legionella pneumonia 1. Fever improved 2. Acute hypoxic respiratory failure with underlying chronic obstructive pulmonary disease. Covid [address] chest reviewed 3. History of chronic obstructive pulmonary disease. 4. History of tobaccoism. 5. Leukocytosis and lactic acidosis. 6. Nonsustained ventricular tachycardia. A. fib with RVR 7. History of prostate cancer. 8. Thrombocytopenia 9. Right lower extremity swelling and pain Doppler negative for DVT 10. Pulmonary edema Plan: Plan of Care Patient was started on azithromycin this a.m. but will discontinue due to VT/SVT on amiodarone Restart doxycycline DC Zosyn and Zyvox Monitor labs Continue supportive care. D/W RN WOODALL,ARUNDHATI S MD Dec 14, 2020 09:55
[2020-12-14] MEDS ORDERED: POTASSIUM CHLORIDE 20 MEQ TABLET.ER. PO ONE (10:00)
[2020-12-14 10:19] VITALS: BP 150/75
[2020-12-14] MEDS: HYDROcodone/APAP 5/325MG 1 TAB TABLET PO PRN ×2 (10:38→19:11)
--- NOTE | 2020-12-14 10:42 | PN ---
DATE: 12/14/2020 SUBJECTIVE: The patient is resting, slightly propped up in bed, in no apparent distress. On questioning him, he denied any complaint. The nursing staff did not voice any concerns, stated that he has generally uneventful night. PHYSICAL EXAMINATION: GENERAL: When I examined him, he looked pale, not jaundiced or cyanosed. No lymphadenopathy, no thyromegaly, no jugular venous distention, but mild bilateral lower limb edema. VITAL SIGNS: His heart rate was 67, blood pressure is 138/93, temperature was 98.5, respiratory rate 20 and oxygen saturation was 96% on 3 liters of oxygen. HEAD, EYES, EARS, NOSE AND THROAT: Normocephalic, atraumatic. NECK: Supple. HEART: Normal first and second heart sounds, no gallop or murmur. CHEST: Shows central trachea, equally reduced expansion, reduced air entry, vesicular breath sounds with bilateral scattered rhonchi. I could not appreciate any crepitation. ABDOMEN: Slightly distended, soft, nontender. NEUROLOGIC: He was grossly intact. His intake over the last 24 hours was 400, output was 550. LABORATORY DATA: His most recent white cell count was 8100, hemoglobin 13, hematocrit 38, MCV 92 and platelet count of 136,000. His chemistry as of yesterday showed a serum sodium 140, potassium 2.9, chloride 107, bicarbonate 25, anion gap of 8, BUN 11, creatinine 0.8. Estimated GFR was 96 mL per minute. His glucose was 91, calcium was 8.2. His urinalysis essentially unremarkable. His coronavirus by PCR negative; however, his urine Legionella antigens were positive. ASSESSMENT: 1. Acute hypoxic respiratory failure, multifactorial. 2. Community-acquired pneumonia as his urine Legionella antigens were positive. 3. Severe chronic obstructive pulmonary disease, has been a smoker for the last 50 years. 4. Nonsustained ventricular tachycardia, did not require cardioversion. 5. Atrial fibrillation with rapid ventricular response, rate controlled. He is coronavirus negative x 3 including PCR. 6. Hypokalemia. PLAN: To continue with IV antibiotic in the form of piperacillin/tazobactam as well as linezolid as well as azithromycin. Continue with pain management. Continue with oxygen supplementation. His potassium continues to be low, so I will increase his potassium supplement. I will repeat all his lab work tomorrow and decide on further management accordingly. JAYDEN/LORENA DR: Kory TID: [id number]
--- NOTE | 2020-12-14 10:51 | NUR ---
SS following up with discharge planning. SS reviewed pt chart and discussed with pt RN. Pt is currently requiring oxygen at three liters nasal canula. Pt has no home oxygen. Pt on PO Doxycycline. COVID19 negative. Pt has critical potassium today. PT/OT recommended acute rehabilitation. Pt declining acute rehabilitation at this time stating that he would like to return to home with his sister and home healthcare services. Referral phoned and faxed to [facility], ; fax [phone]. SS will continue to follow for discharge planning.
[2020-12-14] MEDS ORDERED: AZITHROMYCIN 250 MG TABLET. PO SCH (12:00)
[2020-12-14 15:00] VITALS: BP 142/71
[2020-12-14 19:20] VITALS: BP 179/96
[2020-12-14] MEDS: ATORVASTATIN CALCIUM 40 MG TABLET. PO SCH (21:23)
[2020-12-14] MEDS: DOXAZOSIN MESYLATE 4 MG TABLET. PO SCH (21:23)
[2020-12-15] MEDS: HYDROcodone/APAP 5/325MG 1 TAB TABLET PO PRN ×4 (00:03→23:25)
[2020-12-15] MEDS: ALPRAZolam 0.5 MG TABLET PO PRN ×2 (00:03→23:25)
[2020-12-15 03:45] VITALS: BP 157/85
[2020-12-15 05:17] LABS: BASO % 1 % (0-3); EOS # 0.2 x10^3/uL (0.0-0.7); EOS % 4 % (0-3); HEMATOCRIT 32.7 % (39.0-53.0); HEMOGLOBIN 11.1 g/dL (13.0-17.5); LYMPH # 0.2 x10^3/uL (1.0-4.8); LYMPH % 5 % (24-48); MEAN CORPUSCULAR HEMOGLOBIN 31 pg (25-35); MEAN CORPUSCULAR HGB CONC 34 g/dL (31-37); MEAN CORPUSCULAR VOLUME 92 fL (79-100); MONO # 0.3 x10^3/uL (0.0-1.1); MONO % 7 % (0-9); NEUT # 4.2 x10^3/uL (1.8-7.7); NEUT % 85 % (31-73); PLATELET COUNT 218 x10^3/uL (140-400); RED BLOOD COUNT 3.53 x10^6/uL (4.30-5.70); RED CELL DISTRIBUTION WIDTH 13.4 % (11.5-14.5)
[2020-12-15 05:53] LABS: ALBUMIN 1.7 g/dL (3.4-5.0); ALBUMIN/GLOBULIN RATIO 0.4 (1.0-1.7); CALCIUM 8.7 mg/dL (8.5-10.1); CREATININE 0.8 mg/dL (0.7-1.3); GFR 96.1; TOTAL BILIRUBIN 0.5 mg/dL (0.2-1.0); TOTAL PROTEIN 5.6 g/dL (6.4-8.2)
[2020-12-15 07:00] VITALS: BP 147/85
--- NOTE | 2020-12-15 07:44 | PDOC ---
Infectious Disease Note Subjective: Subjective Pt feels better remains afebrile Vital Signs: Vital Signs Vital Signs Date Time Temp Pulse Resp B/P (MAP) Pulse Ox O2 Delivery O2 Flow Rate FiO2 12/15/20 03:45 98.0 58 18 157/85 (109) 98 Nasal Cannula 2.0 98.0 Physical Exam: PHYSICAL EXAM GENERAL: Alert, oriented x 3 male in no acute distress. HEENT: Normocephalic, atraumatic. Anicteric. No thrush. Oral mucosa moist. NECK: Supple, no JVD. LUNGS: Coarse breath sounds. HEART: S1, S2 irregular. Tachycardia ABDOMEN: Soft, nontender, nondistended. Meier in place EXTREMITIES: No edema or cyanosis DERMATOLOGIC: Warm, dry, no generalized rash. NEUROLOGIC: Alert and oriented x 3, grossly nonfocal. PSYCHIATRIC: Calm and cooperative. Medications: Inpatient Meds: Medications reviewed. Labs: Lab Laboratory Tests Test 12/14/20 07:55 12/15/20 04:00 Sodium Level 140 mmol/L (136-145) 140 mmol/L (136-145) Potassium Level 2.9 mmol/L (3.5-5.1) 4.0 mmol/L (3.5-5.1) Chloride Level 107 mmol/L (98-107) 109 mmol/L (98-107) Carbon Dioxide Level 25 mmol/L (21-32) 25 mmol/L (21-32) Anion Gap 8 (6-14) 6 (6-14) Blood Urea Nitrogen 11 mg/dL (8-26) 9 mg/dL (8-26) Creatinine 0.8 mg/dL (0.7-1.3) 0.8 mg/dL (0.7-1.3) Estimated GFR (Cockcroft-Gault) 96.1 96.1 Glucose Level 91 mg/dL (70-99) 75 mg/dL (70-99) Calcium Level 8.2 mg/dL (8.5-10.1) 8.7 mg/dL (8.5-10.1) White Blood Count 5.0 x10^3/uL (4.0-11.0) Red Blood Count 3.53 x10^6/uL (4.30-5.70) Hemoglobin 11.1 g/dL (13.0-17.5) Hematocrit 32.7 % (39.0-53.0) Mean Corpuscular Volume 92 fL (79-100) Mean Corpuscular Hemoglobin 31 pg (25-35) Mean Corpuscular Hemoglobin Concent 34 g/dL (31-37) Red Cell Distribution Width 13.4 % (11.5-14.5) Platelet Count 218 x10^3/uL (140-400) Neutrophils (%) (Auto) 85 % (31-73) Lymphocytes (%) (Auto) 5 % (24-48) Monocytes (%) (Auto) 7 % (0-9) Eosinophils (%) (Auto) 4 % (0-3) Basophils (%) (Auto) 1 % (0-3) Neutrophils # (Auto) 4.2 x10^3/uL (1.8-7.7) Lymphocytes # (Auto) 0.2 x10^3/uL (1.0-4.8) Monocytes # (Auto) 0.3 x10^3/uL (0.0-1.1) Eosinophils # (Auto) 0.2 x10^3/uL (0.0-0.7) Basophils # (Auto) 0.0 x10^3/uL (0.0-0.2) BUN/Creatinine Ratio 11 (6-20) Total Bilirubin 0.5 mg/dL (0.2-1.0) Aspartate Amino Transf (AST/SGOT) 27 U/L (15-37) Alanine Aminotransferase (ALT/SGPT) 33 U/L (16-63) Alkaline Phosphatase 93 U/L (46-116) Total Protein 5.6 g/dL (6.4-8.2) Albumin 1.7 g/dL (3.4-5.0) Albumin/Globulin Ratio 0.4 (1.0-1.7) Objective: Assessment: Legionella pneumonia Fever improved Acute hypoxic respiratory failure with underlying chronic obstructive pulmonary disease. Covid [address] chest reviewed History of chronic obstructive pulmonary disease. History of tobaccoism. Leukocytosis and lactic acidosis. Nonsustained ventricular tachycardia. A. fib with RVR History of prostate cancer. Thrombocytopenia Right lower extremity swelling and pain Doppler negative for DVT Pulmonary edema Plan: Plan of Care Cont doxycycline Monitor labs CAROLYN WOODALL MD Dec 15, 2020 07:44
[2020-12-15] MEDS: FINASTERIDE 5 MG TABLET. PO SCH (09:00)
[2020-12-15] MEDS: LACTOBACILLUS RHAMNOSUS GG 1 CAPSULE. PO SCH ×2 (09:00→21:12)
[2020-12-15] MEDS: POTASSIUM CHLORIDE 20 MEQ TABLET.ER. PO SCH ×3 (09:01→17:10)
[2020-12-15] MEDS: AMIODARONE HCL 200 MG TABLET. PO SCH (09:01)
[2020-12-15] MEDS: ASPIRIN ENTERIC COATED 81 MG TABLET.DR. PO SCH (09:01)
[2020-12-15] MEDS: DOXYCYCLINE HYCLATE 100 MG TABLET PO SCH ×2 (09:01→21:12)
[2020-12-15] MEDS: IPRATROPIUM/ALBUTEROL 20/100mcg/INH INHALER. INH SCH ×4 (09:02→21:11)
[2020-12-15] MEDS: METOPROLOL TART IMMED RELEASE 50 MG TABLET. PO SCH ×2 (09:02→21:12)
--- NOTE | 2020-12-15 09:22 | PN ---
DATE: 12/14/2020 DAILY PROGRESS NOTE LOCATION: He is in room 256. SUBJECTIVE: This 70-year-old male remains hospitalized with pneumonia. He is feeling somewhat better on a daily basis. His major complaint is a sore bottom due to lots of diarrhea. Stool has been checked for C. diff and is pending. OBJECTIVE: VITAL SIGNS: Stable. He remains afebrile. GENERAL: He is awake and alert. CHEST: . HEART: Regular. ABDOMEN: Benign. LABORATORY DATA: Serology for legionella has turned positive since yesterday and is likely the culprit here. ASSESSMENT: Legionella pneumonia, diarrhea, rule out Clostridium difficile, atherosclerotic heart disease, cancer of the prostate. PLAN: Antibiotic adjustment per ID as needed. He will need inpatient rehab following discharge as he is quite weak at this point in time from pneumonia. ALEISHA DR: Dez TID: [id number]
[2020-12-15 11:00] VITALS: BP 171/91
--- NOTE | 2020-12-15 13:50 | PDOC ---
PULMONARY PROGRESS NOTES DATE: 12/15/20 TIME: 13:48 Subjective Patient having issues with urination Not more short of breath no cough Vitals Vital Signs Date Time Temp Pulse Resp B/P (MAP) Pulse Ox O2 Delivery O2 Flow Rate FiO2 12/15/20 11:00 98.4 68 18 171/91 (117) 94 Nasal Cannula 98.4 12/15/20 03:45 2.0 ROS: No Nausea, No Chest Pain, No Abdominal Pain, No Increase Cough General: Alert Lungs: Clear Cardiovascular: S1, S2 Abdomen: Soft, Non-tender Neuro Exam: Alert, Oriented Extremities: Other (Mild edema) Skin: Warm Labs Laboratory Tests Test 12/14/20 07:55 12/15/20 04:00 Sodium Level 140 mmol/L (136-145) 140 mmol/L (136-145) Potassium Level 2.9 mmol/L (3.5-5.1) 4.0 mmol/L (3.5-5.1) Chloride Level 107 mmol/L (98-107) 109 mmol/L (98-107) Carbon Dioxide Level 25 mmol/L (21-32) 25 mmol/L (21-32) Anion Gap 8 (6-14) 6 (6-14) Blood Urea Nitrogen 11 mg/dL (8-26) 9 mg/dL (8-26) Creatinine 0.8 mg/dL (0.7-1.3) 0.8 mg/dL (0.7-1.3) Estimated GFR (Cockcroft-Gault) 96.1 96.1 Glucose Level 91 mg/dL (70-99) 75 mg/dL (70-99) Calcium Level 8.2 mg/dL (8.5-10.1) 8.7 mg/dL (8.5-10.1) White Blood Count 5.0 x10^3/uL (4.0-11.0) Red Blood Count 3.53 x10^6/uL (4.30-5.70) Hemoglobin 11.1 g/dL (13.0-17.5) Hematocrit 32.7 % (39.0-53.0) Mean Corpuscular Volume 92 fL (79-100) Mean Corpuscular Hemoglobin 31 pg (25-35) Mean Corpuscular Hemoglobin Concent 34 g/dL (31-37) Red Cell Distribution Width 13.4 % (11.5-14.5) Platelet Count 218 x10^3/uL (140-400) Neutrophils (%) (Auto) 85 % (31-73) Lymphocytes (%) (Auto) 5 % (24-48) Monocytes (%) (Auto) 7 % (0-9) Eosinophils (%) (Auto) 4 % (0-3) Basophils (%) (Auto) 1 % (0-3) Neutrophils # (Auto) 4.2 x10^3/uL (1.8-7.7) Lymphocytes # (Auto) 0.2 x10^3/uL (1.0-4.8) Monocytes # (Auto) 0.3 x10^3/uL (0.0-1.1) Eosinophils # (Auto) 0.2 x10^3/uL (0.0-0.7) Basophils # (Auto) 0.0 x10^3/uL (0.0-0.2) BUN/Creatinine Ratio 11 (6-20) Total Bilirubin 0.5 mg/dL (0.2-1.0) Aspartate Amino Transf (AST/SGOT) 27 U/L (15-37) Alanine Aminotransferase (ALT/SGPT) 33 U/L (16-63) Alkaline Phosphatase 93 U/L (46-116) Total Protein 5.6 g/dL (6.4-8.2) Albumin 1.7 g/dL (3.4-5.0) Albumin/Globulin Ratio 0.4 (1.0-1.7) Laboratory Tests Test 12/15/20 04:00 White Blood Count 5.0 x10^3/uL (4.0-11.0) Red Blood Count 3.53 x10^6/uL (4.30-5.70) Hemoglobin 11.1 g/dL (13.0-17.5) Hematocrit 32.7 % (39.0-53.0) Mean Corpuscular Volume 92 fL (79-100) Mean Corpuscular Hemoglobin 31 pg (25-35) Mean Corpuscular Hemoglobin Concent 34 g/dL (31-37) Red Cell Distribution Width 13.4 % (11.5-14.5) Platelet Count 218 x10^3/uL (140-400) Neutrophils (%) (Auto) 85 % (31-73) Lymphocytes (%) (Auto) 5 % (24-48) Monocytes (%) (Auto) 7 % (0-9) Eosinophils (%) (Auto) 4 % (0-3) Basophils (%) (Auto) 1 % (0-3) Neutrophils # (Auto) 4.2 x10^3/uL (1.8-7.7) Lymphocytes # (Auto) 0.2 x10^3/uL (1.0-4.8) Monocytes # (Auto) 0.3 x10^3/uL (0.0-1.1) Eosinophils # (Auto) 0.2 x10^3/uL (0.0-0.7) Basophils # (Auto) 0.0 x10^3/uL (0.0-0.2) Sodium Level 140 mmol/L (136-145) Potassium Level 4.0 mmol/L (3.5-5.1) Chloride Level 109 mmol/L (98-107) Carbon Dioxide Level 25 mmol/L (21-32) Anion Gap 6 (6-14) Blood Urea Nitrogen 9 mg/dL (8-26) Creatinine 0.8 mg/dL (0.7-1.3) Estimated GFR (Cockcroft-Gault) 96.1 BUN/Creatinine Ratio 11 (6-20) Glucose Level 75 mg/dL (70-99) Calcium Level 8.7 mg/dL (8.5-10.1) Total Bilirubin 0.5 mg/dL (0.2-1.0) Aspartate Amino Transf (AST/SGOT) 27 U/L (15-37) Alanine Aminotransferase (ALT/SGPT) 33 U/L (16-63) Alkaline Phosphatase 93 U/L (46-116) Total Protein 5.6 g/dL (6.4-8.2) Albumin 1.7 g/dL (3.4-5.0) Albumin/Globulin Ratio 0.4 (1.0-1.7) Medications Active Scripts Medications Dose Route/Sig Max Daily Dose Days Date Category Metoprolol Tartrate 25 Mg Tablet 12.5 Mg PO BID 30 08/10/19 Rx Vitamin B12 (Cyanocobalamin (Vitamin B-12)) 5,000 Mcg Tab.rapdis 1,000 Mcg PO DAILY 3/25/20 Reported Aspirin 325 Mg Tablet 325 Mg PO DAILY PRN 90 02/06/19 Reported Doxazosin Mesylate 4 Mg Tablet 1 Tab PO HS 02/10/14 Reported Finasteride 5 Mg Tablet 1 Tab PO DAILY 02/10/14 Reported Alprazolam 0.5 Mg Tablet 1 Tab PO TID 02/10/14 Reported Viagra (Sildenafil Citrate) 50 Mg Tablet 1 Tab PO UD 02/10/14 Reported Pravastatin Sodium 40 Mg Tablet 1 Tab PO DAILY 02/10/14 Reported Impression . 1. Acute hypoxic respiratory failure multifactorial, improved 2. Underlying suspected severe chronic obstructive pulmonary disease from 50 years of tobacco use. 3. Abnormal chest x-ray with right upper lobe interstitial infiltrates. 4. Nonsustained ventricular tachycardia in the emergency room, did not require cardioversion. Follow cardiology 5. Atrial fibrillation with rapid ventricular response. Per cardiology 6. Fever, follow-up on cultures 7. SARS-CoV-2 negative x3 including PCR 8. legionella positive 9. Urinary retention Plan . Updated 12/15 Antibiotics per ID Placement per PCP Follow cardiology input Patient needs rehab, DVT GI prophylaxis Updated 12/14/20 Continue supplemental oxygen to keep sats above 92%, on 3 liters NC Follow ID recs for ABX : DC azithro and restart doxy legionella positive Replace KCL HTN per PCP and Cardiology Follow Cardiology recs DVT/GI PPX D/W RN Ok to discharge from our stand point Updated 12/13/20 Continue supplemental oxygen to keep sats above 92% Follow ID recs for ABX Follow Cultures NGTD Follow Cardiology recs DVT/GI PPX D/W AINSLEY NUNN MD Dec 15, 2020 13:50
[2020-12-15 15:00] VITALS: BP 134/86
[2020-12-15 19:30] VITALS: BP 110/78
[2020-12-15] MEDS: ATORVASTATIN CALCIUM 40 MG TABLET. PO SCH (21:12)
[2020-12-15] MEDS: DOXAZOSIN MESYLATE 4 MG TABLET. PO SCH (21:12)
[2020-12-15 23:05] VITALS: BP 152/94
[2020-12-16 03:20] VITALS: BP 141/81
[2020-12-16] MEDS: HYDROcodone/APAP 5/325MG 1 TAB TABLET PO PRN ×2 (03:35→09:31)
--- NOTE | 2020-12-16 04:07 | NUR ---
Patient refusing to wear teletypesetter monitor. Keeps pulling tele monitor off. After reapplying tele monitor back on patient he pulls it back off again. When asked if he knows where he is he replies "Yes this is [facility] and I do not like this place". Patient also requesting to have SL taken out. Spoke to Dr Anders and obtained order to D/C tele monitor. Patient resting in bed. Bed alarm on. Call light at hand. Placed Tele Monitor [phone] back at nurses desk.
[2020-12-16 07:00] VITALS: BP 145/85
--- NOTE | 2020-12-16 08:33 | PDOC ---
Infectious Disease Note Subjective: Subjective Pt feels better remains afebrile Vital Signs: Vital Signs Vital Signs Date Time Temp Pulse Resp B/P (MAP) Pulse Ox O2 Delivery O2 Flow Rate FiO2 12/16/20 04:05 20 95 Nasal Cannula 2.0 12/16/20 03:20 97.7 76 141/81 (101) 97.7 Physical Exam: PHYSICAL EXAM GENERAL: Alert, oriented x 3 male in no acute distress. HEENT: Normocephalic, atraumatic. Anicteric. No thrush. Oral mucosa moist. NECK: Supple, no JVD. LUNGS: Coarse breath sounds. HEART: S1, S2 irregular. Tachycardia ABDOMEN: Soft, nontender, nondistended. Meier in place EXTREMITIES: No edema or cyanosis DERMATOLOGIC: Warm, dry, no generalized rash. NEUROLOGIC: Alert and oriented x 3, grossly nonfocal. PSYCHIATRIC: Calm and cooperative. Medications: Inpatient Meds: Medications reviewed. Objective: Assessment: Legionella pneumonia Fever improved Acute hypoxic respiratory failure with underlying chronic obstructive pulmonary disease. Covid [address] chest reviewed History of chronic obstructive pulmonary disease. History of tobaccoism. Leukocytosis and lactic acidosis. Nonsustained ventricular tachycardia. A. fib with RVR History of prostate cancer. Thrombocytopenia Right lower extremity swelling and pain Doppler negative for DVT Pulmonary edema Plan: Plan of Care Cont doxycycline Monitor labs CAROLYN WOODALL MD Dec 16, 2020 08:33
--- NOTE | 2020-12-16 09:30 | PDOC ---
PULMONARY PROGRESS NOTES DATE: 12/16/20 TIME: 09:29 Subjective Patient wants to go home, off of oxygen no new symptoms Vitals Vital Signs Date Time Temp Pulse Resp B/P (MAP) Pulse Ox O2 Delivery O2 Flow Rate FiO2 12/16/20 07:00 98.0 69 18 145/85 (105) 98 Room Air 98.0 12/16/20 04:05 2.0 ROS: No Nausea, No Chest Pain, No Abdominal Pain, No Increase Cough General: Alert Lungs: Clear Cardiovascular: S1, S2 Abdomen: Soft, Non-tender Neuro Exam: Alert, Oriented Extremities: Other (Mild edema) Skin: Warm Labs Laboratory Tests Test 12/15/20 04:00 White Blood Count 5.0 x10^3/uL (4.0-11.0) Red Blood Count 3.53 x10^6/uL (4.30-5.70) Hemoglobin 11.1 g/dL (13.0-17.5) Hematocrit 32.7 % (39.0-53.0) Mean Corpuscular Volume 92 fL (79-100) Mean Corpuscular Hemoglobin 31 pg (25-35) Mean Corpuscular Hemoglobin Concent 34 g/dL (31-37) Red Cell Distribution Width 13.4 % (11.5-14.5) Platelet Count 218 x10^3/uL (140-400) Neutrophils (%) (Auto) 85 % (31-73) Lymphocytes (%) (Auto) 5 % (24-48) Monocytes (%) (Auto) 7 % (0-9) Eosinophils (%) (Auto) 4 % (0-3) Basophils (%) (Auto) 1 % (0-3) Neutrophils # (Auto) 4.2 x10^3/uL (1.8-7.7) Lymphocytes # (Auto) 0.2 x10^3/uL (1.0-4.8) Monocytes # (Auto) 0.3 x10^3/uL (0.0-1.1) Eosinophils # (Auto) 0.2 x10^3/uL (0.0-0.7) Basophils # (Auto) 0.0 x10^3/uL (0.0-0.2) Sodium Level 140 mmol/L (136-145) Potassium Level 4.0 mmol/L (3.5-5.1) Chloride Level 109 mmol/L (98-107) Carbon Dioxide Level 25 mmol/L (21-32) Anion Gap 6 (6-14) Blood Urea Nitrogen 9 mg/dL (8-26) Creatinine 0.8 mg/dL (0.7-1.3) Estimated GFR (Cockcroft-Gault) 96.1 BUN/Creatinine Ratio 11 (6-20) Glucose Level 75 mg/dL (70-99) Calcium Level 8.7 mg/dL (8.5-10.1) Total Bilirubin 0.5 mg/dL (0.2-1.0) Aspartate Amino Transf (AST/SGOT) 27 U/L (15-37) Alanine Aminotransferase (ALT/SGPT) 33 U/L (16-63) Alkaline Phosphatase 93 U/L (46-116) Total Protein 5.6 g/dL (6.4-8.2) Albumin 1.7 g/dL (3.4-5.0) Albumin/Globulin Ratio 0.4 (1.0-1.7) Medications Active Scripts Medications Dose Route/Sig Max Daily Dose Days Date Category Metoprolol Tartrate 25 Mg Tablet 12.5 Mg PO BID 30 08/10/19 Rx Vitamin B12 (Cyanocobalamin (Vitamin B-12)) 5,000 Mcg Tab.rapdis 1,000 Mcg PO DAILY 08/10/19 Reported Aspirin 325 Mg Tablet 325 Mg PO DAILY PRN 90 02/06/19 Reported Doxazosin Mesylate 4 Mg Tablet 1 Tab PO HS 02/10/14 Reported Finasteride 5 Mg Tablet 1 Tab PO DAILY 02/10/14 Reported Alprazolam 0.5 Mg Tablet 1 Tab PO TID 02/10/14 Reported Viagra (Sildenafil Citrate) 50 Mg Tablet 1 Tab PO UD 02/10/14 Reported Pravastatin Sodium 40 Mg Tablet 1 Tab PO DAILY 02/10/14 Reported Impression . 1. Acute hypoxic respiratory failure multifactorial, improved 2. Underlying suspected severe chronic obstructive pulmonary disease from 50 years of tobacco use. 3. Abnormal chest x-ray with right upper lobe interstitial infiltrates. 4. Nonsustained ventricular tachycardia in the emergency room, did not require cardioversion. Follow cardiology 5. Atrial fibrillation with rapid ventricular response. Per cardiology 6. Fever, follow-up on cultures 7. SARS-CoV-2 negative x3 including PCR 8. legionella positive 9. Urinary retention Plan . Updated 12/16 Patient wishes to go home 6-minute walk Continue doxycycline coverage for Legionella Follow-up in my office in January Discussed with RN, and Dr. Perea Updated 12/15 Antibiotics per ID Placement per PCP Follow cardiology input Patient needs rehab, DVT GI prophylaxis Updated 12/14/20 Continue supplemental oxygen to keep sats above 92%, on 3 liters NC Follow ID recs for ABX : DC azithro and restart doxy legionella positive Replace KCL HTN per PCP and Cardiology Follow Cardiology recs DVT/GI PPX D/W RN Ok to discharge from our stand point [facility]LEY [facility] MD Dec 16, 2020 09:30
[2020-12-16] MEDS: ASPIRIN ENTERIC COATED 81 MG TABLET.DR. PO SCH (09:32)
[2020-12-16] MEDS: LACTOBACILLUS RHAMNOSUS GG 1 CAPSULE. PO SCH (09:32)
[2020-12-16] MEDS: FINASTERIDE 5 MG TABLET. PO SCH (09:32)
[2020-12-16] MEDS: DOXYCYCLINE HYCLATE 100 MG TABLET PO SCH (09:32)
[2020-12-16] MEDS: AMIODARONE HCL 200 MG TABLET. PO SCH (09:32)
[2020-12-16] MEDS: METOPROLOL TART IMMED RELEASE 50 MG TABLET. PO SCH (09:33)
[2020-12-16] MEDS: POTASSIUM CHLORIDE 20 MEQ TABLET.ER. PO SCH ×2 (09:33→14:05)
[2020-12-16] MEDS: IPRATROPIUM/ALBUTEROL 20/100mcg/INH INHALER. INH SCH ×2 (09:34→12:00)
[2020-12-16 11:00] VITALS: BP 139/72
[2020-12-16] MEDS ORDERED: HYDR-2759 PO (11:37)
[2020-12-16] MEDS ORDERED: HYDR-2761 PO ×2 (11:40→11:45)
[2020-12-16] MEDS ORDERED: METO50TA6 PO (13:03)
[2020-12-16] MEDS ORDERED: AMIO400T5 PO (13:04)
[2020-12-16] MEDS ORDERED: DOXY100C3 PO (13:04)
--- NOTE | 2020-12-16 15:43 | NUR ---
Discharge Note: DEBBIE RICO Discharge instructions and discharge home medications reviewed with Patient and a copy given. All questions have been answered and understanding verbalized.Pt son at bedside and verbalized understanding of all DC medication changes. Son will be staying with patient for two weeks to assist at home. Pt in stable condition at time of DC. Discharged via wheelchair.
== END 2020-12-16 14:30 | disposition home or self-care (01) | DRG 871 ==
LOC: ER 14:14 → 2 SOUTH 16:44 → ED HOLD 16:49 → 2 SOUTH 12-09 15:23 → 6 SOUTH 12-14 11:31
PROVIDERS: ADMIT Family Medicine; ATTEND Family Medicine
DX: A41.89 Other specified sepsis (principal); I50.33 Acute on chronic diastolic (congestive) heart failure; J18.9 Pneumonia, unspecified organism; J96.01 Acute respiratory failure with hypoxia; I47.2 Ventricular tachycardia; N17.9 Acute kidney failure, unspecified; C61 Malignant neoplasm of prostate; D69.6 Thrombocytopenia, unspecified; E78.00 Pure hypercholesterolemia, unspecified; E78.5 Hyperlipidemia, unspecified; E83.42 Hypomagnesemia; E87.6 Hypokalemia; F17.200 Nicotine dependence, unspecified, uncomplicated; I11.0 Hypertensive heart disease with heart failure; I25.10 Atherosclerotic heart disease of native coronary artery without angina pectoris; I48.0 Paroxysmal atrial fibrillation; I73.9 Peripheral vascular disease, unspecified; J44.9 Chronic obstructive pulmonary disease, unspecified; N40.1 Benign prostatic hyperplasia with lower urinary tract symptoms; R33.8 Other retention of urine; Z85.46 Personal history of malignant neoplasm of prostate; Z95.5 Presence of coronary angioplasty implant and graft; Z96.649 Presence of unspecified artificial hip joint; F32.9 Major depressive disorder, single episode, unspecified; F41.9 Anxiety disorder, unspecified; G89.29 Other chronic pain; M19.90 Unspecified osteoarthritis, unspecified site; Z20.822 Contact with and (suspected) exposure to COVID-19
CPT/HCPCS: 36415; 36600; 71045; 71250; 80048; 80053; 80061; 81001; 82805; 82962; 83605; 83735; 83880; 84132; 84484; 85007; 85025; 87040; 87426; 87449; 87493; 93005; 93306; 93971; 94618; 94640; J0282; J1160; J1940; J2543; J2930; J3475; J3480; J7030; J7060; U0003; U0005; 97110-GP; 97116-GP; 97530-GP; 99291-25; G0378; J7613